=== PATIENT | male | born 1960 | race Caucasian/White ===

== ENCOUNTER 2018-03-12 06:55 | Emergency (ER) | payer MEDICAID, OTHER ==
[2018-03-12 06:59] VITALS: BP 98/71
[2018-03-12] MEDS ORDERED: chlordiazePOXIDE 25 MG CAP PO ONE (06:59)
--- NOTE | 2018-03-12 07:02 | EDPHY ---
H & P Stated Complaint: withdrawl fron heroine and etoh Time Seen by Provider: 03/12/18 07:01 HPI/ROS: CHIEF COMPLAINT: Heroin withdrawal HISTORY OF PRESENT ILLNESS: The patient is a 57-year-old homeless man who comes to the emergency department requesting Suboxone. He states that he has not used heroin in a day. He typically gets Suboxone from [facility] in [place] but ran out. He states that he is scared to go back to [place] because his friend got shot. He states that he has also been drinking heavily every night until he passes out. He call an ambulance this morning asking for a refill of Suboxone. No vomiting. No abdominal pain. No muscle cramping. No headache. No injury. No fevers. REVIEW OF SYSTEMS: Constitutional: denies: chills, fever, recent illness, recent injury EENTM: denies: blurred vision, double vision, nose congestion Respiratory: denies: cough, shortness of breath Cardiac: denies: chest pain, irregular heart rate, lightheadedness, palpitations Gastrointestinal/Abdominal: denies: abdominal pain, diarrhea, nausea, vomiting, blood streaked stools Genitourinary: denies: dysuria, frequency, hematuria, pain Musculoskeletal: denies: joint pain, muscle pain Skin: denies: lesions, rash, jaundice, bruising Neurological: denies: headache, numbness, paresthesia, tingling, dizziness, weakness Hematologic/Lymphatic: denies: blood clots, easy bleeding, easy bruising Immunologic/allergic: denies: HIV/AIDS, transplant EXAM: GENERAL: Disheveled HEAD: Atraumatic, normocephalic. EYES: Pupils equal round and reactive to light, extraocular movements intact, sclera anicteric, conjunctiva are normal. ENT: TMs normal, nares patent, oropharynx clear without exudates. Moist mucous membranes. NECK: Normal range of motion, supple without lymphadenopathy or JVD. LUNGS: Breath sounds clear to auscultation bilaterally and equal. No wheezes rales or rhonchi. HEART: Regular rate and rhythm without murmurs, rubs or gallops. ABDOMEN: Soft, nontender, normoactive bowel sounds. No guarding, no rebound. No masses appreciated. BACK: No CVA tenderness, no spinal tenderness, step-offs or deformities EXTREMITIES: Normal range of motion, no pitting or edema. No clubbing or cyanosis. NEUROLOGICAL: Cranial nerves II through XII grossly intact. Normal speech, normal gait. 5/5 strength, normal movement in all extremities, normal sensation PSYCH: Normal mood, normal affect. SKIN: Warm, dry, normal turgor, no visible rashes or lesions. Source: Patient, EMS Exam Limitations: No limitations - Personal History Current Tetanus/Diphtheria Vaccine: Yes Current Tetanus Diphtheria and Acellular Pertussis (TDAP): Yes - Medical/Surgical History Hx Asthma: No Hx Chronic Respiratory Disease: No Hx Diabetes: No Hx Cardiac Disease: No Hx Renal Disease: No Hx Cirrhosis: No Hx Alcoholism: Yes Hx HIV/AIDS: No Hx Splenectomy or Spleen Trauma: No Other PMH: CHI, PTSD, bipolar - Family History Significant Family History: No pertinent family hx - Social History Smoking Status: Current every day smoker Alcohol Use: Heavy Drug Use: Heroin, Other Constitutional: Initial Vital Signs Temperature (C) 36.6 C 03/12/18 06:56 Heart Rate 85 03/12/18 06:56 Respiratory Rate 18 03/12/18 06:56 Blood Pressure 98/71 L 03/12/18 06:56 O2 Sat (%) 96 03/12/18 06:56 O2 Delivery Mode Room Air Allergies/Adverse Reactions: No Known Allergies Allergy (Unverified 03/12/18 06:58) Home Medications: Medication Instructions Recorded "Klorazepam" 03/11/16 QUEtiapine FUMARATE [Seroquel 200 200 mg PO BID 03/11/16 mg (*)] hydrOXYzine HCL [hydrOXYzine HCL 25 mg PO 03/11/16 (RX)] Gabapentin 600 mg PO 03/12/18 Medical Decision Making ED Course/Re-evaluation: I informed the patient that we do not provide Suboxone. I recommended he return to the [facility] this morning. He is complaining of anxiety. I will treat him with Librium. We offered to [facility] but he declines. He is stable vital signs and is well- appearing. He declines further workup or testing. His blood pressure is slightly low but this is baseline. Differential Diagnosis: Partial list of the Differential diagnosis considered include but were not limited to; anxiety, substance abuse, withdrawal and although unlikely based on the history and physical exam, I also considered infection, head injury. I discussed these differential diagnoses and the plan with the patient as well as the usual and expected course. The patient understands that the diagnosis is provisional and that in medicine we are not always correct and that further workup is often warranted. Usual and customary warnings were given. All of the patient's questions were answered. The patient was instructed to return to the emergency department should the symptoms at all worsen or return, otherwise to followup with the physician as we discussed. - Data Points Medications Given: Discontinued Medications Chlordiazepoxide HCl (Librium) 50 mg PO EDNOW ONE Stop: 03/12/18 07:00 Last Admin: 03/12/18 07:04 Dose: 50 mg Departure - Departure Disposition: Home, Routine, Self-Care Clinical Impression: Heroin abuse Alcohol dependence Qualifiers: Substance use status: unspecified alcohol-induced disorder Qualified Code(s): F10.29 - Alcohol dependence with unspecified alcohol-induced disorder Condition: Fair Instructions: Narcotic Abuse (ED), Abuse of Alcohol (ED) Additional Instructions: [facility] [address] [place], [place] [address], [place] Referrals: NONE *PRIMARY CARE P,. [Primary Care Provider] - 1 day without fail ([facility] in the next couple of hours)
== END 2018-03-12 07:14 | disposition home or self-care (01) ==
LOC: EDUNIT#
DX: F11.10 Opioid abuse, uncomplicated (principal); F10.20 Alcohol dependence, uncomplicated; F17.200 Nicotine dependence, unspecified, uncomplicated

== ENCOUNTER 2018-06-08 01:05 | Emergency (ER) | payer MEDICAID, OTHER ==
[2018-06-08] MEDS ORDERED: NS 1,000 ML IV ONE (01:08)
--- NOTE | 2018-06-08 01:10 | EDPHY ---
H & P Time Seen by Provider: 06/08/18 01:08 HPI/ROS: HPI CHIEF COMPLAINT: Alcohol intoxication, confusion HISTORY OF PRESENT ILLNESS: Patient 58-year-old male, very familiar to myself as well as the emergency room history of homelessness, and daily alcohol use. Patient presents emergency room after [place]. He states that he has been outside in the cold and feels more confused due to the cold weather, additionally states he drank a large amount of alcohol this evening. Additionally palpitations. No chest pain. No shortness of breath. He arrives to the emergency room by EMS with stable vital signs highly intoxicated with alcohol. Past Medical History: Alcoholism. Homeless Past Surgical History: Recent surgery Social History: Daily alcohol use. Homeless. Family History: Noncontributory ROS REVIEW OF SYSTEMS: Limited due to alcohol intoxication Exam Constitutional intoxicated, smells of alcohol, triage nursing summary reviewed , vital signs reviewed, awake/alert. Eyes normal conjunctivae and sclera, EOMI, PERRLA. HENT normal inspection, atraumatic, moist mucus membranes, no epistaxis, neck supple/ no meningismus, no raccoon eyes. Respiratory clear to auscultation bilaterally, normal breath sounds, no respiratory distress, no wheezing. Cardiovascular rate normal, regular rhythm, no murmur, no edema, distal pulses normal. Gastrointestinal soft, non-tender, no rebound, no guarding, normal bowel sounds, no distension, no pulsatile mass. Genitourinary no CVA tenderness. Musculoskeletal no midline vertebral tenderness, full range of motion, no calf swelling, no tenderness of extremities, no meningismus, good pulses, neurovascularly intact. Skin pink, warm, & dry, no rash, skin atraumatic. Neurologic awake, alert and oriented x 3, AAOx3, moves all 4 extremities equally, motor intact, sensory intact, CN II-XII intact, normal cerebellar, normal vision, normal speech. Psychiatric normal mood/affect. Heme/Lymph/Immune no lymphadenopathy. Differential Diagnosis: Includes but is not limited to in a particular order acute alcohol intoxication, dehydration, electrolyte disturbance, cold exposure , cardiac arrhythmia. Medical Decision Making: Plan for this patient IV establishment with IV fluid bolus, check serum alcohol level basic electrolytes, magnesium, EKG, troponin. Vital signs. Make sure he is not hypothermic. Monitor closely. Re-evaluation: EKG interpretation by me on record in [employer] system. Impression time of EKG 1:17 a.m., sinus rhythm rate of 80 without any signs of acute ischemia. EKG is unchanged from his previous EKG dated 03/31/2018. Serum alcohol level 411. 0640: Patient ambulated well throughout the emergency room without any difficulty. Clinically sober. Safe for discharge. Source: Patient, EMS - Medical/Surgical History Hx Asthma: No Hx Chronic Respiratory Disease: No Hx Diabetes: No Hx Cardiac Disease: No Hx Renal Disease: No Hx Cirrhosis: No Hx Alcoholism: Yes Hx HIV/AIDS: No Hx Splenectomy or Spleen Trauma: No Other PMH: CHI, PTSD, bipolar, ETOH - Social History Smoking Status: Current every day smoker Constitutional: Initial Vital Signs Temperature (C) 35 C L 06/08/18 01:25 Heart Rate 74 06/08/18 01:25 Respiratory Rate 16 06/08/18 01:25 Blood Pressure 109/74 06/08/18 01:25 O2 Sat (%) 92 06/08/18 01:25 O2 Delivery Mode Room Air O2 (L/minute) 2 Allergies/Adverse Reactions: No Known Allergies Allergy (Unverified 06/08/18 01:24) Home Medications: Medication Instructions Recorded "Klorazepam" 03/11/16 hydrOXYzine HCL [hydrOXYzine HCL 25 mg PO 03/11/16 (RX)] Gabapentin 600 mg PO 03/12/18 QUEtiapine FUMARATE [Seroquel 200 200 mg PO BID #60 tab 03/31/18 mg (*)] clonazePAM [Klonopin] 2 mg PO BID #60 tablet 03/31/18 Medical Decision Making - Data Points Laboratory Results: Laboratory Results 06/08/18 01:18 06/08/18 01:18 06/08/18 06/08/18 06/08/18 01:18 01:18 01:16 WBC 9.42 10^3/uL 10^3/uL (3.80-9.50) RBC 5.34 10^6/uL 10^6/uL (4.40-6.38) Hgb 15.7 g/dL g/dL (13.7-17.5) Hct 47.9 % % (40.0-51.0) MCV 89.7 fL fL (81.5-99.8) MCH 29.4 pg pg (27.9-34.1) MCHC 32.8 g/dL g/dL (32.4-36.7) RDW 13.7 % % (11.5-15.2) Plt Count 284 10^3/uL 10^3/uL (150-400) MPV 9.1 fL fL (8.7-11.7) Neut % (Auto) 62.0 % % (39.3-74.2) Lymph % (Auto) 31.4 % % (15.0-45.0) [place] % (Auto) 5.7 % % (4.5-13.0) Eos % (Auto) 0.2 % L % (0.6-7.6) Baso % (Auto) 0.5 % % (0.3-1.7) Nucleat RBC Rel Count 0.0 % % (0.0-0.2) Absolute Neuts (auto) 5.83 10^3/uL 10^3/uL (1.70-6.50) Absolute Lymphs (auto) 2.96 10^3/uL 10^3/uL (1.00-3.00) Absolute Monos (auto) 0.54 10^3/uL 10^3/uL (0.30-0.80) Absolute Eos (auto) 0.02 10^3/uL L 10^3/uL (0.03-0.40) Absolute Basos (auto) 0.05 10^3/uL 10^3/uL (0.02-0.10) Absolute Nucleated RBC 0.00 10^3/uL 10^3/uL (0-0.01) Immature Gran % 0.2 % % (0.0-1.1) Immature Gran # 0.02 10^3/uL 10^3/uL (0.00-0.10) Sodium 144 mEq/L mEq/L (135-145) Potassium 3.9 mEq/L mEq/L (3.3-5.0) Chloride 104 mEq/L mEq/L (97-110) Carbon Dioxide 25 mEq/l mEq/l (22-31) Anion Gap 15 mEq/L H mEq/L (6-14) BUN 18 mg/dL mg/dL (7-23) Creatinine 1.0 mg/dL mg/dL (0.7-1.3) Estimated GFR > 60 Glucose 83 mg/dL mg/dL (70-100) Calcium 9.3 mg/dL mg/dL (8.5-10.4) Magnesium 1.8 mg/dL mg/dL (1.6-2.3) Total Bilirubin 0.7 mg/dL mg/dL (0.1-1.4) Conjugated Bilirubin 0.5 mg/dL mg/dL (0.0-0.5) Unconjugated Bilirubin 0.2 mg/dL mg/dL (0.0-1.1) AST 97 IU/L H IU/L (17-59) ALT 61 IU/L IU/L (21-72) Alkaline Phosphatase 119 IU/L IU/L (38-126) POC Troponin I 0.01 ng/mL ng/mL (0.00-0.08) Total Protein 8.0 g/dL g/dL (6.3-8.2) Albumin 4.2 g/dL g/dL (3.5-5.0) Ethyl Alcohol 411 mg/dL H* mg/dL (0-10) Medications Given: Discontinued Medications Sodium Chloride (Ns) 1,000 mls @ 0 mls/hr IV EDNOW ONE; Wide Open PRN Reason: Protocol Stop: 06/08/18 01:09 Last Admin: 06/08/18 01:20 Dose: 1,000 mls Point of Care Test Results: Chemistry 06/08/18 01:16 POC Troponin I 0.01 ng/mL ng/mL (0.00-0.08) Departure - Departure Disposition: Home, Routine, Self-Care Clinical Impression: Alcoholic intoxication Qualifiers: Complication of substance-induced condition: uncomplicated Qualified Code(s): F10.920 - Alcohol use, unspecified with intoxication, uncomplicated Condition: Good Instructions: Alcohol Intoxication (ED), Abuse of Alcohol (ED) Referrals: NONE *PRIMARY CARE P,. [Primary Care Provider] - As per Instructions
[2018-06-08 01:22] LABS: PLATELET COUNT 284 10^3/uL (150-400)
[2018-06-08 06:46] VITALS: BP 95/70
== END 2018-06-08 06:44 | disposition home or self-care (01) ==
LOC: EDUNIT#
DX: F10.129 Alcohol abuse with intoxication, unspecified (principal); E86.9 Volume depletion, unspecified; Z59.0 Homelessness
CPT/HCPCS: 84484-PO; G0480

== ENCOUNTER 2018-06-14 04:13 | Emergency (ER) | payer MEDICAID ==
[2018-06-14] MEDS ORDERED: NS 1,000 ML IV ONE ×4 (04:17→08:04)
--- NOTE | 2018-06-14 04:20 | EDPHY ---
H & P Source: Patient, EMS Exam Limitations: Clinical condition, Intoxication - Medical/Surgical History Hx Asthma: No Hx Chronic Respiratory Disease: No Hx Diabetes: No Hx Cardiac Disease: No Hx Renal Disease: No Hx Cirrhosis: No Hx Alcoholism: Yes Hx HIV/AIDS: No Hx Splenectomy or Spleen Trauma: No Other PMH: CHI, PTSD, bipolar, ETOH - Social History Smoking Status: Current every day smoker Time Seen by Provider: 06/14/18 04:18 HPI/ROS: HPI CHIEF COMPLAINT: Left-sided chest discomfort. Sharp stabbing. HISTORY OF PRESENT ILLNESS: This is a 58-year-old male, homeless, history of alcoholism daily alcohol use, presents emergency room by EMS with left-sided chest discomfort. Describes the pain as sharp stabbing. Pain is worse when he takes deep breath in. Of note the patient is very poor historian. History review of systems somewhat limited. He is unsure exactly when it started. He presents emergency room, he does drink alcohol daily had alcohol earlier this evening. Of noted is noted that his hands are caked in feces Patient denies any trauma this evening. Denies chest wall trauma.. Past Medical History: Alcoholism, homeless. Possible history of CVA Past Surgical History: No recent surgical history Social History: Homeless, daily alcohol use. Family History: Noncontributory ROS REVIEW OF SYSTEMS: Limited due to patient being a poor historian. Exam Constitutional nontoxic appearing, triage nursing summary reviewed, vital signs reviewed, awake/alert. Eyes normal conjunctivae and sclera, EOMI, PERRLA. HENT normal inspection, atraumatic, moist mucus membranes, no epistaxis, neck supple/ no meningismus, no raccoon eyes. Respiratory clear to auscultation bilaterally, normal breath sounds, no respiratory distress, no wheezing. Cardiovascular chest wall mild tender palpation left lateral chest wall, rate normal, regular rhythm, no murmur, no edema, distal pulses normal. Gastrointestinal soft, non-tender, no rebound, no guarding, normal bowel sounds, no distension, no pulsatile mass. Genitourinary no CVA tenderness. Musculoskeletal no midline vertebral tenderness, full range of motion, no calf swelling, no tenderness of extremities, no meningismus, good pulses, neurovascularly intact. Skin pink, warm, & dry, no rash, skin atraumatic. Neurologic awake, alert and oriented x 3, AAOx3, moves all 4 extremities equally, motor intact, sensory intact, CN II-XII intact, normal cerebellar, normal vision, normal speech. Psychiatric normal mood/affect. Heme/Lymph/Immune no lymphadenopathy. Differential diagnosis includes but is not limited to: ACS, atypical chest pain , pneumothorax, pneumonia, pulmonary embolism, aortic dissection, congestive heart failure, tumor, musculoskeletal pain, esophageal pain, GERD, peptic ulcer disease, pancreatitis Medical Decision Making: Plan for this patient IV establishment IV fluid bolus , obtain EKG, troponin, chest x-ray rule out pneumothorax, rule out PE, rule out ACS. Re-evaluation: EKG interpretation by me on record in [employer] system. Impression time of EKG 4:19 a.m., this is sinus tach rate of 104, Q-waves noted inferior leads to 3 AVF I do not appreciate ST elevation. When I compare this patient's EKG to his old EKG dated 03/31/2018 this is very similar morphology. Him the Q-wave complex seen inferior L very similar. I had Dr. Salas evaluate this EKG compared to his old EK G. It is unchanged she does not feel that this an acute ST elevation GA. Patient's chest x-ray reviewed. This shows a left-sided dense pneumonia. Blood culture be obtain. Lactic acid be obtain. Broad-spectrum antibiotics will be given IV vancomycin IV Zosyn. Patient's x-ray reviewed shows a left-sided dense pneumonia. Broad-spectrum antibiotics have been given. Hospitalist service as been consult for admission. Dr. Mike. Labs reviewed. Low potassium low magnesium. These have been ordered for be repleted. Addition patient's lactic acid was elevated above 2. He is afebrile. He has received 2 L of fluid. Repeat lactic pending. Patient placed on CIWA protocol for alcohol withdrawal. 0723AM: Patient has a change in his condition. His heart rate was within the 110s and is now in the 170s. The patient's respiratory rate is increased to 30s to 40s. He is now satting 83% on a non-rebreather. He is agitated. He is going to active withdrawal. IV Ativan has been ordered. Due to his increase in heart rate the patient have an EKG. Patient quickly decompensated at 7:15 a.m.. The patient had a rather quick decompensation. His heart rate became very tachycardic in the 180s. He was hypoxic to 80%. Acutely agitated. He appeared to be going through significant alcohol withdrawal. Due to the patient's acute agitation, hypoxia, tachycardia, respiratory distress with tachypnea the decision was made to intubate the patient emergently. The patient was moved from ER room 12 to ER room 1. RSI medications were pulled. 20 mg of etomidate. 120 mg of succinylcholine was given. ED intubation Direct visualization was obtain with a MAC 4 blade. A 7.5 endotracheal tube was placed directly through the cords. The tube was confirmed in position with good color change on capnography. Bilateral breath sounds, and chest x-ray. Patient has been started on a propofol drip for sedation. Propofol bolus. Precedex. For alcohol draw. Patient's vital signs post intubation current blood pressure 173/49, heart rate 164. 98% intubated. Critical Care: Total Critical Care Time Spent Managing this Patient: 65 Minutes. This time was spent Exclusively with this patient. This Care was exclusive of procedures. The Organ System/life at risk was alcohol draw, delirium tremens, hypoxia, pneumonia, sepsis This Patient was in Critical Condition because respiratory failure. 0742: Hospitalist service as been updated on this patient's condition and changing condition. Patient be admitted to the ICU. Dr. Mike aware. EKG interpretation by me on record in [employer] system. Impression time of EKG 7:46 a.m., SVT rate of 157. No signs of acute ischemia. Chest x-ray reviewed. Endotracheal tube in appropriate position. Slightly high. Will be advanced 1 cm. Dense left pneumonia. Update hospitalist service Deanna COMPUTER CONSULTANT. Understands patient is intubated. Currently patient stable. Patient's current vital signs heart rate 134, pulse ox 97% intubation, blood pressure 106/67. Patient to be admitted to ICU. (Hemal Medeiros) Constitutional: Initial Vital Signs Temperature (C) 36.9 C 06/14/18 04:17 Heart Rate 113 H 06/14/18 04:17 Respiratory Rate 20 06/14/18 04:17 Blood Pressure 130/81 H 06/14/18 04:17 O2 Sat (%) 94 06/14/18 04:17 O2 Delivery Mode Room Air O2 (L/minute) 2 Allergies/Adverse Reactions: No Known Allergies Allergy (Unverified 06/14/18 04:16) Home Medications: Medication Instructions Recorded "Klorazepam" 03/11/16 hydrOXYzine HCL [hydrOXYzine HCL 25 mg PO 03/11/16 (RX)] Gabapentin 600 mg PO 03/12/18 QUEtiapine FUMARATE [Seroquel 200 200 mg PO BID #60 tab 03/31/18 mg (*)] clonazePAM [Klonopin] 2 mg PO BID #60 tablet 03/31/18 Medical Decision Making - Diagnostics Imaging Results: Imaging Impressions Chest X-Ray 06/14/18 04:17 Impression: Bilateral opacities, largest on the left. This may represent multifocal pneumonia although recommend follow-up studies after treatment to ensure resolution and to exclude underlying malignancy. Other Provider: The patient remained in the emergency department and our ICU is currently full. I discussed this with the ICU adjunct nursing faculty and we feel the patient will be best served transferring to a higher level of care where he can receive inpatient ICU care. I contacted Dr. Mohamud at [facility] who has accepted the patient for admission to the medical ICU. The patient will be transferred via critical care transport. I have filled out the EMTALA transfer form. (Nestor Uriarte) - Data Points Laboratory Results: Laboratory Results 06/14/18 04:55 06/14/18 06/14/18 06/14/18 05:45 05:45 05:45 WBC RBC Hgb POC Hgb Hct POC Hct MCV MCH MCHC RDW Plt Count MPV Neut % (Auto) Lymph % (Auto) [place] % (Auto) Eos % (Auto) Baso % (Auto) Nucleat RBC Rel Count Absolute Neuts (auto) Absolute Lymphs (auto) Absolute Monos (auto) Absolute Eos (auto) Absolute Basos (auto) Absolute Nucleated RBC Immature Gran % Seg Neutrophils % Band Neutrophils % Lymphocytes % Monocytes % Eosinophils % Basophils % Metamyelocytes % Myelocytes % Promyelocytes % Blast Cells % Immature Gran # Absolute Seg Neuts Absolute Band Neuts Absolute Lymphocytes Absolute Monocytes Absolute Eosinophils Absolute Basophils Absolute Metamyelocyte Absolute Myelocytes Absolute Promyelocytes Absolute Plasma Cells RBC/WBC/PLT Morphology Absolute Blast Cells Plasma Cells % Platelet Estimate PT 13.8 SEC SEC (12.0-15.0) INR 1.04 (0.83-1.16) APTT 31.3 SEC SEC (23.0-38.0) D-Dimer 0.72 ug/mLFEU H ug/mLFEU (0.00-0.50) VBG Lactic Acid 2.4 mmol/L H mmol/L (0.7-2.1) POC Sodium POC Potassium POC Chloride POC BUN POC Creatinine POC Glucose Magnesium 0.9 mg/dL L* mg/dL (1.6-2.3) Total Bilirubin 1.5 mg/dL H mg/dL (0.1-1.4) Conjugated Bilirubin 0.5 mg/dL mg/dL (0.0-0.5) Unconjugated Bilirubin 1.0 mg/dL mg/dL (0.0-1.1) AST 57 IU/L IU/L (17-59) ALT 44 IU/L IU/L (21-72) Alkaline Phosphatase 86 IU/L IU/L (38-126) POC Troponin I NT-Pro-B Natriuret Pep 1720 pg/mL H pg/mL (0-125) Total Protein 6.4 g/dL g/dL (6.3-8.2) Albumin 3.2 g/dL L g/dL (3.5-5.0) Lipase 33 IU/L IU/L (23-300) Ethyl Alcohol 38 mg/dL H mg/dL (0-10) 06/14/18 06/14/18 06/14/18 05:35 05:07 05:00 WBC RBC Hgb POC Hgb 15.3 gm/dL gm/dL (13.7-17.5) Hct POC Hct 45 % % (40-51) MCV MCH MCHC RDW Plt Count MPV Neut % (Auto) Lymph % (Auto) [place] % (Auto) Eos % (Auto) Baso % (Auto) Nucleat RBC Rel Count Absolute Neuts (auto) Absolute Lymphs (auto) Absolute Monos (auto) Absolute Eos (auto) Absolute Basos (auto) Absolute Nucleated RBC Immature Gran % Seg Neutrophils % Band Neutrophils % Lymphocytes % Monocytes % Eosinophils % Basophils % Metamyelocytes % Myelocytes % Promyelocytes % Blast Cells % Immature Gran # Absolute Seg Neuts Absolute Band Neuts Absolute Lymphocytes Absolute Monocytes Absolute Eosinophils Absolute Basophils Absolute Metamyelocyte Absolute Myelocytes Absolute Promyelocytes Absolute Plasma Cells RBC/WBC/PLT Morphology Absolute Blast Cells Plasma Cells % Platelet Estimate PT REJ INR REJ APTT REJ D-Dimer REJ VBG Lactic Acid POC Sodium 134 mEq/L L mEq/L (135-145) POC Potassium 2.9 mEq/L L mEq/L (3.3-5.0) POC Chloride 94 mEq/L L mEq/L (97-110) POC BUN 5 mg/dL L mg/dL (7-23) POC Creatinine 0.6 mg/dL L mg/dL (0.7-1.3) POC Glucose 93 mg/dL mg/dL (70-100) Magnesium Total Bilirubin Conjugated Bilirubin Unconjugated Bilirubin AST ALT Alkaline Phosphatase POC Troponin I 0.05 ng/mL ng/mL (0.00-0.08) NT-Pro-B Natriuret Pep Total Protein Albumin Lipase Ethyl Alcohol 06/14/18 06/14/18 04:55 04:55 WBC 20.37 10^3/uL H 10^3/uL (3.80-9.50) RBC 5.16 10^6/uL 10^6/uL (4.40-6.38) Hgb 15.2 g/dL g/dL (13.7-17.5) POC Hgb Hct 44.5 % % (40.0-51.0) POC Hct MCV 86.2 fL fL (81.5-99.8) MCH 29.5 pg pg (27.9-34.1) MCHC 34.2 g/dL g/dL (32.4-36.7) RDW 13.1 % % (11.5-15.2) Plt Count 163 10^3/uL 10^3/uL (150-400) MPV 10.2 fL fL (8.7-11.7) Neut % (Auto) Not Reported Lymph % (Auto) Not Reported [place] % (Auto) Not Reported Eos % (Auto) Not Reported Baso % (Auto) Not Reported Nucleat RBC Rel Count Not Reported Absolute Neuts (auto) Not Reported Absolute Lymphs (auto) Not Reported Absolute Monos (auto) Not Reported Absolute Eos (auto) Not Reported Absolute Basos (auto) Not Reported Absolute Nucleated RBC Not Reported Immature Gran % Not Reported Seg Neutrophils % 76.0 % % Band Neutrophils % 7.0 % % Lymphocytes % 6.0 % % Monocytes % 11.0 % % Eosinophils % 0.0 % % Basophils % 0.0 % % Metamyelocytes % 0.0 % % Myelocytes % 0.0 % % Promyelocytes % 0.0 % % Blast Cells % 0.0 % % Immature Gran # Not Reported Absolute Seg Neuts 15.48 10^3/uL H 10^3/uL (1.70-6.50) Absolute Band Neuts 1.43 10^3/uL H 10^3/uL (0.00-0.70) Absolute Lymphocytes 1.22 10^3/uL 10^3/uL (1.00-3.00) Absolute Monocytes 2.24 10^3/uL H 10^3/uL (0.30-0.80) Absolute Eosinophils 0.00 10^3/uL L 10^3/uL (0.03-0.40) Absolute Basophils 0.00 10^3/uL L 10^3/uL (0.02-0.10) Absolute Metamyelocyte 0.00 10^3/mL 10^3/mL (0.00-0.00) Absolute Myelocytes 0.00 10^3/mL 10^3/mL (0.00-0.00) Absolute Promyelocytes 0.00 10^3/uL 10^3/uL (0.00-0.00) Absolute Plasma Cells 0.00 10^3/uL 10^3/uL (0.00-0.00) RBC/WBC/PLT Morphology NORMAL (NORMAL) Absolute Blast Cells 0.00 10^3/uL 10^3/uL (0.00-0.00) Plasma Cells % 0.0 % % Platelet Estimate ADEQUATE (ADEQ) PT INR APTT D-Dimer VBG Lactic Acid POC Sodium POC Potassium POC Chloride POC BUN POC Creatinine POC Glucose Magnesium TNP Total Bilirubin TNP Conjugated Bilirubin TNP Unconjugated Bilirubin TNP AST TNP ALT TNP Alkaline Phosphatase TNP POC Troponin I NT-Pro-B Natriuret Pep TNP Total Protein TNP Albumin TNP Lipase TNP Ethyl Alcohol TNP Medications Given: Acetaminophen (Tylenol Rectal) 650 mg MA Q4HRS PRN PRN Reason: Pain, Mild/Fever,Can't Take PO Stop: 12/11/18 07:55 Last Admin: 06/14/18 07:59 Dose: 650 mg Propofol (Diprivan 10 Mg/Ml (Premix)) 100 mls @ 0 mls/hr IV CONT SABRINA; Titrate PRN Reason: Protocol Stop: 12/11/18 07:59 Last Admin: 06/14/18 07:40 Dose: 100 mls Discontinued Medications Clonazepam (Klonopin) 1 mg PO EDNOW ONE Stop: 06/14/18 06:43 Last Admin: 06/14/18 06:47 Dose: 1 mg Etomidate (Etomidate) 20 mg IVP ONCE ONE Stop: 06/14/18 07:37 Last Admin: 06/14/18 07:38 Dose: 20 mg Sodium Chloride (Ns) 1,000 mls @ 0 mls/hr IV EDNOW ONE; Wide Open PRN Reason: Protocol Stop: 06/14/18 04:18 Last Admin: 06/14/18 04:24 Dose: 1,000 mls Vancomycin/Sodium Chloride (Vancomycin 1 Gm (Premix)) 250 mls @ 250 mls/hr IV EDNOW ONE PRN Reason: Protocol Stop: 06/14/18 06:11 Last Admin: 06/14/18 05:47 Dose: 250 mls Piperacillin/Tazobactam/Dextrose (Zosyn (Premix)) 100 mls @ 200 mls/hr IV EDNOW ONE PRN Reason: Protocol Stop: 06/14/18 05:41 Last Admin: 06/14/18 06:52 Dose: 100 mls Sodium Chloride (Ns) 1,000 mls @ 0 mls/hr IV ONCE ONE PRN Reason: Wide Open Stop: 06/14/18 05:16 Last Admin: 06/14/18 05:47 Dose: 1,000 mls Sodium Chloride (Ns) 1,000 mls @ 0 mls/hr IV EDNOW ONE; Wide Open PRN Reason: Protocol Stop: 06/14/18 07:43 Last Admin: 06/14/18 07:58 Dose: 1,000 mls Lorazepam (Ativan Injection) 1 mg IVP ONCE ONE Stop: 06/14/18 07:14 Last Admin: 06/14/18 07:42 Dose: Not Given Lorazepam (Ativan Injection) 2 mg IVP EDNOW ONE Stop: 06/14/18 07:39 Last Admin: 06/14/18 07:39 Dose: 2 mg Lorazepam (Ativan Injection) 2 mg IVP EDNOW ONE Stop: 06/14/18 07:40 Last Admin: 06/14/18 07:42 Dose: 2 mg Magnesium Oxide (Magnesium Oxide) 800 mg PO ONCE ONE Stop: 06/14/18 06:42 Last Admin: 06/14/18 07:07 Dose: 800 mg Potassium Chloride (Klor Packets) 20 meq PO EDNOW ONE Stop: 06/14/18 05:46 Last Admin: 06/14/18 06:20 Dose: 20 meq Propofol (Diprivan) 60 mg IVP EDNOW ONE Stop: 06/14/18 07:38 Last Admin: 06/14/18 07:40 Dose: 60 mg Quetiapine Fumarate (Seroquel) 400 mg PO EDNOW ONE Stop: 06/14/18 06:42 Last Admin: 06/14/18 06:47 Dose: 400 mg Succinylcholine Chloride (Quelicin) 120 mg IVP ONCE ONE Stop: 06/14/18 07:38 Last Admin: 06/14/18 07:38 Dose: 120 mg Point of Care Test Results: Chemistry 06/14/18 06/14/18 05:35 05:07 POC Sodium 134 mEq/L L mEq/L (135-145) POC Potassium 2.9 mEq/L L mEq/L (3.3-5.0) POC Chloride 94 mEq/L L mEq/L (97-110) POC BUN 5 mg/dL L mg/dL (7-23) POC Creatinine 0.6 mg/dL L mg/dL (0.7-1.3) POC Glucose 93 mg/dL mg/dL (70-100) POC Troponin I 0.05 ng/mL ng/mL (0.00-0.08) ISTAT H&H 06/14/18 05:35 POC Hgb 15.3 gm/dL gm/dL (13.7-17.5) POC Hct 45 % % (40-51) Departure - Departure Disposition: Acute Care Hospital Not [facility] Clinical Impression: Hypomagnesemia, Hypokalemia, Dehydration, Delirium tremens Pneumonia Qualifiers: Pneumonia type: aspiration pneumonia Aspiration pneumonia type: unspecified Laterality: left Lung location: upper lobe of lung Qualified Code(s): J69.0 - Pneumonitis due to inhalation of food and vomit Respiratory failure Qualifiers: Chronicity: acute Respiratory failure complication: hypoxia Qualified Code(s): J96.01 - Acute respiratory failure with hypoxia Alcohol withdrawal Qualifiers: Complication of substance-induced condition: uncomplicated Qualified Code(s): F10.230 - Alcohol dependence with withdrawal, uncomplicated Condition: Critical
[2018-06-14 05:08] LABS: PLATELET COUNT 163 10^3/uL (150-400)
[2018-06-14] MEDS ORDERED: PIPERACILLIN/TAZO 4.5 GM/DEX 100 ML IV ONE (05:12)
[2018-06-14] MEDS ORDERED: VANCOMYCIN HCL/NORMAL SALINE 250 ML IV ONE (05:12)
[2018-06-14] MEDS ORDERED: POTASSIUM CL 20 MEQ PKT PO ONE (05:45)
[2018-06-14 06:13] LABS: INR 1.04 (0.83-1.16); PROTIME(PATIENT) 13.8 SEC (12.0-15.0)
[2018-06-14] MEDS ORDERED: QUEtiapine FUMARATE 200 MG TAB PO ONE (06:41)
[2018-06-14] MEDS ORDERED: MAGNESIUM OXIDE 400 MG TAB PO ONE (06:41)
[2018-06-14] MEDS ORDERED: clonazePAM 1 MG TAB PO ONE (06:42)
[2018-06-14] MEDS ORDERED: ACETAMINOPHEN 325 MG TAB PO PRN (06:43)
[2018-06-14] MEDS ORDERED: ONDANSETRON DISINTEGRATING 4 MG TAB PO PRN (06:43)
[2018-06-14] MEDS ORDERED: ALBUTEROL 3 ML DEYVIAL IH PRN (06:43)
[2018-06-14] MEDS ORDERED: ONDANSETRON 4 MG/2 ML VIAL IVP PRN (06:43)
[2018-06-14] MEDS ORDERED: NS 1,000 ML IV SCH (06:45)
[2018-06-14] MEDS ORDERED: clonazePAM 1 MG TAB ONE (06:46)
[2018-06-14] MEDS ORDERED: QUEtiapine FUMARATE 200 MG TAB ONE (06:46)
[2018-06-14] MEDS ORDERED: FLUMAZENIL 0.5 MG/5 ML MDV IVP PRN (06:49)
[2018-06-14] MEDS ORDERED: LORazepam 2 MG/ML INJ IVP PRN (06:49)
[2018-06-14] MEDS ORDERED: LORazepam 2 MG/ML INJ IVP ONE ×3 (07:13→07:39)
[2018-06-14] MEDS ORDERED: PROPOFOL/EMULSION 1,000 MG/100 ML BOTTLE IV ONE (07:28)
[2018-06-14] MEDS ORDERED: ETOMIDATE 40 MG/20 ML INJ IVP ONE (07:36)
[2018-06-14] MEDS ORDERED: PROPOFOL 200 MG/20 ML VIAL IVP ONE (07:37)
[2018-06-14] MEDS ORDERED: SUCCINYLCHOLINE CHLORIDE 200 MG/10 ML SYR IVP ONE ×2 (07:37→12:10)
[2018-06-14] MEDS ORDERED: NS 500 ML IV PRN (07:38)
[2018-06-14] MEDS ORDERED: DILTIAZEM 25 MG/5 ML VIAL IVP ONE (07:50)
[2018-06-14] MEDS ORDERED: ACETAMINOPHEN 650 MG SUPP PR ONE (07:52)
[2018-06-14] MEDS ORDERED: ACETAMINOPHEN 650 MG SUPP PR PRN (07:56)
[2018-06-14] MEDS ORDERED: DILTIAZEM 25 MG/5 ML VIAL IVP SCH (08:00)
[2018-06-14] MEDS ORDERED: DEXMEDETOMIDINE HCL 400 MCG in NS 100 ML IV ONE (08:00)
[2018-06-14] MEDS ORDERED: PROPOFOL/EMULSION 100 ML IV SCH (08:00)
[2018-06-14] MEDS ORDERED: DEXMEDETOMIDINE HCL 400 MCG in NS 100 ML IV SCH ×2 (08:00→09:00)
--- NOTE | 2018-06-14 08:41 | GHP ---
DATE OF ADMISSION: 06/14/2018 SOURCE: Patient is in acute respiratory distress, unable to provide significant amount of history. Majority obtained from discussion with ED provider and review of EMR. CHIEF COMPLAINT: Shortness of breath. HISTORY OF PRESENT ILLNESS: This is a 58-year-old gentleman with past medical history significant fo r chronic alcohol dependence, HCV, bipolar disorder, PTSD. Patient presents from the [facility] via EMS for increasing shortness of breath. The patient was also complaining primarily of left-goyo ed chest pain, worse with inspiration. REVIEW OF SYSTEMS: Unable to obtain at time my interview as patient had acute decompensation in resp iratory status and was increasingly agitated due to alcohol withdrawal. ALLERGIES: No known drug allergies. HOME MEDICATIONS: As per EMR: Hydroxyzine, clonazepam, Seroquel, gabapentin. PAST MEDICAL HISTORY: Significant for alcohol dependence, PTSD, bipolar disorder, hepatitis C. PAST SURGICAL HISTORY: Unable to obtain as patient in acute respiratory distress and being intubated . FAMILY HISTORY: Unable to obtain, as noted above. SOCIAL HISTORY: Patient drinks, last being earlier in the day. Currently homeless, resides at a [facility] senior living. PHYSICAL EXAMINATION: VITAL SIGNS: Upon arrival to the emergency department, blood pressure 130/81, heart rate 113, respiratory rate 20, O2 saturation 94% on room air, temperature 36.9. Repeat vital s igns: Patient's blood pressure has increased to 179/111. His heart rate has escalated to the 170s. He had increased respiratory distress and agitation with tremor. He also developed hypoxia into the 80s. The patient was moved over to the procedure room for emergent intubation. HEAD: Normocephali c, atraumatic. EYES: Extraocular muscles grossly intact. Patient unable to follow commands. Patie nt with conjunctival injection, no drainage. Pupils are equal, but with decreased reactivity to ligh t. Mucous membranes are dry. No nasal discharge. CV: Tachycardic with slightly distant decreased h eart sounds due to respiratory noises which are coarse in all lung [place]. RESPIRATORY: Patient wit h increased work of breathing, retractions. ABDOMEN: Soft. Hypoactive bowel sounds. Accessory mus cles in use. : Normal external male genitalia. No scrotal edema. EXTREMITIES: Thin, no edema. 1+ pedal pulses bilateral, symmetric. NEURO: Patient is able to move all extremities, but he is ve ry tremulous. Grossly nonfocal. No facial drooping. PSYCH: Patient is increasingly agitated and c ombative, confused. LABORATORY STUDIES: WBC 20.37, H and H are 15.2 and 44.5, MCV 86.2, platelet count 163, absolute ban ds 1.43. PT 13.8, INR is 1.04, PTT is 31.3. D-dimer 0.72. Lactic acid 2.4; repeat is 1.9. Sodium is 134, po tassium is 2.9, chloride is 94, BUN 5, creatinine is 0.6, glucose is 95, magnesium 0.9, total bilirub in 0.5, ALT is 44, AST is 57, alkaline phosphatase 86. Troponin is negative. . Total pr otein 6.4, albumin 3.2. Alcohol level 38. Blood cultures x2 are pending. Chest x-ray: Image was reviewed by me. Report is still pending. Large left upper middle lobe pneum onia. EKG: SVT 150s. Q-waves in inferior leads, old. QTc 416. Repeat chest x-ray, post intubation: Tube appears to be 4 cm above the patrick. Persistent left upp er middle lobe pneumonia. ASSESSMENT/PLAN: A 58-year-old gentleman with history of alcohol dependence, presents with complaint s of left-sided pleuritic chest pain, dyspnea, hypoxia. 1. Acute hypoxic respiratory failure. Patient with acute decompensation and desaturation down into the 80s. He was subsequently and emergently intubated. Prior to intubation, patient received vancom ycin and Zosyn. 2. Severe sepsis with elevated lactate, which is improved after intravenous fluids. Antibiotics hav e been initiated as noted above. Blood cultures are pending. Blood pressures are elevated. Continu e with intravenous fluid hydration. 3. Left upper middle lobe pneumonia. Vancomycin and Zosyn as noted above. 4. Alcohol withdrawal. Patient is significantly agitated, confused. Intubated and will be sedated with Ativan and Precedex drip. 5. Supraventricular tachycardia. Patient received a bolus of Cardizem in the emergency department a nd will monitor on telemetry. 6. Electrolyte abnormalities including hypomagnesemia and hypokalemia. These will be replaced. 7. Hypoalbuminemia secondary to alcohol dependence. 8. Hyponatremia, likely secondary to hypovolemia. Intravenous fluids in process. 9. Elevated D-dimer. Patient is acutely, unstable. At some point, further evaluation with a CT as per day team. 10. Fluid, electrolyte, nutrition: Intravenous fluids as noted above. Electrolytes replacement. M onitoring. Nothing by mouth status. 11. Prophylaxis with sequential compression devices, Lovenox. 12. COR status at this time will be full. DISPOSITION: Patient admitted to inpatient status to the ICU. He is intubated and in acute alcohol withdrawal in addition to pneumonia with severe sepsis. Anticipate greater than 2 midnights' stay. /[id number]/MODL
[2018-06-14] MEDS ORDERED: THIAMINE HCL 500 MG in NS 100 ML IV SCH (09:00)
[2018-06-14] MEDS ORDERED: FOLIC ACID 1 MG TAB PO SCH (09:00)
[2018-06-14] MEDS ORDERED: ENOXAPARIN 40 MG/0.4 ML SYR SC SCH (09:00)
[2018-06-14] MEDS ORDERED: FAMOTIDINE 20 MG TAB PO SCH (09:00)
[2018-06-14] MEDS ORDERED: MULTIVITAMINS 1 EACH TAB PO SCH (09:00)
[2018-06-14] MEDS ORDERED: POTASSIUM Cl (KCl) 10 MEQ/100 ML BAG IV ONE (11:01)
[2018-06-14] MEDS ORDERED: CALCIUM GLUC 10% 1 GM/10 ML VIAL ONE (11:01)
[2018-06-14] MEDS ORDERED: MAGNESIUM SULF 2 GM/WATER 50 ML BAG IV ONE (11:01)
[2018-06-14] MEDS ORDERED: CALCIUM GLUCONATE 50 ML IV ONE (11:30)
[2018-06-14] MEDS ORDERED: MAGNESIUM SULF 2 GM/WATER 50 ML IV ONE ×2 (11:34→11:37)
[2018-06-14 11:57] VITALS: BP 100/72
[2018-06-14] MEDS ORDERED: ETOMIDATE 40 MG/20 ML INJ ONE (12:00)
[2018-06-14] MEDS ORDERED: POTASSIUM Cl (KCl) 100 ML IV SCH (12:00)
[2018-06-14] MEDS ORDERED: ROCURONIUM 100 MG/10 ML VIAL ONE (12:03)
[2018-06-17] MEDS ORDERED: THIAMINE HCL 100 MG TAB PO SCH (06:49)
--- NOTE | 2018-06-21 06:06 | CPEKG ---
Test Reason : OPEN Blood Pressure : / mmHG Vent. Rate : 157 BPM Atrial Rate : 163 BPM P-R Int : 110 ms QRS Dur : 103 ms QT Int : 257 ms P-R-T Axes : 080 -86 000 degrees QTc Int : 416 ms Supraventricular tachycardia Abnormal R-wave progression, early transition Inferior infarct, old Lateral leads are also involved Confirmed by Hemal Medeiros ([id number]) on 06/21/2018 6:05:32 AM Referred By: Confirmed By:Hemal Medeiros
--- NOTE | 2018-06-21 06:06 | CPEKG ---
Test Reason : OPEN Blood Pressure : / mmHG Vent. Rate : 104 BPM Atrial Rate : 106 BPM P-R Int : 124 ms QRS Dur : 120 ms QT Int : 357 ms P-R-T Axes : 072 -77 067 degrees QTc Int : 470 ms Sinus tachycardia Multiform ventricular premature complexes RBBB and LAFB ST elevation, consider inferior injury Confirmed by Hemal Medeiros ([id number]) on 06/21/2018 6:05:32 AM Referred By: Confirmed By:Hemal Medeiros
== END 2018-06-14 11:45 | disposition short-term general hospital (02) ==
LOC: EDUNIT# → UNDOADMOB 05:46
PROC: 5A1935Z Respiratory Ventilation, Less than 24 Consecutive Hours (ICD-10-PCS; principal; 2018-06-14)
PROC: 0BH17EZ Insertion of Endotracheal Airway into Trachea, Via Natural or Artificial Opening (ICD-10-PCS; principal; 2018-06-14)
DX: A41.9 Sepsis, unspecified organism (principal); R65.21 Severe sepsis with septic shock; J18.8 Other pneumonia, unspecified organism; J96.01 Acute respiratory failure with hypoxia; F10.239 Alcohol dependence with withdrawal, unspecified; E83.42 Hypomagnesemia; E87.6 Hypokalemia; E86.0 Dehydration; Z59.0 Homelessness; Y90.1 Blood alcohol level of 20-39 mg/100 ml
CPT/HCPCS: 80305; 82435-PO; 82565-PO; 82947-PO; 84132-PO; 84295-PO; 84484-PO; 84520-PO; 85014-PO; G0480; J0330; J0610; J2060; J2543; J2704; J3370; J3411; J3475; J3480; J7613

== ENCOUNTER 2018-06-18 22:02 | Emergency (ER) | payer MEDICAID ==
--- NOTE | 2018-06-18 22:25 | EDPHY ---
H & P Stated Complaint: ETOH Time Seen by Provider: 06/18/18 22:22 HPI/ROS: HPI The patient presents with alcohol intoxication, brought in by ambulance. Patient was picked up earlier in the night by police for alcohol intoxication. They brought him to the ER, however he is not welcome there any more. He then left the arc and walked into a ditch where he was found by bystanders. Paramedics picked him up outside on the sidewalk curled in a position. The patient denies any falls or injury. He did have an episode of fecal incontinence. He says he has been drinking heavily today. Of note, the patient presented to this emergency department 5 days ago and was diagnosed with severe sepsis, pneumonia, alcohol withdrawal requiring intubation and ICU level of care. He was transferred to [facility] because of bed availability. He says he is still taking antibiotics for a pneumonia. REVIEW OF SYSTEMS 10 systems were reviewed and negative with the exception of the elements mentioned in the history of present illness. PMHx: Recent hypoxic respiratory failure related to sepsis and pneumonia, chronic alcohol abuse, PTSD, hepatitis Soc Hx: Homeless, chronic alcohol abuse PHYSICAL General Appearance: Alert, no distress Eyes: Pupils equal and round no pallor or injection ENT, Mouth: Mucous membranes moist Respiratory: There are no retractions, lungs are clear to auscultation Cardiovascular: Regular rate and rhythm Gastrointestinal: Abdomen is soft and non-tender, no masses, bowel sounds normal Neurological: A&O, moves all extremities Skin: Warm and dry, no rashes Musculoskeletal: Neck is supple non tender Extremities: symmetrical, full range of motion Psychiatric: Patient is oriented X 3, there is no agitation Source: Patient, EMS, Old records Exam Limitations: Intoxication - Personal History Current Tetanus/Diphtheria Vaccine: Unsure Current Tetanus Diphtheria and Acellular Pertussis (TDAP): Unsure - Medical/Surgical History Hx Asthma: No Hx Chronic Respiratory Disease: No Hx Diabetes: No Hx Cardiac Disease: No Hx Renal Disease: No Hx Cirrhosis: No Hx Alcoholism: Yes Hx HIV/AIDS: No Hx Splenectomy or Spleen Trauma: No Other PMH: CHI, PTSD, bipolar, ETOH, TBI - Social History Smoking Status: Current every day smoker Constitutional: Initial Vital Signs Temperature (C) 36.5 C 06/18/18 22:02 Heart Rate 81 06/18/18 22:02 Respiratory Rate 16 06/18/18 22:02 Blood Pressure 105/71 06/18/18 22:02 O2 Sat (%) 83 L 06/18/18 22:02 O2 Delivery Mode Room Air O2 (L/minute) 2 Allergies/Adverse Reactions: No Known Allergies Allergy (Unverified 06/14/18 04:16) Home Medications: Medication Instructions Recorded "Klorazepam" 03/11/16 hydrOXYzine HCL [hydrOXYzine HCL 25 mg PO 03/11/16 (RX)] Gabapentin 600 mg PO 03/12/18 QUEtiapine FUMARATE [Seroquel 200 200 mg PO BID #60 tab 03/31/18 mg (*)] clonazePAM [Klonopin] 2 mg PO BID #60 tablet 03/31/18 levOFLOXACIN [levAQUIN (*)] 750 mg PO DAILY #10 tab 06/19/18 Medical Decision Making - Diagnostics Imaging Results: Imaging Impressions Chest X-Ray 06/18/18 22:09 Impression: Less dense left upper lobe pulmonary consolidation, and near- complete interval clearing of mild airspace disease previously noted at the medial right lung base, compared to 06/14/2018. Recommendation: Continued clinical correlation and follow-up to assure complete resolution. Procedures: IV line placement- Using direct ultrasound guidance, I placed a left-sided IJ using an 18 gauge Angiocath. Patient tolerated the procedure well with no immediate complication. Differential Diagnosis: 58-year-old male with history of homelessness, alcohol abuse, recent episode of pneumonia complicated by sepsis and alcohol withdrawal requiring ICU stay in transfer to [facility]. He now is here with alcohol intoxication, rejected from the [facility], unable to ambulate because of alcohol intoxication. Here, he is hypoxic at about 82% on room air. He denies any complaints. Chest x-ray was performed which showed persistent though improving left-sided pneumonia. He was given a dose of ceftriaxone and azithromycin for this. Labs were otherwise unremarkable except for elevated blood alcohol level. He was observed in the emergency department. His oxygen saturation improved without any interventions to 92-96% on room air. He will be discharged. We have prescribed him as Levaquin and given him actual pills to go home with. Differential diagnosis includes alcohol intoxication, polysubstance abuse, pneumonia. - Data Points Laboratory Results: Laboratory Results 06/18/18 23:20 06/18/18 23:20 06/18/18 06/18/18 06/18/18 23:20 23:20 23:20 WBC 12.13 10^3/uL H 10^3/uL (3.80-9.50) RBC 3.98 10^6/uL L 10^6/uL (4.40-6.38) Hgb 11.5 g/dL L g/dL (13.7-17.5) Hct 34.7 % L % (40.0-51.0) MCV 87.2 fL fL (81.5-99.8) MCH 28.9 pg pg (27.9-34.1) MCHC 33.1 g/dL g/dL (32.4-36.7) RDW 13.6 % % (11.5-15.2) Plt Count 355 10^3/uL 10^3/uL (150-400) MPV 8.8 fL fL (8.7-11.7) Neut % (Auto) Not Reported Lymph % (Auto) Not Reported Cache % (Auto) Not Reported Eos % (Auto) Not Reported Baso % (Auto) Not Reported Nucleat RBC Rel Count Not Reported Absolute Neuts (auto) Not Reported Absolute Lymphs (auto) Not Reported Absolute Monos (auto) Not Reported Absolute Eos (auto) Not Reported Absolute Basos (auto) Not Reported Absolute Nucleated RBC Not Reported Immature Gran % Not Reported Seg Neutrophils % 72.5 % % Band Neutrophils % 0.0 % % Lymphocytes % 16.3 % % Monocytes % 8.2 % % Eosinophils % 1.0 % % Basophils % 2.0 % % Metamyelocytes % 0.0 % % Myelocytes % 0.0 % % Promyelocytes % 0.0 % % Blast Cells % 0.0 % % Immature Gran # Not Reported Absolute Seg Neuts 8.79 10^3/uL H 10^3/uL (1.70-6.50) Absolute Band Neuts 0.00 10^3/uL 10^3/uL (0.00-0.70) Absolute Lymphocytes 1.98 10^3/uL 10^3/uL (1.00-3.00) Absolute Monocytes 0.99 10^3/uL H 10^3/uL (0.30-0.80) Absolute Eosinophils 0.12 10^3/uL 10^3/uL (0.03-0.40) Absolute Basophils 0.24 10^3/uL H 10^3/uL (0.02-0.10) Absolute Metamyelocyte 0.00 10^3/mL 10^3/mL (0.00-0.00) Absolute Myelocytes 0.00 10^3/mL 10^3/mL (0.00-0.00) Absolute Promyelocytes 0.00 10^3/uL 10^3/uL (0.00-0.00) Absolute Plasma Cells 0.00 10^3/uL 10^3/uL (0.00-0.00) Nucleated RBCs 0 /100 WBC /100 WBC (0-0) Absolute Blast Cells 0.00 10^3/uL 10^3/uL (0.00-0.00) Plasma Cells % 0.0 % % Platelet Estimate ADEQUATE (ADEQ) Hypochromasia 1+ H Sodium 138 mEq/L mEq/L (135-145) Potassium 3.8 mEq/L mEq/L (3.3-5.0) Chloride 101 mEq/L mEq/L (97-110) Carbon Dioxide 25 mEq/l mEq/l (22-31) Anion Gap 12 mEq/L mEq/L (6-14) BUN 7 mg/dL mg/dL (7-23) Creatinine 0.5 mg/dL L mg/dL (0.7-1.3) Estimated GFR > 60 Glucose 98 mg/dL mg/dL (70-100) Calcium 8.1 mg/dL L mg/dL (8.5-10.4) Total Bilirubin 0.3 mg/dL mg/dL (0.1-1.4) AST 39 IU/L IU/L (17-59) ALT 44 IU/L IU/L (21-72) Alkaline Phosphatase 82 IU/L IU/L (38-126) Total Protein 6.3 g/dL g/dL (6.3-8.2) Albumin 2.9 g/dL L g/dL (3.5-5.0) Ethyl Alcohol 245 mg/dL H mg/dL (0-10) Medications Given: Discontinued Medications Azithromycin (Zithromax) 500 mg PO EDNOW ONE PRN Reason: Protocol Stop: 06/18/18 23:21 Last Admin: 06/18/18 23:27 Dose: 500 mg Ceftriaxone Sodium/Dextrose (Rocephin 1 Gm (Premix)) 50 mls @ 100 mls/hr IV EDNOW ONE PRN Reason: Protocol Stop: 06/18/18 23:49 Last Admin: 06/18/18 23:28 Dose: 50 mls Departure - Departure Disposition: Home, Routine, Self-Care Clinical Impression: Pneumonia, Alcoholic intoxication, Homeless Condition: Good Instructions: Pneumonia (ED) Referrals: [facility],. [Clinic] - As per Instructions Prescriptions: levOFLOXACIN [levAQUIN (*)] 750 mg PO DAILY #10 tab
[2018-06-18] MEDS ORDERED: AZITHROMYCIN 250 MG TAB PO ONE (23:20)
[2018-06-18] MEDS ORDERED: LORazepam 2 MG/ML INJ IVP PRN (23:20)
[2018-06-18] MEDS ORDERED: LORazepam 1 MG TAB PO PRN (23:20)
[2018-06-18 23:31] LABS: PLATELET COUNT 355 10^3/uL (150-400)
[2018-06-19 01:47] VITALS: BP 116/80
--- NOTE | 2018-06-19 04:10 | CPEKG ---
Test Reason : OPEN Blood Pressure : / mmHG Vent. Rate : 087 BPM Atrial Rate : 088 BPM P-R Int : 120 ms QRS Dur : 116 ms QT Int : 396 ms P-R-T Axes : 067 -76 039 degrees QTc Int : 477 ms Sinus rhythm Atrial premature complexes Left anterior fascicular block Confirmed by Dayami Kenney ([id number]) on 06/19/2018 4:09:56 AM Referred By: Confirmed By:Dayami Kenney
== END 2018-06-19 01:46 | disposition home or self-care (01) ==
LOC: EDUNIT# → EDBD
DX: J18.9 Pneumonia, unspecified organism (principal); F10.920 Alcohol use, unspecified with intoxication, uncomplicated; Y90.8 Blood alcohol level of 240 mg/100 ml or more; F31.9 Bipolar disorder, unspecified; F43.10 Post-traumatic stress disorder, unspecified; F17.210 Nicotine dependence, cigarettes, uncomplicated; Z87.820 Personal history of traumatic brain injury; Z59.0 Homelessness
CPT/HCPCS: 96365; G0480; J0696

== ENCOUNTER 2018-07-18 09:47 | Emergency (ER) | payer MEDICAID ==
[2018-07-18] MEDS ORDERED: LORazepam 2 MG/ML INJ IVP PRN (09:59)
[2018-07-18] MEDS ORDERED: LORazepam 1 MG TAB PO PRN (09:59)
[2018-07-18] MEDS ORDERED: NS 1,000 ML IV ONE (09:59)
--- NOTE | 2018-07-18 10:03 | EDPHY ---
H & P Time Seen by Provider: 07/18/18 09:53 HPI/ROS: CHIEF COMPLAINT: Withdrawal seizure HISTORY OF PRESENT ILLNESS: The patient is a 58-year-old homeless alcoholic man who will also has an opiate addiction. He is on Suboxone for the last 8 months. He reports using heroin last night. Today [place] the market having a seizure. He states that his seizures previously of always been in the setting of alcohol withdrawal. He has last drink of alcohol was about 24 hr ago. He was not incontinent. No oral trauma. No head trauma. He is now awake and alert. He primarily complains of being thirsty and dehydrated. Severity: Moderate Modifying factors: None REVIEW OF SYSTEMS: Constitutional: denies: chills, fever, recent illness, recent injury EENTM: See HPI denies: blurred vision, double vision, nose congestion Respiratory: denies: cough, shortness of breath Cardiac: denies: chest pain, irregular heart rate, lightheadedness, palpitations Gastrointestinal/Abdominal: denies: abdominal pain, diarrhea, nausea, vomiting, blood streaked stools Genitourinary: denies: dysuria, frequency, hematuria, pain Musculoskeletal: denies: joint pain, muscle pain Skin: denies: lesions, rash, jaundice, bruising Neurological: See HPI denies: headache, numbness, paresthesia, tingling, dizziness, weakness Hematologic/Lymphatic: denies: blood clots, easy bleeding, easy bruising Immunologic/allergic: denies: HIV/AIDS, transplant 10 systems reviewed and negative except as noted EXAM: GENERAL: Disheveled, slightly tachycardic, thin HEAD: Atraumatic, normocephalic. EYES: Pupils equal round and reactive to light, extraocular movements intact, sclera anicteric, conjunctiva are normal. ENT: No oral trauma, TMs normal, nares patent, oropharynx clear without exudates. Dry mucous membranes. NECK: Normal range of motion, supple without lymphadenopathy or JVD. LUNGS: Breath sounds clear to auscultation bilaterally and equal. No wheezes rales or rhonchi. HEART: Regular rate and rhythm without murmurs, rubs or gallops. ABDOMEN: Soft, nontender, normoactive bowel sounds. No guarding, no rebound. No masses appreciated. BACK: No CVA tenderness, no spinal tenderness, step-offs or deformities EXTREMITIES: Mild tremors, Normal range of motion, no pitting or edema. No clubbing or cyanosis. NEUROLOGICAL: Cranial nerves II through XII grossly intact. Normal speech, normal gait. 5/5 strength, normal movement in all extremities, normal sensation , normal reflexes PSYCH: Normal mood, normal affect. SKIN: Warm, dry, normal turgor, no visible rashes or lesions. Source: Patient, EMS Exam Limitations: Clinical condition - Medical/Surgical History Hx Asthma: No Hx Chronic Respiratory Disease: No Hx Diabetes: No Hx Cardiac Disease: No Hx Renal Disease: No Hx Cirrhosis: No Hx Alcoholism: Yes Hx HIV/AIDS: No Hx Splenectomy or Spleen Trauma: No Other PMH: CHI, PTSD, bipolar, ETOH, TBI - Family History Significant Family History: No pertinent family hx - Social History Smoking Status: Current every day smoker Alcohol Use: Heavy Drug Use: Heroin Constitutional: Initial Vital Signs Temperature (C) 37 C 07/18/18 10:05 Heart Rate 105 H 07/18/18 10:05 Respiratory Rate 16 07/18/18 10:05 Blood Pressure 107/68 07/18/18 10:05 O2 Sat (%) 96 07/18/18 10:05 O2 Delivery Mode Room Air Allergies/Adverse Reactions: No Known Allergies Allergy (Unverified 06/14/18 04:16) Home Medications: Medication Instructions Recorded "Klorazepam" 03/11/16 hydrOXYzine HCL [hydrOXYzine HCL 25 mg PO 03/11/16 (RX)] Gabapentin 600 mg PO 03/12/18 QUEtiapine FUMARATE [Seroquel 200 200 mg PO BID #60 tab 03/31/18 mg (*)] clonazePAM [Klonopin] 2 mg PO BID #60 tablet 03/31/18 levOFLOXACIN [levAQUIN (*)] 750 mg PO DAILY #10 tab 06/19/18 Medical Decision Making ED Course/Re-evaluation: After several IV attempts the patient refused IV and was plain to leave AMA. We convinced him to stay and receive oral Ativan. He is doing well with this in his heart rate is down to 92. He is less tremulous. We initially planned to [facility] however he has been from there. Patient promises that he will not drink alcohol. He states that he has a court date tomorrow. I will send him out with a take-home Librium. Differential Diagnosis: Partial list of the Differential diagnosis considered include but were not limited to; alcohol withdrawal, polysubstance abuse and although unlikely based on the history and physical exam, I also considered head injury, infection. - Data Points Laboratory Results: Laboratory Results 07/18/18 09:45 07/18/18 09:45 Medications Given: Discontinued Medications Chlordiazepoxide (Librium 25 Mg Prepack#6) 1 btl TAKEHOME EDNOW ONE Stop: 07/18/18 11:39 Last Admin: 07/18/18 12:00 Dose: 1 btl Sodium Chloride (Ns) 1,000 mls @ 0 mls/hr IV EDNOW ONE; Wide Open PRN Reason: Protocol Stop: 07/18/18 10:00 Last Admin: 07/18/18 10:25 Dose: Not Given Lorazepam (Ativan) 0 mg PO Q4H PRN; Protocol PRN Reason: Alcohol Withdrawal w/IV access Stop: 07/18/18 21:59 Last Admin: 07/18/18 10:24 Dose: 1 mg Departure - Departure Disposition: Home, Routine, Self-Care Clinical Impression: Seizure Alcohol withdrawal Qualifiers: Complication of substance-induced condition: uncomplicated Qualified Code(s): F10.230 - Alcohol dependence with withdrawal, uncomplicated Condition: Fair Instructions: Chlordiazepoxide (By mouth), Alcohol Withdrawal (ED) Referrals: Patient,NotPresent [Unknown] - As per Instructions [facility],. [Clinic] - As per Instructions
[2018-07-18 10:13] LABS: PLATELET COUNT 266 10^3/uL (150-400)
[2018-07-18] MEDS ORDERED: CHLORDIAZEPOXIDE 25MG PREPK#6 BTL TAKEHOME ONE (11:38)
[2018-07-18 12:03] VITALS: BP 110/68
--- NOTE | 2018-07-18 12:35 | ASMTCMCOM ---
CM Note CM Note Notes: Patient is well known to the ED and has presented here 13 times since February of this year. Patient tells this CM that he has a court appearance in [place] on Monday and plans to stay at [facility] for the next 2 nights. He does take Suboxone and does have this with him, although he admits to using Heroin as recently as last night. His Suboxone is prescribed at [facility]. This CM contacted Zari at [facility] and confirmed that patient is on the permanent "do not admit" list. Patient confirms this to be true as well. When asked, patient states that he plans to go to the police station to talk to an "officer" about his court situation before heading to [facility] for the night. I offered to get patient to [facility] (Detox) but patient declines. Date Signed: 07/18/2018 12:34 PM Electronically Signed By:Annemarie Barney RN
== END 2018-07-18 12:07 | disposition home or self-care (01) ==
LOC: EDUNIT#
DX: R56.9 Unspecified convulsions (principal); F31.9 Bipolar disorder, unspecified; F43.10 Post-traumatic stress disorder, unspecified; F10.230 Alcohol dependence with withdrawal, uncomplicated; F17.200 Nicotine dependence, unspecified, uncomplicated; Z59.0 Homelessness

== ENCOUNTER 2018-07-29 18:29 | Emergency (ER) | payer MEDICAID ==
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
[2018-07-29] MEDS ORDERED: LIDOCAINE 4%/MENTHOL 1% PATCH TD ONE (21:14)
[2018-07-29] MEDS ORDERED: KETOROLAC 15 MG/1 ML SDV IM ONE (21:14)
[2018-07-29 22:16] VITALS: BP 126/84
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
--- NOTE | 2018-07-30 16:26 | ASMTCAGE ---
CAGE Additional Comments Patient still heavily intoxicated Date Signed: 07/30/2018 04:26 PM Electronically Signed By:Poonam Velazco RN
[2018-07-30] MEDS ORDERED: PATCH REMOVAL 1 EA PATCH TD SCH (21:00)
== END 2018-07-29 22:19 | disposition home or self-care (01) ==
LOC: EDUNIT#
DX: S09.90XA Unspecified injury of head, initial encounter (principal); F10.920 Alcohol use, unspecified with intoxication, uncomplicated; Z59.0 Homelessness
CPT/HCPCS: J1885

== ENCOUNTER 2018-08-01 06:40 | Emergency (ER) | payer MEDICAID ==
[2018-08-01] MEDS ORDERED: LORazepam 1 MG TAB PO ONE (06:47)
[2018-08-01 06:48] VITALS: BP 124/94
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
[2018-08-01] MEDS ORDERED: IBUPROFEN 800 MG TAB PO ONE ×2 (06:58→06:59)
== END 2018-08-01 07:02 | disposition home or self-care (01) ==
LOC: EDUNIT#
DX: F10.20 Alcohol dependence, uncomplicated (principal); F43.10 Post-traumatic stress disorder, unspecified; F31.9 Bipolar disorder, unspecified; F17.200 Nicotine dependence, unspecified, uncomplicated; Z87.820 Personal history of traumatic brain injury; Z59.0 Homelessness

== ENCOUNTER 2018-08-06 00:50 | Inpatient (IN) | payer MEDICAID ==
[2018-08-06] MEDS ORDERED: ONDANSETRON 4 MG/2 ML VIAL IVP ONE (00:56)
[2018-08-06] MEDS ORDERED: FAMOTIDINE 20 MG/2 ML SDV IVP ONE (00:56)
[2018-08-06] MEDS ORDERED: NS 1,000 ML IV ONE (00:56)
--- NOTE | 2018-08-06 00:59 | EDPHY ---
H & P Time Seen by Provider: 08/06/18 00:51 HPI/ROS: HPI CHIEF COMPLAINT: Abdominal pain, nausea, vomiting HISTORY OF PRESENT ILLNESS: 58-year-old male, well known to myself as well as the emergency room with a history of alcoholism, alcohol abuse, alcohol withdrawal, respiratory failure, presents emergency room stating that he has been clean from alcohol for the past 5 days, he staying at a local long term his main complaint is mid abdominal pain burning sensation with associated nausea but no vomiting. No diarrhea. States this started around 11:00 a.m. This evening. It is now 1:00 a.m.. Complains of burning discomfort mid abdomen epigastric region nonradiating. And hurts when you palpate here. He denies any chest pain or shortness of breath. No fever. No shortness of breath. No pleuritic pain. No lower abdominal pain. Past Medical History: Alcoholism daily alcohol use, alcohol dependency, alcohol withdrawal, respiratory failure Past Surgical History: No recent surgery Social History: Denies current use of drugs or alcohol. At the homeless long term. Has been clean for 5 days. Family History: Noncontributory ROS REVIEW OF SYSTEMS: 10 Systems were reviewed and negative with the exception of the elements mentioned in the history of present illness. Exam Constitutional triage nursing summary reviewed, vital signs reviewed, awake/ alert. Eyes normal conjunctivae and sclera, EOMI, PERRLA. HENT normal inspection, atraumatic, moist mucus membranes, no epistaxis, neck supple/ no meningismus, no raccoon eyes. Respiratory clear to auscultation bilaterally, normal breath sounds, no respiratory distress, no wheezing. Cardiovascular rate normal, regular rhythm, no murmur, no edema, distal pulses normal. Gastrointestinal nontender palpation epigastric, no rebound, no guarding, normal bowel sounds, no distension, no pulsatile mass. Genitourinary no CVA tenderness. Musculoskeletal no midline vertebral tenderness, full range of motion, no calf swelling, no tenderness of extremities, no meningismus, good pulses, neurovascularly intact. Skin pink, warm, & dry, no rash, skin atraumatic. Neurologic awake, alert and oriented x 3, AAOx3, moves all 4 extremities equally, motor intact, sensory intact, CN II-XII intact, normal cerebellar, normal vision, normal speech. Psychiatric normal mood/affect. Heme/Lymph/Immune no lymphadenopathy. Differential diagnosis includes but is not limited to and in no particular order : Bowel obstruction, appendicitis, gallbladder disease, diverticulitis, colitis , enteritis, perforated viscus, gastritis, GERD, esophagitis, urinary tract infection, pyelonephritis, kidney stones Medical Decision Making: Plan for this patient IV establishment IV fluid bolus IV Pepcid, basic blood work, EKG, CT scan abdomen pelvis with IV contrast, check lipase, LFTs. Drug screen, alcohol. Re-evaluation: EKG interpretation by me on record in Functional Neuromodulation system. Impression time of EKG 1:17 a.m., sinus rhythm rate of 98 PVC present. No signs of acute ischemic changes when compared to the patient's old EKG dated 06/18/2018 this is unchanged. Unchanged morphology. Left anterior fascicular block present. CT scan abdomen pelvis with IV contrast this shows a mass in the distal CBD. The common bile duct is dilated 11 mm. This mass is 9 mm. This will need further evaluation. Patient be admitted to the hospital for this. I have consult Dr. Mike who agrees to admit. Source: Patient, EMS - Personal History Tetanus Vaccine Date: 2014 - Medical/Surgical History Hx Asthma: No Hx Chronic Respiratory Disease: No Hx Diabetes: No Hx Cardiac Disease: No Hx Renal Disease: No Hx Cirrhosis: No Hx Alcoholism: Yes Hx HIV/AIDS: No Hx Splenectomy or Spleen Trauma: No Other PMH: CHI, PTSD, bipolar, ETOH, TBI. Heroin use. - Social History Smoking Status: Current every day smoker Constitutional: Initial Vital Signs Temperature (C) 36.4 C 08/06/18 00:57 Heart Rate 105 H 08/06/18 00:57 Respiratory Rate 18 08/06/18 00:57 Blood Pressure 112/86 H 08/06/18 00:57 O2 Sat (%) 96 08/06/18 00:57 O2 Delivery Mode Room Air Allergies/Adverse Reactions: No Known Allergies Allergy (Verified 08/06/18 00:56) Home Medications: Medication Instructions Recorded Buprenorphine HCl/Naloxone HCl 1 each SL DAILY 08/01/18 [Suboxone 8 mg-2 mg Sl Film] QUEtiapine FUMARATE [Seroquel 200 200 - 400 mg PO DAILY 08/01/18 mg (*)] traZODone [traZODONE 100MG (*)] 200 mg PO HS 08/01/18 Gabapentin [Neurontin 300 MG (*)] 300 mg PO QID 08/06/18 Herbals/Supplements -Info Only 1 ea PO DAILY 08/06/18 Multivitamins [Multivitamin (*)] 1 each PO DAILY 08/06/18 Medical Decision Making - Diagnostics Imaging Results: Imaging Impressions Guidance Ultrasound 08/06/18 00:00 Impression: 5 [place] double lumen peripherally inserted central catheter is ready to use. Abdomen CT 08/06/18 00:56 Impression: 1. Hyperdense 9 mm mass within the distal common bile duct, CBD stone versus tumor. 2. Nonobstructing bilateral nephrolithiasis. 3. Mild haziness in the upper abdominal mesentery without discrete fluid collection or ascites. 4. Moderate constipation. The study was performed as an emergency on-call case and discussed by telephone with Dr. Hemal Weinberg at 2:20 a.m. The final interpretation is concordant with the original communication. - Data Points Laboratory Results: Laboratory Results 08/06/18 01:10 08/06/18 01:10 Medications Given: Chlordiazepoxide HCl (Librium) 10 mg PO TID PRN PRN Reason: Anxiety, Able to Take PO Stop: 02/02/19 03:56 Last Admin: 08/06/18 05:08 Dose: 10 mg Haloperidol Lactate (Haldol Injection) 5 mg IVP Q6HRS PRN PRN Reason: Agitation Stop: 02/02/19 14:57 Last Admin: 08/06/18 15:21 Dose: 5 mg Sodium Chloride (1/2 Ns) 1,000 mls @ 75 mls/hr IV CONT SABRINA Stop: 02/02/19 02:59 Last Admin: 08/06/18 05:52 Dose: 1,000 mls Famotidine/Sodium Chloride (Pepcid 20 Mg (Premix)) 50 mls @ 200 mls/hr IV Q12HRS SABRINA Stop: 02/02/19 20:59 Last Admin: 08/06/18 20:42 Dose: 50 mls Thiamine HCl 500 mg/ Sodium (Chloride) 105 mls @ 210 mls/hr IV DAILY SABRINA Stop: 02/02/19 04:14 Last Admin: 08/06/18 05:53 Dose: 105 mls Dexmedetomidine HCl 400 mcg/ (Sodium Chloride) 104 mls @ 0 mls/hr IV CONT SABRINA; Titrate PRN Reason: Protocol Stop: 02/02/19 14:59 Last Admin: 08/06/18 20:55 Dose: 104 mls Lorazepam (Ativan) 0.5 - 1 mg PO Q6HRS PRN PRN Reason: Anxiety, Able to Take PO Stop: 02/02/19 02:58 Last Admin: 08/06/18 12:31 Dose: 1 mg Lorazepam (Ativan Injection) 0 mg IVP Q1H PRN; Protocol PRN Reason: Alcohol Withdrawal w/IV access Stop: 02/02/19 03:54 Last Admin: 08/06/18 20:42 Dose: 2 mg Lorazepam (Ativan Injection) 2 mg IVP Q6 SABRINA Stop: 02/02/19 17:59 Last Admin: 08/06/18 19:08 Dose: Not Given Nicotine (Nicoderm Cq) 14 mg TD DAILY SABRINA Stop: 02/02/19 08:59 Last Admin: 08/06/18 08:38 Dose: 14 mg Oxycodone HCl (Oxycodone Ir) 5 - 10 mg PO Q6HRS PRN PRN Reason: Pain, Severe Able to Take PO Stop: 08/16/18 02:58 Last Admin: 08/06/18 12:31 Dose: 10 mg Quetiapine Fumarate (Seroquel) 200 mg PO HS SABRINA Stop: 02/02/19 20:59 Last Admin: 08/06/18 22:09 Dose: Not Given Senna/Docusate Sodium (Senokot-S) 1 - 2 tab PO BID SABRINA PRN Reason: Protocol Stop: 02/02/19 08:59 Last Admin: 08/06/18 22:09 Dose: Not Given Trazodone HCl (Trazodone) 100 mg PO HS SABRINA Stop: 02/02/19 20:59 Last Admin: 08/06/18 22:10 Dose: Not Given Discontinued Medications Famotidine (Pepcid) 20 mg IVP EDNOW ONE Stop: 08/06/18 00:57 Last Admin: 08/06/18 01:21 Dose: 20 mg Sodium Chloride (Ns) 1,000 mls @ 0 mls/hr IV EDNOW ONE; Wide Open PRN Reason: Protocol Stop: 08/06/18 00:57 Last Admin: 08/06/18 01:19 Dose: 1,000 mls Lorazepam (Ativan Injection) 1 mg IVP EDNOW ONE Stop: 08/06/18 03:08 Last Admin: 08/06/18 03:13 Dose: 1 mg Lorazepam (Ativan Injection) 2 mg IM ONCE ONE Stop: 08/06/18 14:51 Last Admin: 08/06/18 19:07 Dose: Not Given Morphine Sulfate (Morphine) 1 - 2 mg IVP Q1HR PRN PRN Reason: Pain, Breakthrough Stop: 08/16/18 02:58 Last Admin: 08/06/18 03:13 Dose: 2 mg Ondansetron HCl (Zofran) 4 mg IVP EDNOW ONE Stop: 08/06/18 00:57 Last Admin: 08/06/18 01:21 Dose: 4 mg Quetiapine Fumarate (Seroquel) 200 mg PO ONCE ONE Stop: 08/06/18 09:55 Last Admin: 08/06/18 11:30 Dose: 200 mg Ziprasidone (Geodon) 20 mg IM ONCE ONE Stop: 08/06/18 14:50 Last Admin: 08/06/18 21:05 Dose: Not Given Point of Care Test Results: Chemistry 08/06/18 01:13 POC Troponin I 0.01 ng/mL ng/mL (0.00-0.08) Departure - Departure Disposition: [facility] Acute Clinical Impression: Common bile duct mass Condition: Fair
[2018-08-06 01:26] LABS: PLATELET COUNT 160 10^3/uL (150-400)
[2018-08-06] MEDS ORDERED: IOPAMIDOL (ISOVUE-300) 100 ML BTL ONE (01:26)
[2018-08-06 01:31] LABS: INR 0.89 (0.83-1.16); PROTIME(PATIENT) 12.3 SEC (12.0-15.0)
[2018-08-06] MEDS ORDERED: ONDANSETRON 4 MG/2 ML VIAL IVP PRN (02:59)
[2018-08-06] MEDS ORDERED: ONDANSETRON DISINTEGRATING 4 MG TAB PO PRN (02:59)
[2018-08-06] MEDS ORDERED: 1/2 NS 1,000 ML IV SCH (03:00)
[2018-08-06] MEDS ORDERED: hydrOXYzine HCL 25 MG TAB PO PRN (03:04)
[2018-08-06] MEDS ORDERED: MAGNESIUM HYDROXIDE 30 ML UDCUP PO PRN (03:05)
[2018-08-06] MEDS ORDERED: BISACODYL 10 MG SUPP PR PRN (03:05)
[2018-08-06] MEDS ORDERED: POLYETHYLENE GLYCOL 3350 17 GM PKT PO PRN (03:05)
[2018-08-06] MEDS ORDERED: LACTULOSE 20 GM/30 ML UDCUP PO PRN (03:05)
[2018-08-06] MEDS ORDERED: LORazepam 2 MG/ML INJ IVP ONE (03:07)
[2018-08-06] MEDS ORDERED: LORazepam 2 MG/ML INJ ONE (03:11)
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
[2018-08-06] MEDS ORDERED: FLUMAZENIL 0.5 MG/5 ML MDV IVP PRN (03:55)
[2018-08-06] MEDS: THIAMINE HCL 500 MG in NS 100 ML IV SCH (05:53)
[2018-08-06] MEDS: oxyCODONE IR 5 MG TAB PO PRN ×3 (06:02→12:31)
--- NOTE | 2018-08-06 08:36 | HOSPPROG ---
Hospitalist Progress Note Assessment/Plan: # ?distal CBD mass vs stone - GI consulted (discussed with Dr Barclay) - will check MRCP today - LFTs ok - oncology aware # hx etOH - reports sobriety for 5 days - follow for w/d, cont thiamine # hx drug abuse - will check hepatitis panel # hx endocarditis - treated at [facility], does not remember the organism or valve , but it was non-surgical # hx closed head injury - may complicate overall care - cog eval # mild hyperNa - cont 1/2 NS Subjective: conversant Objective: Vital Signs Temp Pulse Resp BP Pulse Ox 36.6 C 88 16 151/109 H 97 08/06/18 07:15 08/06/18 07:15 08/06/18 07:15 08/06/18 07:15 08/06/18 07:15 08/05/1818 08/07/18 05:59 05:59 05:59 Intake Total 1000 Balance 1000 PT 12.3 SEC (12.0-15.0) 08/06/18 01:10 INR 0.89 (0.83-1.16) 08/06/18 01:10 35 minutes of prolonged, direct patient care time - Physical Exam Gastrointestinal: other (RUQ TTP), No guarding, No rebound, No distension ICD10 Worksheet Patient Problems: Problems Problem Status Onset Common bile duct mass Acute Alcohol dependence Acute Alcoholic intoxication Acute Dehydration Acute Delirium tremens Acute Head injury Acute Heroin abuse Acute Hypokalemia Acute Hypomagnesemia Acute Pneumonia Acute Respiratory failure Acute Seizure Acute
[2018-08-06] MEDS: NICOTINE 14 MG/24 HR PATCH TD SCH (08:38)
[2018-08-06] MEDS: SENNOSIDES/DOCUSATE SODIUM TAB PO SCH ×2 (08:39→22:09)
[2018-08-06] MEDS: LORazepam 2 MG/ML INJ IVP PRN ×4 (08:39→20:42)
[2018-08-06] MEDS ORDERED: QUEtiapine FUMARATE 200 MG TAB PO ONE (09:54)
[2018-08-06] MEDS ORDERED: ALTEPLASE 2 MG VIAL IVP PRN (11:22)
[2018-08-06] MEDS: LORazepam 0.5 MG TAB PO PRN ×2 (12:31→23:53)
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
[2018-08-06] MEDS ORDERED: GADOBUTROL 10 ML VIAL IVP ONE (14:01)
--- NOTE | 2018-08-06 14:22 | ASMTLACE ---
AMY Comorbidities - select Answers: Other Notes: Hx of TBI all that apply # of Emergency department Answers: 12+ visits in the last 6 months Social determinants Answers: History of substance abuse (ETOH, street drugs, prescription drugs, etc.) Homelessness (street, nursing home) History of trauma (PTSD, child abuse, domestic violence, etc.) Mental health diagnosis (anxiety, depression, pers onality disorders, etc.) Score: 19 Date Signed: 08/06/2018 07:57 AM Electronically Signed By:Abena Mcdermott
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
[2018-08-06] MEDS ORDERED: ZIPRASIDONE MESYLATE 20 MG VIAL IM ONE (14:49)
[2018-08-06] MEDS ORDERED: LORazepam 2 MG/ML INJ IM ONE (14:50)
[2018-08-06] MEDS ORDERED: HALOPERIDOL LACT 5 MG/ML INJ IVP PRN (14:58)
[2018-08-06] MEDS ORDERED: DEXMEDETOMIDINE HCL 400 MCG in NS 100 ML IV SCH (15:00)
--- NOTE | 2018-08-06 15:09 | HOSPPROG ---
Hospitalist Progress Note Assessment/Plan: Patient has become increasing agitated throughout the day. He is unable to describe to me what he is being treated for. He appears to be talking to someone who is not present in the room. He wants to leave AMA. HE is not stable on his feet. He has received a total of ativan 5mg IV today for possible etOH withdrawal. I do not think he has decisional capacity currently. I think that leaving poses an immediate risk to his health given his current condition. I have placed him on an MIH and completed the paperwork. I have written for him to get haldol IV then placed on a precedex gtt. He will get geodon IM if haldol IV is not successful. 35 mins CC time in addition to time spent earlier in the day. Objective: Vital Signs Temp Pulse Resp BP Pulse Ox 36.8 C 92 16 149/100 H 91 L 08/06/18 11:45 08/06/18 11:45 08/06/18 11:45 08/06/18 11:45 08/06/18 11:45 08/05/18 08/06/18 08/07/18 05:59 05:59 05:59 Intake Total 1000 Balance 1000 PT 12.3 SEC (12.0-15.0) 08/06/18 01:10 INR 0.89 (0.83-1.16) 08/06/18 01:10 ICD10 Worksheet Patient Problems: Problems Problem Status Onset Alcohol dependence Acute Heroin abuse Acute Alcoholic intoxication Acute Head injury Acute Pneumonia Acute Hypomagnesemia Acute Hypokalemia Acute Dehydration Acute Respiratory failure Acute Delirium tremens Acute Seizure Acute Common bile duct mass Acute
--- NOTE | 2018-08-06 15:10 | ASMTCMCOM ---
CM Note CM Note Notes: Patient briefly reviewed in rounds. He is homeless and struggles with mental health issues and substance abuse. He has been abusive to nursing staff and is not really oriented. MRI ordered, unable to obtain IV access and has had a PICC placed for testing. Security has been called numerous times to help control behaviors He was not compliant with the MRI testing and has been placed on a medical detained at present. Transferred to SDU for medical management. CM to follow. Plan: TBD Date Signed: 08/06/2018 03:09 PM Electronically Signed By:Carol Ann Irwin RN
[2018-08-06] MEDS: LORazepam 2 MG/ML INJ IVP SCH (19:08)
[2018-08-06] MEDS: FAMOTIDINE 20 MG/NACL 50 ML IV SCH (20:42)
[2018-08-06] MEDS: QUEtiapine FUMARATE 200 MG TAB PO SCH ×2 (22:09→23:53)
[2018-08-06] MEDS: traZODone 100 MG TAB PO SCH ×2 (22:10→23:53)
[2018-08-06 23:45] LABS: HEPATITIS B SURFACE ANTIGEN NEGATIVE (NEGATIVE)
[2018-08-07] MEDS ORDERED: LORazepam 1 MG TAB PO PRN (00:04)
[2018-08-07 00:17] LABS: HEPATITIS A ANTIBODY IGM (BCH) NEGATIVE (NEGATIVE); HEPATITIS B CORE AB IGM NEGATIVE (NEGATIVE); HEPATITIS C ANTIBODY TOTAL REACTIVE (NEGATIVE)
[2018-08-07] MEDS: LORazepam 2 MG/ML INJ IVP SCH ×2 (00:19→07:10)
--- NOTE | 2018-08-07 06:56 | CPEKG ---
Test Reason : OPEN Blood Pressure : / mmHG Vent. Rate : 098 BPM Atrial Rate : 099 BPM P-R Int : 136 ms QRS Dur : 150 ms QT Int : 406 ms P-R-T Axes : 000 -80 063 degrees QTc Int : 519 ms Sinus tachycardia Ventricular premature complex Nonspecific IVCD with LAD Inferolateral infarct, old Confirmed by Hemal Medeiros ([id number]) on 08/07/2018 6:55:45 AM Referred By: Confirmed By:Hemal Medeiros
[2018-08-07] MEDS: oxyCODONE IR 5 MG TAB PO PRN ×3 (07:55→22:32)
[2018-08-07] MEDS: SENNOSIDES/DOCUSATE SODIUM TAB PO SCH ×2 (07:55→21:57)
[2018-08-07] MEDS: FAMOTIDINE 20 MG/NACL 50 ML IV SCH (08:06)
[2018-08-07] MEDS: NICOTINE 14 MG/24 HR PATCH TD SCH (08:06)
[2018-08-07] MEDS: THIAMINE HCL 500 MG in NS 100 ML IV SCH (08:06)
--- NOTE | 2018-08-07 09:03 | HOSPPROG ---
Hospitalist Progress Note Assessment/Plan: #CBD mass: MRCP pending. Needs PICC replaced. May need EUS, ERCP. Appreciate GI consult #Polysubstance abuse: counseled on cessation. Last drink > 5 days ago -resume Suboxone #h/o endocarditis: long hospitalization at [facility] a few months ago #Acute metabolic encephalopathy: yesterday. MS clear today. Does not appear to be withdrawing form Etoh #h/o TBI: cog eval #Mild hyponatremia: 1/2 NS. Repeat in AM #Diet: clears Disp: inpatient admission for further imaging possible ERCP Subjective: crampy epigastric pain Objective: Vital Signs Temp Pulse Resp BP Pulse Ox 36.5 C 80 16 119/66 96 08/07/18 08:00 08/07/18 08:00 08/07/18 08:00 08/07/18 08:00 08/07/18 06:00 08/06/18 08/07/18 08/08/18 05:59 05:59 05:59 Intake Total 1000 833 Balance 1000 833 PT 12.3 SEC (12.0-15.0) 08/06/18 01:10 INR 0.89 (0.83-1.16) 08/06/18 01:10 - Time Spent With Patient Time Spent with Patient: greater than 35 minutes Time Spent with Patient: Greater than 35 minutes spent on this patients care, greater than 50% of time spent counseling, educating, and coordinating care regarding the above mentioned plan. - Physical Exam Constitutional: no apparent distress Eyes: PERRL Ears, Nose, Mouth, Throat: moist mucous membranes Cardiovascular: regular rate and rhythym Respiratory: no respiratory distress Gastrointestinal: tenderness (mild epigastric TTP), No guarding, No rebound Genitourinary: No gary in urethra Skin: warm Neurologic: AAOx3 Psychiatric: interacting appropriately, No encephalopathic ICD10 Worksheet Patient Problems: Problems Problem Status Onset Common bile duct mass Acute Alcohol dependence Acute Alcoholic intoxication Acute Dehydration Acute Delirium tremens Acute Head injury Acute Heroin abuse Acute Hypokalemia Acute Hypomagnesemia Acute Pneumonia Acute Respiratory failure Acute Seizure Acute
[2018-08-07] MEDS ORDERED: QUEtiapine FUMARATE 200 MG TAB PO SCH (10:45)
[2018-08-07] MEDS ORDERED: QUEtiapine FUMARATE 200 MG TAB PO ONE (11:45)
[2018-08-07] MEDS: ACETAMINOPHEN 325 MG TAB PO PRN (11:52)
[2018-08-07] MEDS: FAMOTIDINE 20 MG TAB PO SCH ×2 (11:52→21:58)
[2018-08-07] MEDS: LORazepam 1 MG TAB PO PRN ×3 (11:52→23:58)
--- NOTE | 2018-08-07 13:22 | GCON ---
GROUT MACHINE TENDER CONSULTATION HISTORY OF PRESENT ILLNESS: The patient is a 58-year-old white male with a past medical history incl uding alcoholism and alcohol dependence, heroin abuse, homelessness, bipolar disorder, posttraumatic stress disorder, and a history of pneumonia, hypoxemic respiratory failure, requiring intubation in O ctober of this year. He was initially admitted on 08/06/2018, for epigastric and right upper quadran t pain. He was found to have a common bile duct mass, with some evidence of biliary obstruction. He was initially admitted to the floor and was subsequently transferred back to the intensive care unit for increased agitation and anxiety. He is currently on a medical detainer. Patient is still somew hat anxious and agitated. All history is gleaned from the medical record. REVIEW OF SYSTEMS: Ten-point review of systems is performed and negative, except for what is listed in HPI. PAST MEDICAL HISTORY: Again significant for polysubstance abuse, alcoholism, bipolar disorder, PTSD, recent history of pneumonia and acute hypoxemic respiratory failure, and homelessness. ALLERGIES: No known allergies to medications. MEDICATIONS: At home include Suboxone, Seroquel, and trazodone. SOCIAL HISTORY: He is a 40+ pack-year smoker and continues to smoke. No recent alcohol use. He is 5 days sober. However, he does use heroin, marijuana, and amphetamines. He is an unemployed carpent er. He is homeless. PHYSICAL EXAM: VITAL SIGNS: Blood pressure is 106/80, pulse 91, respiration rate 18, temperature 36 .8, oxygen saturation 96% on room air. GENERAL: He is a well-developed, well-nourished 58-year-old white male who is somewhat agitated. HEENT: Eyes are PERRL, EOMI. Throat shows no erythema or tons illar hypertrophy. NECK: Supple. There is no cervical adenopathy. HEART: Regular rate and rhythm , without murmurs, rubs, or gallops. LUNGS: Diminished breath sounds but no wheeze. There is a pro longation of expiratory phase. ABDOMEN: Soft, but right upper quadrant tenderness. Bowel sounds ar e present. EXTREMITIES: No clubbing, cyanosis, or edema. LABORATORIES: White count 7.7, hemoglobin 13, hematocrit 42. Platelet count is 160. Sodium 146, po tassium 3.9, chloride 107, CO2 27, BUN 29, creatinine 0.9. Glucose is 100. AST is mildly elevated a t 112. ALT is 46. Alkaline phosphatase 136. Toxicology is non-negative for opiates, amphetamines, benzodiazepines, marijuana. Hepatitis C antibody is reactive. IMPRESSION: 1. Abdominal pain. 2. Common bile duct mass with biliary obstruction. 3. Alcohol withdrawals with history of delirium tremens. 4. Bipolar disorder. 5. History of heroin abuse. 6. Agitation and anxiety. RECOMMENDATIONS: 1. Agree with continued anxiety control and sedation. 2. MRCP pending. 3. Anticipate ERCP soon. 4. Adequate pain control. 5. Continue medical detainer for now. /[id number]/MODL
[2018-08-07] MEDS ORDERED: HALOPERIDOL LACT 5 MG/ML INJ IVP PRN (16:03)
--- NOTE | 2018-08-07 16:29 | ASMTCMCOM ---
CM Note CM Note Notes: Patient to have an MRI to check to see if mass vs stone. Patient given Homeless res for [facility] Medicaid info. Date Signed: 08/07/2018 04:28 PM Electronically Signed By:Amalia Wick LCSW
[2018-08-07] MEDS: GABAPENTIN 300 MG CAP PO SCH ×2 (16:58→21:57)
--- NOTE | 2018-08-07 17:35 | PDMN ---
Medical Necessity Medical necessity: Pt meets IP criteria as of 08/07/2018 per and MCG [id number] ( gallbladder or bile duct inflammation or stone); los > 2 mn for ongoing tx and evaluation of common bile duct mass vs stone as well as polysubstance abuse and metabolic encephalopathy; requiring further workup, GI consultation with possible intervention, medication management, and therapies.
[2018-08-07] MEDS ORDERED: GADOBUTROL 10 ML VIAL IVP ONE (20:08)
[2018-08-07] MEDS: QUEtiapine FUMARATE 200 MG TAB PO SCH (21:57)
[2018-08-07] MEDS: traZODone 100 MG TAB PO SCH (21:58)
[2018-08-07] MEDS ORDERED: LORazepam 2 MG/ML INJ ONE (22:05)
[2018-08-07] MEDS: METHOCARBAMOL 750 MG TAB PO PRN (22:32)
[2018-08-07] MEDS ORDERED: LORazepam 2 MG/ML INJ IVP ONE (22:45)
[2018-08-08] MEDS: oxyCODONE IR 5 MG TAB PO PRN ×2 (03:51→08:31)
[2018-08-08] MEDS: LORazepam 1 MG TAB PO PRN (06:08)
[2018-08-08] MEDS: GABAPENTIN 300 MG CAP PO SCH ×4 (06:08→21:51)
[2018-08-08] MEDS: SENNOSIDES/DOCUSATE SODIUM TAB PO SCH ×2 (08:25→21:49)
[2018-08-08] MEDS: QUEtiapine FUMARATE 200 MG TAB PO SCH ×2 (08:25→21:50)
[2018-08-08] MEDS: NICOTINE 14 MG/24 HR PATCH TD SCH (08:25)
[2018-08-08] MEDS: FAMOTIDINE 20 MG TAB PO SCH ×2 (08:25→21:51)
[2018-08-08] MEDS: MULTIVITAMINS 1 EACH TAB PO SCH (08:25)
[2018-08-08] MEDS ORDERED: Herbals/Supplements -Info Only PO SCH (09:00)
--- NOTE | 2018-08-08 09:32 | HOSPPROG ---
Hospitalist Progress Note Assessment/Plan: #CBD mass: MRCP with CBD stone. [place] to see today. #Polysubstance abuse: counseled on cessation. Last drink > 5 days ago -resume Suboxone #h/o endocarditis: long hospitalization at [facility] a few months ago #Acute metabolic encephalopathy: yesterday. MS clear today. Does not appear to be withdrawing form Etoh #h/o TBI: cog eval #Mild hyponatremia: resolved #Diet: clears Disp: inpatient admission for further imaging possible ERCP Subjective: mild abd pain Objective: Vital Signs Temp Pulse Resp BP Pulse Ox 36.5 C 82 18 95/63 L 92 08/08/18 08:00 08/08/18 08:00 08/08/18 08:00 08/08/18 08:00 08/08/18 08:00 Laboratory Results 08/08/18 04:00 08/07/18 08/08/18 08/09/18 05:59 05:59 05:59 Intake Total 2332 Balance 2332 PT 12.3 SEC (12.0-15.0) 08/06/18 01:10 INR 0.89 (0.83-1.16) 08/06/18 01:10 - Physical Exam Constitutional: no apparent distress Eyes: PERRL Ears, Nose, Mouth, Throat: moist mucous membranes Cardiovascular: regular rate and rhythym Respiratory: no respiratory distress Gastrointestinal: tenderness (mild epigastric) Musculoskeletal: full muscle strength Neurologic: AAOx3 Psychiatric: not encephalopathic, flat affect, poor insight ICD10 Worksheet Patient Problems: Problems Problem Status Onset Common bile duct mass Acute Alcohol dependence Acute Alcoholic intoxication Acute Dehydration Acute Delirium tremens Acute Head injury Acute Heroin abuse Acute Hypokalemia Acute Hypomagnesemia Acute Pneumonia Acute Respiratory failure Acute Seizure Acute
--- NOTE | 2018-08-08 09:43 | PDINTPN ---
Traffic Assistant Progress Note Assessment/Plan: Assessment/plan: * Abdominal pain-improved * Gallstone * Polysubstance abuse * Alcoholism * Bipolar disorder * PTSD * Disposition-okay for transfer to the medical-surgical floor Subjective: Resting comfortably. No current complaints. Objective: Vital Signs Temp Pulse Resp BP Pulse Ox 36.5 C 82 18 95/63 L 92 08/08/18 08:00 08/08/18 08:00 08/08/18 08:00 08/08/18 08:00 08/08/18 08:00 Laboratory Results 08/08/18 04:00 08/07/18 08/08/18 08/09/18 05:59 05:59 05:59 Intake Total 2332 Balance 2332 PT 12.3 SEC (12.0-15.0) 08/06/18 01:10 INR 0.89 (0.83-1.16) 08/06/18 01:10 - Time Spent With Patient Time Spent With Patient: 25 min of time spent with patient, over 1/2 involved with coordination of care or counseling. Physical Exam - Physical Exam General Appearance: alert, no apparent distress EENT: PERRL/EOMI Neck: non-tender Respiratory: chest non-tender, lungs clear, normal breath sounds Cardiac/Chest: normal peripheral pulses, regular rate, rhythm Peripheral Pulses: 2+: carotid (R), carotid (L), femoral (R), femoral (L), dorsalis-pedis (R), dorsalis-pedis (L) Abdomen: normal bowel sounds, soft, No non-tender Male Genitalia: deferred Rectal: deferred Extremities: non-tender Neuro/Psych: alert ICD10 Worksheet Patient Problems: Problems Problem Status Onset Common bile duct mass Acute Alcohol dependence Acute Alcoholic intoxication Acute Dehydration Acute Delirium tremens Acute Head injury Acute Heroin abuse Acute Hypokalemia Acute Hypomagnesemia Acute Pneumonia Acute Respiratory failure Acute Seizure Acute
--- NOTE | 2018-08-08 11:14 | HOSPPROG ---
Hospitalist Progress Note Assessment/Plan: #CBD mass: MRCP with CBD stone. Plan for ERCP tomorrow #Polysubstance abuse: counseled on cessation. Last drink > 5 days ago -resume Suboxone #h/o endocarditis: long hospitalization at [facility] a few months ago #Acute metabolic encephalopathy: resolved. MS clear today. Does not appear to be withdrawing form Etoh #h/o TBI: cog eval #Mild hyponatremia: resolved #Diet: clears Disp: inpatient admission for ERCP. Case d/w Dr. Barclay Subjective: still with epigastric pain Objective: Vital Signs Temp Pulse Resp BP Pulse Ox 36.5 C 82 18 95/63 L 92 08/08/18 08:00 08/08/18 08:00 08/08/18 08:00 08/08/18 08:00 08/08/18 08:00 Laboratory Results 08/08/18 04:00 08/07/18 08/08/18 08/09/18 05:59 05:59 05:59 Intake Total 2332 Balance 2332 PT 12.3 SEC (12.0-15.0) 08/06/18 01:10 INR 0.89 (0.83-1.16) 08/06/18 01:10 - Time Spent With Patient Time Spent with Patient: greater than 35 minutes Time Spent with Patient: Greater than 35 minutes spent on this patients care, greater than 50% of time spent counseling, educating, and coordinating care regarding the above mentioned plan. - Physical Exam Constitutional: no apparent distress Eyes: PERRL Ears, Nose, Mouth, Throat: moist mucous membranes Cardiovascular: regular rate and rhythym Respiratory: no respiratory distress Gastrointestinal: normoactive bowel sounds, tenderness (mild epigastric pain) Genitourinary: No gary in urethra Skin: warm Musculoskeletal: full muscle strength Neurologic: AAOx3, CN II-XII Intact Psychiatric: interacting appropriately ICD10 Worksheet Patient Problems: Problems Problem Status Onset Common bile duct mass Acute Alcohol dependence Acute Alcoholic intoxication Acute Dehydration Acute Delirium tremens Acute Head injury Acute Heroin abuse Acute Hypokalemia Acute Hypomagnesemia Acute Pneumonia Acute Respiratory failure Acute Seizure Acute
--- NOTE | 2018-08-08 11:36 | SOAPPROG ---
SOAP Progress Note Assessment/Plan: Assessment: 1. RUQ pain 2. Elevated LFTs 3. MS changes (improved) 4. ETOH and substance abuse 5. Choledocholithiasis Plan: 1. ERCP tomorrow 1 PM 2. NPO after midnight. Regular diet today is fine 3. AM LFTs, PT/INR, Lipase, CBC 08/08/18 11:26 08/08/18 11:42 Subjective: CC: RUQ pain Mentally improved with re-intiation Objective: Vital Signs Temp Pulse Resp BP Pulse Ox 36.5 C 82 18 95/63 L 92 08/08/18 08:00 08/08/18 08:00 08/08/18 08:00 08/08/18 08:00 08/08/18 08:00 Laboratory Results 08/08/18 04:00 08/07/18 08/08/18 08/09/18 05:59 05:59 05:59 Intake Total 2332 Balance 2332 PT 12.3 SEC (12.0-15.0) 08/06/18 01:10 INR 0.89 (0.83-1.16) 08/06/18 01:10 Physical Exam - Physical Exam General Appearance: no apparent distress EENT: pharynx normal, No scleral icterus (R), No scleral icterus (L) Neck: supple Respiratory: lungs clear Cardiac/Chest: regular rate, rhythm Abdomen: soft, other (TTP generalized but also more tender RUQ), No distended, No guarding, No rebound Skin: No jaundice Neuro/Psych: alert, oriented x 3 ICD10 Worksheet Patient Problems: Problems Problem Status Onset Common bile duct mass Acute Alcohol dependence Acute Alcoholic intoxication Acute Dehydration Acute Delirium tremens Acute Head injury Acute Heroin abuse Acute Hypokalemia Acute Hypomagnesemia Acute Pneumonia Acute Respiratory failure Acute Seizure Acute
[2018-08-08] MEDS: traZODone 100 MG TAB PO SCH (21:50)
[2018-08-09] MEDS: oxyCODONE IR 5 MG TAB PO PRN ×3 (02:25→18:25)
[2018-08-09] MEDS: THIAMINE HCL 100 MG TAB PO SCH ×2 (02:26→08:48)
[2018-08-09] MEDS: GABAPENTIN 300 MG CAP PO SCH ×4 (05:32→20:55)
[2018-08-09 05:56] LABS: INR 0.9 (0.83-1.16); PROTIME(PATIENT) 12.4 SEC (12.0-15.0)
[2018-08-09] MEDS: FAMOTIDINE 20 MG TAB PO SCH ×2 (08:48→20:55)
[2018-08-09] MEDS: NICOTINE 14 MG/24 HR PATCH TD SCH (08:48)
[2018-08-09] MEDS: QUEtiapine FUMARATE 200 MG TAB PO SCH ×2 (08:48→20:56)
[2018-08-09] MEDS: MULTIVITAMINS 1 EACH TAB PO SCH (08:48)
[2018-08-09] MEDS: SENNOSIDES/DOCUSATE SODIUM TAB PO SCH ×2 (08:48→20:55)
--- NOTE | 2018-08-09 09:03 | HOSPPROG ---
Hospitalist Progress Note Assessment/Plan: #CBD mass: MRCP with CBD stone. ERCP today #Polysubstance abuse: counseled on cessation. Last drink > 5 days ago -Suboxone #h/o endocarditis: long hospitalization at [facility] a few months ago #Acute metabolic encephalopathy: yesterday. MS clear today. Does not appear to be withdrawing form Etoh #h/o TBI: cog eval done on when MS altered. Rec repeating eval #Mild hyponatremia: resolved #Diet: clears Disp: inpatient admission for further imaging possible ERCP Subjective: still with mild epigastric pain. BM yesterday Objective: Vital Signs Temp Pulse Resp BP Pulse Ox 36.5 C 98 12 99/69 L 93 08/09/18 08:00 08/09/18 08:00 08/09/18 08:00 08/09/18 08:00 08/09/18 08:00 Laboratory Results 08/09/18 05:35 08/09/18 05:35 08/08/18 08/09/18 08/10/18 05:59 05:59 05:59 Intake Total 2332 Balance 2332 PT 12.4 SEC (12.0-15.0) 08/09/18 05:35 INR 0.90 (0.83-1.16) 08/09/18 05:35 - Time Spent With Patient Time Spent with Patient: greater than 35 minutes Time Spent with Patient: Greater than 35 minutes spent on this patients care, greater than 50% of time spent counseling, educating, and coordinating care regarding the above mentioned plan. ICD10 Worksheet Patient Problems: Problems Problem Status Onset Common bile duct mass Acute Alcohol dependence Acute Alcoholic intoxication Acute Dehydration Acute Delirium tremens Acute Head injury Acute Heroin abuse Acute Hypokalemia Acute Hypomagnesemia Acute Pneumonia Acute Respiratory failure Acute Seizure Acute
[2018-08-09] MEDS ORDERED: INDOMETHACIN 50 MG SUPP PR ONE ×2 (11:21→11:25)
[2018-08-09] MEDS ORDERED: levOFLOXACIN 500 MG/DEXTROSE 100 ML IV ONE (11:22)
[2018-08-09] MEDS ORDERED: GLUCAGON HCL 1 MG VIAL ONE (11:24)
[2018-08-09] MEDS ORDERED: IOTHALAMATE MEG (CONRAY) 50 ML VIAL IV ONE (11:24)
[2018-08-09] MEDS ORDERED: LIDOCAINE 1% 2 ML INJ ID PRN (11:25)
[2018-08-09] MEDS ORDERED: LR 1,000 ML IV ONE (11:25)
[2018-08-09] MEDS ORDERED: levOFLOXACIN 500 MG/DEXTROSE/100 ML BAG IV ONE (11:34)
--- NOTE | 2018-08-09 11:40 | PDANEPAE ---
ANE History of Present Illness CBD stone ANE Past Medical History - Cardiovascular History Hx Hypertension: No Hx Arrhythmias: No - Pulmonary History Hx COPD: No Hx Asthma/Reactive Airway Disease: No Hx Oxygen in Use at Home: No Hx Sleep Apnea: Yes Sleep Apnea Screening Result - Last Documented: Positive - Endocrine History Hx Diabetes: No ANE Review of Systems Review of Systems: ANE Patient History - Allergies Allergies/Adverse Reactions: No Known Allergies Allergy (Verified 08/06/18 00:56) - Home Medications Home medications: home medication list seen and reviewed Home Medications: Buprenorphine HCl/Naloxone HCl [Suboxone 8 mg-2 mg Sl Film] 1 each SL DAILY 08/07 [Last Taken Unknown] QUEtiapine FUMARATE [Seroquel 200 mg (*)] 200 - 400 mg PO DAILY 08/01/18 [Last Taken Unknown] traZODone [traZODONE 100MG (*)] 200 mg PO HS 08/01/18 [Last Taken Unknown] Gabapentin [Neurontin 300 MG (*)] 300 mg PO QID 08/06/18 [Last Taken Unknown] Herbals/Supplements -Info Only 1 ea PO DAILY 08/06/18 [Last Taken Unknown] Multivitamins [Multivitamin (*)] 1 each PO DAILY 08/06/18 [Last Taken Unknown] - NPO status NPO Status: no food or drink >8 hours (Jello and black coffee 08:00) NPO Since - Liquids (Date): 08/09/18 NPO Since - Liquids (Time): 07:00 NPO Since - Solids (Date): 08/09/18 NPO Since - Solids (Time): 07:00 - Smoking Hx Smoking Status: Current every day smoker - Alcohol Use Alcohol Use: Sober (Five days previously heavy use of liquor.) ANE Labs/Vital Signs - Labs Result Diagrams: 08/09/18 05:35 08/09/18 05:35 - Vital Signs Blood Pressure: 99/69 Heart Rate: 98 Respiratory Rate: 12 O2 Sat (%): 93 Height: 172.72 cm Weight: 58.06 kg ANE Physical Exam - Airway Neck exam: decreased ROM Mallampati Score: Class 2 Mouth exam: poor dentition - Pulmonary Pulmonary: no respiratory distress - Cardiovascular Cardiovascular: regular rate and rhythym - ASA Status ASA Status: III ANE Anesthesia Plan Anesthesia Plan: general endotracheal anesthesia
[2018-08-09] MEDS ORDERED: fentaNYL 100 MCG/2 ML INJ ONE (11:51)
[2018-08-09] MEDS ORDERED: ROCURONIUM 50 MG/5 ML VIAL ONE (11:51)
[2018-08-09] MEDS ORDERED: PROPOFOL 200 MG/20 ML VIAL ONE (11:51)
[2018-08-09] MEDS ORDERED: NALOXONE HCL 0.4 MG/ML INJ IVP PRN (12:14)
[2018-08-09] MEDS ORDERED: ONDANSETRON 4 MG/2 ML VIAL IVP PRN (12:14)
[2018-08-09] MEDS ORDERED: fentaNYL 100 MCG/2 ML INJ IVP PRN (12:14)
--- NOTE | 2018-08-09 13:00 | POSTANESTH ---
Post Anesthetic Evaluation Cardiovascular Status: Similar to Pre-Op Cond Respiratory Status: Similar to Pre-op Cond. Level of Consciousness/Mental Status: Alert and Oriented Pain Control: Adequate, Prn Tx Ordered Nausea/Vomiting Control: Adequate, Prn Tx Ordered Complications Possibly Related to Anesthesia: None Noted
--- NOTE | 2018-08-09 13:38 | GIREPORT ---
[facility] Surgical Services - Endoscopy Department Patient Name: Pepe Stanton Procedure Date: 08/09/2018 11:26 AM Patient Type: Inpatient Attending MD/ ER Physician: Juan Barclay MD Procedure: ERCP Indications: Bile duct stone on magnetic resonance cholangiopancreatography, Suspect ed bile duct stone(s) Providers: Juan Barclay MD Medicines: General Anesthesia Complications: No immediate complications. Description of Procedure: After obtaining informed consent, the scope was passed under direct vis ion. Throughout the procedure, the patient's blood pressure, pulse, and oxyg en saturations were monitored continuously. The Duodenalscope was introduc ed through the mouth, and advanced to the duodenum without successful cannulation. The ERCP was unusually difficult due to abnormal anatomy a nd challenging cannulation because of inability to visualize the major pap illa. The patient tolerated the procedure well. The total duration of the procedure was 35 minutes. The [id number] Endosonoscope was then utilized t o better define his anatomy and investigate the duodenal diverticula in a n effort to locate the major papilla. It was introduced through the mouth , and advanced to the 3rd portion of the duodenum without successful identification of the major papilla. Findings: The stomach was markedly J-shaped and full of solid food. The side view ing endoscope was ultimately advanced into the 3rd portion of the duodenum successfully. There was a larger diverticula in the 2nd portion of the duodenum. There was also irregular folds downstream of the diverticula. Both of these areas were inspected extensively, probing with the sphincterot ome and even using a forward viewing endoscope to completely interrogate th e diverticula. No major papilla was able to be identified. The procedure was aborted. OTHER Estimated Blood Loss: Estimated blood loss: none. Post Op Diagnosis: J-shaped stomach with retained food. This likely represent gastroparesi s due to chronic pain medications. Larger dudoenal diverticula in the 2nd portion of the duodenum. Irregular dudodenal folds with signficant fold redundancy. Non-visualization of the major papillae. Aborted ERCP due to this latter technical limitation. - A large amount of food (residue) in the stomach. Recommendation: - Return patient to hospital [facility] for ongoing care. - Clear liquid diet today. - NPO after midnight. - IR to place percutaneous biliary wire tomorrow for ERCP at 15:30 on 08/10/18 for reattempt at stone extraction. - Patient aware - Thank you for allowing me to be involved in the care of your patient. Attending Participation: I personally performed the entire procedure without the assistance of a fellow, resident or surg ical casting assistant. Juan Barclay MD Juan Barclay MD 08/09/2018 1:38:06 PM This report has been signed electronicallyDavid MD Ning Number of Addenda: 0 Note Initiated On: 08/09/2018 11:26 AM [email or web address]
[2018-08-09] MEDS: LORazepam 1 MG TAB PO PRN (18:23)
[2018-08-09] MEDS: traZODone 100 MG TAB PO SCH (20:55)
[2018-08-10] MEDS: GABAPENTIN 300 MG CAP PO SCH ×4 (05:31→21:46)
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
[2018-08-10] MEDS: FAMOTIDINE 20 MG TAB PO SCH ×2 (09:02→21:46)
[2018-08-10] MEDS: MULTIVITAMINS 1 EACH TAB PO SCH (09:02)
[2018-08-10] MEDS: NICOTINE 14 MG/24 HR PATCH TD SCH (09:03)
[2018-08-10] MEDS: QUEtiapine FUMARATE 200 MG TAB PO SCH ×2 (09:03→21:46)
[2018-08-10] MEDS: THIAMINE HCL 100 MG TAB PO SCH (09:04)
[2018-08-10] MEDS: oxyCODONE IR 5 MG TAB PO PRN ×3 (09:04→19:27)
[2018-08-10] MEDS: SENNOSIDES/DOCUSATE SODIUM TAB PO SCH ×2 (09:04→21:46)
[2018-08-10] MEDS: LORazepam 1 MG TAB PO PRN (09:05)
[2018-08-10] MEDS: METHOCARBAMOL 750 MG TAB PO PRN (09:42)
[2018-08-10] MEDS ORDERED: D5W NS 1,000 ML IV SCH (09:45)
[2018-08-10] MEDS ORDERED: IOTHALAMATE MEG (CONRAY) 50 ML VIAL IV ONE (15:10)
[2018-08-10] MEDS ORDERED: GLUCAGON HCL 1 MG VIAL ONE (15:10)
[2018-08-10] MEDS ORDERED: fentaNYL 100 MCG/2 ML INJ IVP PRN (15:29)
[2018-08-10] MEDS ORDERED: MIDAZOLAM 2 MG/2 ML VIAL IVP PRN (15:29)
[2018-08-10] MEDS ORDERED: NS 1,000 ML IV SCH (15:30)
--- NOTE | 2018-08-10 16:30 | PDANEPAE ---
ANE History of Present Illness 58 yo male with biliary stones. ANE Past Medical History - Cardiovascular History Hx Hypertension: No Hx Arrhythmias: Yes Hx Chest Pain: No Hx Coronary Artery / Peripheral Vascular Disease: No Cardiovascular History Comment: irregular heart beat on propranolol until a few yrs ago when pt stopped taking it. - Pulmonary History Hx COPD: No Hx Asthma/Reactive Airway Disease: No Hx Oxygen in Use at Home: No Hx Sleep Apnea: No Sleep Apnea Screening Result - Last Documented: Positive Pulmonary History Comment: Pt denies any MARC, but does report insomnia. - Endocrine History Hx Diabetes: No - Renal History Hx Renal Disorders: No - Liver History Hx Hepatic Disorders: Yes Hepatic History Comment: hepatitis C - Neurological & Psychiatric Hx Hx Neurological and Psychiatric Disorders: Yes Neurological / Psychiatric History Comment: bipolar d/o, h/o heroine use - Cancer History Hx Cancer: No - GI History Hx Gastrointestinal Disorders: No ANE Review of Systems Review of Systems: - Systems Gastrointestinal: Reports: abdominal pain Muscolosketal: Reports: neck pain ANE Patient History - Allergies Allergies/Adverse Reactions: No Known Allergies Allergy (Verified 08/06/18 00:56) - Home Medications Home Medications: Buprenorphine HCl/Naloxone HCl [Suboxone 8 mg-2 mg Sl Film] 1 each SL DAILY 08/07 [Last Taken Unknown] QUEtiapine FUMARATE [Seroquel 200 mg (*)] 200 - 400 mg PO DAILY 08/01/18 [Last Taken Unknown] traZODone [traZODONE 100MG (*)] 200 mg PO HS 08/01/18 [Last Taken Unknown] Gabapentin [Neurontin 300 MG (*)] 300 mg PO QID 08/06/18 [Last Taken Unknown] Herbals/Supplements -Info Only 1 ea PO DAILY 08/06/18 [Last Taken Unknown] Multivitamins [Multivitamin (*)] 1 each PO DAILY 08/06/18 [Last Taken Unknown] - NPO status NPO Since - Liquids (Date): 08/09/18 NPO Since - Liquids (Time): 07:00 NPO Since - Solids (Date): 08/09/18 NPO Since - Solids (Time): 07:00 - Anes Hx Anes Hx: no prior problems - Smoking Hx Smoking Status: Current every day smoker - Alcohol Use Alcohol Use: Heavy (Five days previously heavy use of liquor. Drinks 1 pint of hard liquor daily.) ANE Labs/Vital Signs - Labs Result Diagrams: 08/09/18 05:35 08/09/18 05:35 - Vital Signs Blood Pressure: 103/76 Heart Rate: 72 Respiratory Rate: 16 O2 Sat (%): 97 Height: 172.72 cm Weight: 58.06 kg ANE Physical Exam - Airway Neck exam: decreased ROM Mallampati Score: Class 3 Mouth exam: poor dentition - Pulmonary Pulmonary: reduced air movement, expiratory wheeze, rhonchi - Cardiovascular Cardiovascular: regular rate and rhythym - ASA Status ASA Status: IV ANE Anesthesia Plan Anesthesia Plan: general endotracheal anesthesia
[2018-08-10] MEDS ORDERED: IPRATROPIUM/ALBUTEROL 3 ML DEYVIAL ONE (16:37)
[2018-08-10] MEDS ORDERED: IPRATROPIUM/ALBUTEROL 3 ML DEYVIAL IH ONE (16:40)
[2018-08-10] MEDS: traZODone 100 MG TAB PO SCH (21:46)
[2018-08-11] MEDS: GABAPENTIN 300 MG CAP PO SCH ×4 (06:39→21:30)
[2018-08-11] MEDS ORDERED: LIDOCAINE 2% 100 MG/5 ML SYR ONE (09:27)
[2018-08-11] MEDS ORDERED: fentaNYL 100 MCG/2 ML INJ ONE (09:27)
[2018-08-11] MEDS ORDERED: PROPOFOL/EMULSION 500 MG/50 ML BOTTLE IV ONE ×2 (09:27→10:45)
[2018-08-11] MEDS ORDERED: PHENYLEPHRINE HCL 100 MCG/ML SYR ONE (09:56)
[2018-08-11] MEDS ORDERED: RANITIDINE 50 MG/2 ML VIAL ONE (09:56)
[2018-08-11] MEDS ORDERED: METOCLOPRAMIDE 10 MG/2 ML VIAL ONE (09:57)
[2018-08-11] MEDS ORDERED: IOTHALAMATE MEG (CONRAY) 50 ML VIAL IV ONE (10:45)
[2018-08-11] MEDS ORDERED: ALBUTEROL 3 ML DEYVIAL IH PRN (11:12)
[2018-08-11] MEDS ORDERED: fentaNYL 100 MCG/2 ML INJ IVP PRN (11:12)
--- NOTE | 2018-08-11 11:12 | PDANEPAE ---
ANE Past Medical History - Cardiovascular History Hx Hypertension: No Hx Arrhythmias: Yes Hx Chest Pain: No Hx Coronary Artery / Peripheral Vascular Disease: No Cardiovascular History Comment: irregular heart beat on propranolol until a few yrs ago when pt stopped taking it. - Pulmonary History Hx COPD: No Hx Asthma/Reactive Airway Disease: No Hx Oxygen in Use at Home: No Hx Sleep Apnea: Yes Sleep Apnea Screening Result - Last Documented: Positive Pulmonary History Comment: Pt denies any MARC, but does report insomnia. - Endocrine History Hx Diabetes: No - Renal History Hx Renal Disorders: No - Liver History Hx Hepatic Disorders: Yes Hepatic History Comment: hepatitis C - Neurological & Psychiatric Hx Hx Neurological and Psychiatric Disorders: Yes Neurological / Psychiatric History Comment: bipolar d/o, h/o heroine use - Cancer History Hx Cancer: No - GI History Hx Gastrointestinal Disorders: No ANE Review of Systems Review of Systems: ANE Patient History - Allergies Allergies/Adverse Reactions: No Known Allergies Allergy (Verified 08/06/18 00:56) - Home Medications Home Medications: Buprenorphine HCl/Naloxone HCl [Suboxone 8 mg-2 mg Sl Film] 1 each SL DAILY 08/07 [Last Taken Unknown] QUEtiapine FUMARATE [Seroquel 200 mg (*)] 200 - 400 mg PO DAILY 08/01/18 [Last Taken Unknown] traZODone [traZODONE 100MG (*)] 200 mg PO HS 08/01/18 [Last Taken Unknown] Gabapentin [Neurontin 300 MG (*)] 300 mg PO QID 08/06/18 [Last Taken Unknown] Herbals/Supplements -Info Only 1 ea PO DAILY 08/06/18 [Last Taken Unknown] Multivitamins [Multivitamin (*)] 1 each PO DAILY 08/06/18 [Last Taken Unknown] - NPO status NPO Since - Liquids (Date): 08/11/18 NPO Since - Liquids (Time): 00:00 NPO Since - Solids (Date): 08/11/18 NPO Since - Solids (Time): 00:00 - Smoking Hx Smoking Status: Current every day smoker - Alcohol Use Alcohol Use: Heavy (Five days previously heavy use of liquor. Drinks 1 pint of hard liquor daily.) ANE Labs/Vital Signs - Labs Result Diagrams: 08/09/18 05:35 08/09/18 05:35 - Vital Signs Blood Pressure: 113/78 Heart Rate: 104 Respiratory Rate: 12 O2 Sat (%): 91 Height: 172.72 cm Weight: 58.06 kg ANE Physical Exam - Airway Neck exam: FROM Mallampati Score: Class 2 Mouth exam: poor dentition - Pulmonary Pulmonary: no respiratory distress - Cardiovascular Cardiovascular: regular rate and rhythym - ASA Status ASA Status: III ANE Anesthesia Plan Anesthesia Plan: general endotracheal anesthesia
[2018-08-11] MEDS ORDERED: LIDOCAINE 1% 300 MG/30 ML SDV ONE (11:16)
[2018-08-11] MEDS ORDERED: BUPIVACAINE 0.5% 30 ML SDV ONE (11:16)
[2018-08-11] MEDS ORDERED: IOPAMIDOL (ISOVUE-300) 100 ML BTL ONE (11:16)
[2018-08-11] MEDS ORDERED: GLYCOPYRROLATE 0.2 MG/1 ML VIAL ONE ×2 (12:41)
[2018-08-11] MEDS ORDERED: NEOSTIGMINE METHYLSULFATE 5 MG/5 ML SYR ONE (12:41)
[2018-08-11] MEDS ORDERED: BACITRACIN ZINC 0.5 OZ OINTTUBE TP ONE (12:56)
[2018-08-11] MEDS ORDERED: INDOMETHACIN 50 MG SUPP PR ONE (12:58)
[2018-08-11] MEDS ORDERED: AMPICILLIN/SULBACTAM 3 GM in NS 100 ML IV ONE (13:10)
[2018-08-11] MEDS: KETOROLAC 30 MG/1 ML SDV IVP PRN (14:19)
[2018-08-11] MEDS ORDERED: HALOPERIDOL LACT 5 MG/ML INJ IVP PRN (14:22)
[2018-08-11] MEDS: NICOTINE 14 MG/24 HR PATCH TD SCH (14:25)
[2018-08-11] MEDS: QUEtiapine FUMARATE 200 MG TAB PO SCH (14:26)
[2018-08-11] MEDS: THIAMINE HCL 100 MG TAB PO SCH (14:45)
[2018-08-11] MEDS: FAMOTIDINE 20 MG TAB PO SCH (14:45)
[2018-08-11] MEDS: SENNOSIDES/DOCUSATE SODIUM TAB PO SCH ×2 (14:45→21:30)
[2018-08-11] MEDS: oxyCODONE IR 5 MG TAB PO PRN ×2 (16:18→21:29)
--- NOTE | 2018-08-11 16:58 | ASMTCMCOM ---
CM Note CM Note Notes: Spoke with pt's RN and reviewed chart. Pt is homeless and struggles with mental health and substance abuse. Pt is easily agitated and was too agitated after MRCP today to speak with CM. [facility] resources [facility] Pt will likely need half-way bed and transportation upon discharge. [facility] CM to follow. D/C Plan: Longterm bed Date Signed: 08/11/2018 04:58 PM Electronically Signed By:Paige Spann
--- NOTE | 2018-08-11 17:31 | HOSPPROG ---
Hospitalist Progress Note Assessment/Plan: * Retained CBD stone s/p failed ERCP -s/p IR transhepatic guided wire with successful repeat ERCP -recheck LFT/lipase in am * Toxic/metabolic encephalopathy -extreme confusion today post anesthesia -tried to leave but did not have decisional capacity to do so -now improved - ? extreme anesthesia reaction * Gastroparesis -due to narcotics * Recent endocarditis * h/o TBI with cognitive dysfunction * Heroin abuse -Suboxone * Etoh abuse -no further evidence for withdrawal * Bipolar/PTSD -seroquel + trazodone * Tobacco dependence -patch * Hep C -check HIV Subjective: Very agitated and confused after procedure today Objective: Vital Signs Temp Pulse Resp BP Pulse Ox 36.9 C 102 H 18 92/60 L 96 08/11/18 17:16 08/11/18 17:16 08/11/18 17:16 08/11/18 17:16 08/11/18 17:16 Laboratory Results 08/09/18 05:35 08/09/18 05:35 08/10/18 08/11/18 08/12/18 05:59 05:59 05:59 Intake Total 600 0 700 Output Total 500 0 Balance 100 0 700 PT 12.4 SEC (12.0-15.0) 08/09/18 05:35 INR 0.90 (0.83-1.16) 08/09/18 05:35 MRCP - distal CBD stone 11mm EKG viewed, my personal interpretation is - NSR, no ischemic change - Physical Exam Constitutional: appears nourished, not in pain, unkempt, No no apparent distress Cardiovascular: regular rate and rhythym, no murmur, rub, or gallop Respiratory: no respiratory distress, no rales or rhonchi, clear to auscultation Gastrointestinal: normoactive bowel sounds, soft, non-tender abdomen, no palpable masses Skin: no rashes or abrasions, no fluctuance, no induration Neurologic: No AAOx3 Psychiatric: encephalopathic, agitated, poor insight, poor judgement, poor memory, No interacting appropriately, No thought process linear ICD10 Worksheet Patient Problems: Problems Problem Status Onset Alcohol dependence Acute Heroin abuse Acute Alcoholic intoxication Acute Head injury Acute Pneumonia Acute Hypomagnesemia Acute Hypokalemia Acute Dehydration Acute Respiratory failure Acute Delirium tremens Acute Seizure Acute Common bile duct mass Acute
[2018-08-11] MEDS: LORazepam 0.5 MG TAB PO PRN (17:48)
[2018-08-11] MEDS: traZODone 100 MG TAB PO SCH (21:29)
[2018-08-12] MEDS: ACETAMINOPHEN 325 MG TAB PO PRN (05:20)
[2018-08-12] MEDS: GABAPENTIN 300 MG CAP PO SCH ×4 (05:21→20:10)
[2018-08-12] MEDS: oxyCODONE IR 5 MG TAB PO PRN (05:21)
[2018-08-12] MEDS ORDERED: NS 1,000 ML IV ONE ×3 (05:45→23:35)
--- NOTE | 2018-08-12 05:45 | HOSPPROG ---
Hospitalist Progress Note Assessment/Plan: XC: Patient febrile (39.2) and tachycardic this morning. No symptoms aside from confusion after ERCP. He received dose of Unasyn after procedure. I will obtain blood cultures, lactate, and CBC. I will give 1 L NS and also start Zosyn noting recent manipulation of biliary tree. Objective: Vital Signs Temp Pulse Resp BP Pulse Ox 39.2 C H 116 H 20 97/69 L 92 08/12/18 04:00 08/12/18 04:00 08/12/18 04:00 08/12/18 04:00 08/12/18 04:00 Laboratory Results 08/09/18 05:35 08/09/18 05:35 08/10/18 08/11/18 08/12/18 05:59 05:59 05:59 Intake Total 600 0 1400 Output Total 500 0 Balance 100 0 1400 PT 12.4 SEC (12.0-15.0) 08/09/18 05:35 INR 0.90 (0.83-1.16) 08/09/18 05:35 ICD10 Worksheet Patient Problems: Problems Problem Status Onset Alcohol dependence Acute Heroin abuse Acute Alcoholic intoxication Acute Head injury Acute Pneumonia Acute Hypomagnesemia Acute Hypokalemia Acute Dehydration Acute Respiratory failure Acute Delirium tremens Acute Seizure Acute Common bile duct mass Acute
[2018-08-12] MEDS: PIPERACILLIN/TAZO 3.375 GM/DEX 50 ML IV SCH ×3 (06:32→17:34)
[2018-08-12 06:55] LABS: PLATELET COUNT 133 10^3/uL (150-400)
[2018-08-12] MEDS: QUEtiapine FUMARATE 200 MG TAB PO SCH (10:05)
[2018-08-12] MEDS: SENNOSIDES/DOCUSATE SODIUM TAB PO SCH ×2 (10:06→20:10)
[2018-08-12] MEDS: THIAMINE HCL 100 MG TAB PO SCH (10:06)
[2018-08-12] MEDS: NICOTINE 14 MG/24 HR PATCH TD SCH (10:10)
--- NOTE | 2018-08-12 12:51 | SOAPPROG ---
SOAP Progress Note Assessment/Plan: Assessment/Plan: 1. Pt. states less pain today, but somewhat lethargic, so difficult historian. TB and alk phos increased, but suspect due to edema from stone removal yesterday only. Lipase in the 700s is expected after ERCP, and doubt significant. - recheck LFTs, lipase in AM 2. Fever. Suspect from I.R. and ERCP manipulations yesterday. An ongoing infectious process is possible, but somewhat less likely. Afeb now, but decreased SBP. - IV fluids - agree with piperacillin 08/12/18 12:48 Subjective: cc: cbd stone States less abdominal pain that on admission, but somewhat lethargic. Did spike a fever; afeb now, but SBP somewhat low. Denies vomiting, rigors, sweats. Tolerating po well. Objective: Vital Signs Temp Pulse Resp BP Pulse Ox 37.1 C 82 18 67/56 L 94 08/12/18 11:44 08/12/18 11:44 08/12/18 11:44 08/12/18 11:44 08/12/18 11:44 Laboratory Results 08/12/18 06:10 08/12/18 06:10 08/11/18 08/12/18 08/13/18 05:59 05:59 05:59 Intake Total 0 2066 Output Total 350 Balance 0 1716 PT 12.4 SEC (12.0-15.0) 08/09/18 05:35 INR 0.90 (0.83-1.16) 08/09/18 05:35 Physical Exam - Physical Exam General Appearance: WD/WN, No alert (lethargic) EENT: PERRL/EOMI, normal ENT inspection, pharynx normal, TMs normal Neck: non-tender, full range of motion, supple, normal inspection Respiratory: chest non-tender, lungs clear, normal breath sounds Cardiac/Chest: normal peripheral pulses, regular rate, rhythm Peripheral Pulses: 2+: carotid (R), carotid (L), femoral (R), femoral (L), dorsalis-pedis (R), dorsalis-pedis (L) Abdomen: soft, No non-tender (mild RUQ tenderness) Male Genitalia: deferred Rectal: deferred Back: Normal inspection Skin: normal color, warm/dry Lymphatic: no adenopathy Extremities: normal range of motion, non-tender, normal inspection, normal capillary refill Neuro/Psych: no motor/sensory deficits, alert, normal mood/affect, oriented x 3 ICD10 Worksheet Patient Problems: Problems Problem Status Onset Common bile duct mass Acute Alcohol dependence Acute Alcoholic intoxication Acute Dehydration Acute Delirium tremens Acute Head injury Acute Heroin abuse Acute Hypokalemia Acute Hypomagnesemia Acute Pneumonia Acute Respiratory failure Acute Seizure Acute
[2018-08-12] MEDS: D5W NS W/ 20 KCl/L 1,000 ML IV SCH (13:36)
--- NOTE | 2018-08-12 15:12 | HOSPPROG ---
Hospitalist Progress Note Assessment/Plan: * Retained CBD stone s/p failed ERCP -s/p IR transhepatic guided wire with successful repeat ERCP -LFT/lipase up a bit, but not more than anticipated for difficult procedure -recheck am * Toxic/metabolic encephalopathy due to anesthesia + infection -remains very confused today * Fever - suspect due to difficult manipulation of biliary tree -empiric IV Zosyn * Hypotension - responding to IVF bolus -suspect dehydration + infection * Gastroparesis -due to narcotics * Recent endocarditis * h/o TBI with cognitive dysfunction * Heroin abuse -Suboxone * Etoh abuse -no further evidence for withdrawal * Bipolar/PTSD -seroquel + trazodone * Tobacco dependence -patch * Hep C -check HIV High risk due to frequent low BP throughout day today requiring frequent repeat IVF bolus Subjective: talking about missing his guitar and amp Objective: Vital Signs Temp Pulse Resp BP Pulse Ox 37.1 C 82 18 90/63 L 86 L 08/12/18 11:44 08/12/18 11:44 08/12/18 11:44 08/12/18 13:39 08/12/18 14:59 Laboratory Results 08/12/18 06:10 08/12/18 06:10 08/11/18 08/12/18 08/13/18 05:59 05:59 05:59 Intake Total 0 2066 Output Total 350 Balance 0 1716 PT 12.4 SEC (12.0-15.0) 08/09/18 05:35 INR 0.90 (0.83-1.16) 08/09/18 05:35 - Time Spent With Patient Time Spent with Patient: greater than 35 minutes Time Spent with Patient: Greater than 35 minutes spent on this patients care, greater than 50% of time spent counseling, educating, and coordinating care regarding the above mentioned plan. - Physical Exam Constitutional: no apparent distress, appears nourished, not in pain Cardiovascular: regular rate and rhythym, no murmur, rub, or gallop Respiratory: no respiratory distress, no rales or rhonchi, clear to auscultation Gastrointestinal: normoactive bowel sounds, soft, non-tender abdomen, no palpable masses Skin: no rashes or abrasions, no fluctuance, no induration Neurologic: No AAOx3 Psychiatric: encephalopathic, poor insight, poor judgement, poor memory, No interacting appropriately, No thought process linear, No agitated ICD10 Worksheet Patient Problems: Problems Problem Status Onset Common bile duct mass Acute Alcohol dependence Acute Alcoholic intoxication Acute Dehydration Acute Delirium tremens Acute Head injury Acute Heroin abuse Acute Hypokalemia Acute Hypomagnesemia Acute Pneumonia Acute Respiratory failure Acute Seizure Acute
[2018-08-12] MEDS ORDERED: NS 500 ML IV ONE ×2 (17:30→18:03)
--- NOTE | 2018-08-12 18:06 | HOSPPROG ---
Hospitalist Progress Note Assessment/Plan: Called by nursing regarding persistent hypotension--BP most recently 79/51--in review has been low much of the day, has had 1.5L NS bolus with minimal response. On evaluation, patient confused but awake and alert ,per nursing confusion has been persistent. Reviewed micro data: blood cxs x 2 with GPC in chains, on zosyn. Will add vanco for now given persistent hypotension pending final culture data. Will check lactate, give another 500ml bolus. If lactate significantly elevated or bp does not respond will re-evaluate, consider ICU transfer. Objective: Vital Signs Temp Pulse Resp BP Pulse Ox 36.9 C 93 20 87/58 L 90 L 08/12/18 16:00 08/12/18 16:00 08/12/18 16:00 08/12/18 16:00 08/12/18 16:00 Laboratory Results 08/12/18 06:10 08/12/18 06:10 08/11/18 08/12/18 08/13/18 05:59 05:59 05:59 Intake Total 0 2066 Output Total 350 Balance 0 1716 PT 12.4 SEC (12.0-15.0) 08/09/18 05:35 INR 0.90 (0.83-1.16) 08/09/18 05:35 ICD10 Worksheet Patient Problems: Problems Problem Status Onset Alcohol dependence Acute Heroin abuse Acute Alcoholic intoxication Acute Head injury Acute Pneumonia Acute Hypomagnesemia Acute Hypokalemia Acute Dehydration Acute Respiratory failure Acute Delirium tremens Acute Seizure Acute Common bile duct mass Acute
[2018-08-12] MEDS ORDERED: VANCOMYCIN HCL/NORMAL SALINE 250 ML IV SCH (19:00)
[2018-08-12] MEDS: traZODone 100 MG TAB PO SCH (20:08)
[2018-08-12] MEDS: KETOROLAC 30 MG/1 ML SDV IVP PRN (20:08)
[2018-08-12] MEDS: DAPTOMYCIN IV SCH (21:03)
[2018-08-12] MEDS: NS IV SCH (21:03)
[2018-08-13] MEDS: PIPERACILLIN/TAZO 3.375 GM/DEX 50 ML IV SCH ×5 (00:10→23:59)
[2018-08-13] MEDS: D5W NS W/ 20 KCl/L 1,000 ML IV SCH (01:00)
[2018-08-13 01:57] LABS: HIV TYPE 1 AND 2 NEGATIVE (NEGATIVE)
[2018-08-13 04:49] LABS: PLATELET COUNT 142 10^3/uL (150-400)
[2018-08-13] MEDS: GABAPENTIN 300 MG CAP PO SCH ×4 (05:41→19:56)
--- NOTE | 2018-08-13 08:26 | HOSPPROG ---
Hospitalist Progress Note Assessment/Plan: DIAGNOSES: * Acute Sepsis with increased fevers and hypotension, * Enterococcal Bacteremia with growth in all bottles -antibiotics include daptomycin, Zosyn -chart mentions history of recent endocarditis * acute cholecystitis is suspected with increasing right o'clock upper quadrant pain and tenderness * Retained CBD stone s/p failed ERCP -s/p IR transhepatic guided wire with successful repeat ERCP * Toxic/metabolic encephalopathy due to anesthesia + infection -improved today * Gastroparesis -due to narcotics * h/o TBI with cognitive dysfunction * Heroin abuse -Suboxone * Etoh abuse -no further evidence for withdrawal * Bipolar/PTSD -seroquel + trazodone * Tobacco dependence -patch * Hep C -HIV negative PLANS: * Continue current antibiotics, await final blood culture sensitivities * Follow vital signs very closely * Continue Suboxone, careful pain management * Watch for withdrawal from any of his substances * Appears to be in need of having his gallbladder removed, will review with surgery and Infectious Disease regarding timing I have reviewed with Dr Cruz today, will be reviewing with ID and surgery consultants SUBJECTIVE: Worsened right upper quadrant and right flank pain overnight Some nausea but no vomiting, is eating small amounts of food but this increases his pain Some flatus OBJECTIVE Vitals reviewed: So far this morning temperatures and blood pressures are better than last night, stable pulse and respirations Mailing Manager, my review: Sinus Exam: alert oriented normally interactive skin warm dry color ok, no jaundice resps not labored lungs clear BSs heart regular abd soft, bowel sounds present, mildly distended with significant tenderness with guarding in the right upper quadrant and right flank, no signs of peritonitis limbs warm, no edema iv site ok Laboratory data: Bilirubin and alk-phos now normalized, lipase also normal White blood cell count is increased today Renal function stable, electrolytes good Microbiology: Enterococcus growing in blood cultures, all bottles Objective: Vital Signs Temp Pulse Resp BP Pulse Ox 36.4 C 70 14 106/67 95 08/13/18 07:59 08/13/18 07:59 08/13/18 07:59 08/13/18 07:59 08/13/18 07:59 Microbiology 08/12/18 06:10 Blood Panel (PCR) - Final Blood Enterococcus Species 08/12/18 06:30 Blood Panel (PCR) - Final Blood Laboratory Results 08/13/18 04:35 08/13/18 04:35 08/12/18 08/13/18 08/14/18 06:59 06:59 06:59 Intake Total 8692 4919 Output Total 350 Balance 1716 4919 PT 12.4 SEC (12.0-15.0) 08/09/18 05:35 INR 0.90 (0.83-1.16) 08/09/18 05:35 - Time Spent With Patient Time Spent with Patient: greater than 35 minutes Time Spent with Patient: Greater than 35 minutes spent on this patients care, greater than 50% of time spent counseling, educating, and coordinating care regarding the above mentioned plan. ICD10 Worksheet Patient Problems: Problems Problem Status Onset Common bile duct mass Acute Alcohol dependence Acute Alcoholic intoxication Acute Dehydration Acute Delirium tremens Acute Head injury Acute Heroin abuse Acute Hypokalemia Acute Hypomagnesemia Acute Pneumonia Acute Respiratory failure Acute Seizure Acute
[2018-08-13] MEDS: KETOROLAC 30 MG/1 ML SDV IVP PRN (08:51)
[2018-08-13] MEDS: oxyCODONE IR 5 MG TAB PO PRN (08:53)
[2018-08-13] MEDS: THIAMINE HCL 100 MG TAB PO SCH (08:54)
[2018-08-13] MEDS: SENNOSIDES/DOCUSATE SODIUM TAB PO SCH ×2 (08:54→19:55)
[2018-08-13] MEDS: NICOTINE 14 MG/24 HR PATCH TD SCH (08:54)
[2018-08-13] MEDS: QUEtiapine FUMARATE 200 MG TAB PO SCH (09:06)
--- NOTE | 2018-08-13 10:39 | ECHO ---
[email or web address] [address] [address] Main: [phone] Fax: Transthoracic Echocardiogram Name: ROBBIE AHN MR#: [id number] Study Date: 08/13/2018 Study Time: 09:32 AM Date of : 1960 Age: 58 year(s) Height: 172.7 cm (68 in.) Weight: 58.06 kg (128 lb.) BSA: 1.69 m2 Gender: Male Examination: Echo Indication: Bile duct obstruction, Bacteremia Image Quality: Contrast: Requested by: Jason Velásquez BP: 106 mmHg/67 mmHg Heart Rate: Rhythm: Normal sinus rhythm with ectopy Indication: Bile duct obstruction, Bacteremia Procedure Staff Cougar Hunter: Forrest Morrison RDCS Reading Physician: Rosalino Mcgrath MD Requesting Provider: Conclusions: Normal size left ventricle. Normal global systolic LV function. EF is 64 %. No regional wall motion abnormality. Grade 1 diastolic dysfunction (abnormal relaxation). Normal RV function. The left atrium is normal in size. The right atrium is normal in size. The mitral valve is normal in appearance and function. The aortic valve is tri-leaflet. The tricuspid valve is normal in appearance and function. The pulmonic valve is normal in appearance and function. There is no obvious vegetation noted on the aortic or mitral valves.. Measurements: Chambers Valvular Assessment AV/MV Valvular Assessment TV/PV Normal Normal Normal Name Value Range Name Value Range Name Value Range Ao Gavi (MM): 3.4 cm (2.2 cm-3.7 AV Vmax: 1.30 m/s (1 m/s-1.7 TR Vmax: 2.81 mm/s ( - ) cm) m/s) TR PGmax: 32 mmHg ( - ) IVSd (2D): 0.9 cm (0.6 cm-1.1 AV maxP mmHg ( - ) syst. PAP: 42 mmHg ( - ) cm) LVOT Vmax: 0.76 m/s (0.7 m/s-1.1 PV Vmax: 1.06 m/s (0.6 m/s-0.9 LVDd (2D): 5.1 cm (4.2 cm-5.9 m/s) m/s) cm) MV E Vmax: 0.49 m/s ( - ) PV PGmax: 4 mmHg ( - ) LVDs (2D): 3.3 cm (2.1 cm-4 MV A Vmax: 0.74 m/s ( - ) cm) MV E/A: 0.66 ( - ) LVPWd (2D): 1.0 cm (0.6 cm-1 cm) LVEF (2D): 64 (>=54 %) Patient: ROBBIE AHN Study Date: 08/13/2018 Page 1 of 2 09:32 AM Continued Measurements: Chambers Valvular Assessment AV/MV Valvular Assessment TV/PV Name Value Name Value Name Value LADs Lon.5 cm MV E' Septal: 0.08 m/s CVP (est.): 10 mmHg LA Area: 17.6 cm2 MV E/E' Septal: 6.40 LA Volume: 55 ml MV E/E' Lateral: 8.00 LA Volume Index: 32.5 ml/m2 Findings: Left Ventricle: Normal size left ventricle. No LV hypertrophy. Normal global systolic LV function. EF is 64 %. No regional wall motion abnormality. Grade 1 diastolic dysfunction (abnormal relaxation). Right Ventricle: Normal size right ventricle. Normal RV function. Left Atrium: The left atrium is normal in size. Right Atrium: The right atrium is normal in size. Mitral Valve: The mitral valve is normal in appearance and function. There is no significant mitral valve regurgitation. Aortic Valve: The aortic valve is tri-leaflet. There is no significant aortic valve regurgitation. Tricuspid Valve: The tricuspid valve is normal in appearance and function. Trivial to mild tricuspid valve regurgitation. The pulmonary artery pressure is normal. Pulmonic Valve: The pulmonic valve is normal in appearance and function. Aorta: The aorta is normal. Pericardium: No pericardial effusion. Exam Comments: There is no obvious vegetation noted on the aortic or mitral valves.. (No Signature Object) Patient: ROBBIE AHN Study Date: 08/13/2018 Page 2 of 2 09:32 AM [id number]
[2018-08-13] MEDS ORDERED: ENOXAPARIN 40 MG/0.4 ML SYR SC SCH (10:45)
--- NOTE | 2018-08-13 11:16 | PCMIDPN ---
Assessment/Plan: Assessment: Enterococcal bacteremia-almost certainly secondary to ascending cholangitis due to the large obstructing biliary duct stone. 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 Patient was treated at multiple institutions. His treatment was interrupted by his leaving institutions against medical advice. Repeat echocardiogram done today shows no evidence of valvular vegetations. Patient is currently being treated on daptomycin and Zosyn. Will continue both antibiotics at present. The daptomycin will clearly cover the enterococcus and the Zosyn will be broad- spectrum GI coverage given the mechanism of ascending cholangitis. We will wait for the cultures to mature before consolidating treatment. Plan: 1. Continue both IV daptomycin and Zosyn at present empirically. 2. Follow up on identification of pathogen in initial blood cultures. Also follow up on sensitivities. 3. Follow up blood cultures in 1-2 days. Subjective: Patient is resting comfortably in his hospital bed. He has numerous comorbidities that make his recall of his history a bit foggy. He denies any fevers or chills. Has appetite for breakfast this morning. No other new complaints. Objective: Daptomycin # 2 Zosyn # 1 Vital Signs Temp Pulse Resp BP Pulse Ox 36.7 C 91 16 124/83 H 92 08/13/18 10:00 08/13/18 10:00 08/13/18 10:00 08/13/18 10:00 08/13/18 10:00 Microbiology 08/12/18 06:10 Blood Panel (PCR) - Final Blood Enterococcus Species 08/12/18 06:30 Blood Panel (PCR) - Final Blood Laboratory Results 08/13/18 04:35 08/13/18 04:35 08/12/18 08/13/18 08/14/18 05:59 05:59 05:59 Intake Total 2066 4919 Output Total 350 Balance 1716 4919 - Physical Exam General Appearance: WD/WN, alert, no apparent distress, non-toxic Respiratory: lungs clear, normal breath sounds, No respiratory distress Cardiac/Chest: regular rate, rhythm, No tachycardia, No systolic murmur Skin: normal color, warm/dry, No rash Neuro/Psych: alert, normal mood/affect, oriented x 3 ICD10 Worksheet Patient Problems: Problems Problem Status Onset Common bile duct mass Acute Alcohol dependence Acute Alcoholic intoxication Acute Dehydration Acute Delirium tremens Acute Head injury Acute Heroin abuse Acute Hypokalemia Acute Hypomagnesemia Acute Pneumonia Acute Respiratory failure Acute Seizure Acute
[2018-08-13] MEDS: ACETAMINOPHEN 325 MG TAB PO PRN (12:23)
--- NOTE | 2018-08-13 12:53 | SOAPPROG ---
SOAP Progress Note Assessment/Plan: Assessment/Plan: 1. Worsening RUQ pain, with possible mild ileus. ? intraabdominal process post- procedures, such as abscess, contained perforation, etc.? - case d/w Dr. Velásquez - abd CT 2. Recent enterococcal bacteremia, fever, hypotension. See above. Afeb x 24 hrs, with better VS. - CPM, including 'biots 08/13/18 12:50 Subjective: cc: cbd stone Worsening RUQ pain. Not passing gas, no bm. Afeb now. Tolerating po somewhat less. No rigors, chills. Objective: Vital Signs Temp Pulse Resp BP Pulse Ox 36.7 C 88 12 96/56 L 91 L 08/13/18 10:00 08/13/18 12:00 08/13/18 12:00 08/13/18 12:00 08/13/18 12:00 Microbiology 08/12/18 06:10 Blood Panel (PCR) - Final Blood Enterococcus Species 08/12/18 06:30 Blood Panel (PCR) - Final Blood Laboratory Results 08/13/18 04:35 08/13/18 04:35 08/12/18 08/13/18 08/14/18 05:59 05:59 05:59 Intake Total 2066 4919 480 Output Total 350 Balance 1716 4919 480 PT 12.4 SEC (12.0-15.0) 08/09/18 05:35 INR 0.90 (0.83-1.16) 08/09/18 05:35 Lipase now normal Physical Exam - Physical Exam General Appearance: WD/WN, alert, no apparent distress EENT: PERRL/EOMI, normal ENT inspection, pharynx normal, TMs normal Neck: non-tender, full range of motion, supple, normal inspection Respiratory: chest non-tender, lungs clear, normal breath sounds Cardiac/Chest: normal peripheral pulses, regular rate, rhythm Peripheral Pulses: 2+: carotid (R), carotid (L), femoral (R), femoral (L), dorsalis-pedis (R), dorsalis-pedis (L) Abdomen: normal bowel sounds, distended (mild, with somewhat decreased bowel sounds), No non-tender (RUQ moderate tenderness) Male Genitalia: deferred Rectal: deferred Back: Normal inspection Skin: normal color, warm/dry Lymphatic: no adenopathy Extremities: normal range of motion, non-tender, normal inspection, normal capillary refill Neuro/Psych: no motor/sensory deficits, alert, normal mood/affect, oriented x 3 ICD10 Worksheet Patient Problems: Problems Problem Status Onset Common bile duct mass Acute Alcohol dependence Acute Alcoholic intoxication Acute Dehydration Acute Delirium tremens Acute Head injury Acute Heroin abuse Acute Hypokalemia Acute Hypomagnesemia Acute Pneumonia Acute Respiratory failure Acute Seizure Acute
--- NOTE | 2018-08-13 12:59 | PDINTPN ---
Aircraft Inspector Progress Note Assessment/Plan: ASSESSMENT 58 yo male with polysubstance abuse (IV heroin, etoh) admitted with abdominal pain and found to have ascending cholangitis and severe sepsis due to obstructing biliary stone status post ERCP. # ascending cholangitis # enterococcal bacteremia. TTE on 08/13/18 without e/o endocarditis # severe sepsis # obstructive biliary stone # hypotension # history of culture negative endocarditis # polysubstance abuse. IV heroin and etoh. No e/o w/d at this point # bipolar mood d/o PLAN # continue zosyn and dapto per ID # agree with CT scan per GI # will likely need cholecystectomy, defer to surgery and GI regarding timing. # add multivitamin/thiamine and folic acid given etoh dependence # seroquel and trazodone for bipolar # buprenorphine for heroin addiction # Feeding - NPO # Analgesia APAP, buprenorphine # Sedation propofol # Thromboprophylaxis - SQ hep # Head of bed elevated # Ulcer prophylaxis - H2 micah # Glucose SSI # Skin no skin breakdown # Delirium - delirium precautions CX Data 08/12/18 BCx enterococcus EVENTS 08/12/18 attempted ERCP followed by cholangiogram and wire placement by IR IMAGING reviewed 08/13/18 13:38 Subjective: Transfer to ICU overnight for hypotension concern for septic shock. Stabilized after aggressive IV fluid resuscitation. Patient complains of mild ongoing right upper quadrant pain. Denies new fevers nausea vomiting shortness of breath or rashes Objective: Vital Signs Temp Pulse Resp BP Pulse Ox 36.7 C 88 12 96/56 L 91 L 08/13/18 10:00 08/13/18 12:00 08/13/18 12:00 08/13/18 12:00 08/13/18 12:00 Microbiology 08/12/18 06:10 Blood Panel (PCR) - Final Blood Enterococcus Species 08/12/18 06:30 Blood Panel (PCR) - Final Blood Laboratory Results 08/13/18 04:35 08/13/18 04:35 08/12/18 08/13/18 08/14/18 05:59 05:59 05:59 Intake Total 2066 4919 480 Output Total 350 Balance 1716 4919 480 PT 12.4 SEC (12.0-15.0) 08/09/18 05:35 INR 0.90 (0.83-1.16) 08/09/18 05:35 Physical Exam - Physical Exam General Appearance: alert, no apparent distress EENT: PERRL/EOMI, normal ENT inspection Neck: non-tender, normal inspection Respiratory: chest non-tender, lungs clear, normal breath sounds Cardiac/Chest: normal peripheral pulses, regular rate, rhythm, No edema, No gallop Abdomen: other (mild tenderness RUQ) Skin: normal color, warm/dry, No cyanosis Neuro/Psych: no motor/sensory deficits, alert, oriented x 3, other (flat affect) ICD10 Worksheet Patient Problems: Problems Problem Status Onset Common bile duct mass Acute Alcohol dependence Acute Alcoholic intoxication Acute Dehydration Acute Delirium tremens Acute Head injury Acute Heroin abuse Acute Hypokalemia Acute Hypomagnesemia Acute Pneumonia Acute Respiratory failure Acute Seizure Acute
[2018-08-13] MEDS ORDERED: MULTIVITAMINS W-IRON (PEDS) 1 ML UDSYR PO SCH (13:30)
[2018-08-13] MEDS ORDERED: IOPAMIDOL (ISOVUE-300) 100 ML BTL ONE (14:12)
[2018-08-13] MEDS ORDERED: ALBUMIN 5% 250 ML BOTTLE IV ONE (15:59)
[2018-08-13] MEDS ORDERED: ALBUMIN 5% 250 ML IV ONE (16:00)
[2018-08-13] MEDS ORDERED: NOREPINEPHRINE BITARTRATE 4 MG in NS 500 ML IV SCH (16:30)
--- NOTE | 2018-08-13 18:09 | SOAPPROG ---
SOAP Progress Note Assessment/Plan: Addendum: CT doesn't show abscess, perf, etc. However, a residual filling defect is seen in the distal cbd, which does not necessarily look like 'tic or blood. ? residual cbd stone or sludge. Otherwise, CT with fluid overload. Assessment/Plan: - reERCP tomorrow. Now that he has a sphincterotomy, hopefully will be easier and definitive, without need for rendezvous, etc. If difficult, we might need to place a stent, and repeat in 6 weeks. - diuresis, as per hospitalist service, critical care 08/13/18 18:06 Objective: Vital Signs Temp Pulse Resp BP Pulse Ox 36.5 C 78 15 86/58 L 94 08/13/18 15:44 08/13/18 15:44 08/13/18 15:44 08/13/18 15:44 08/13/18 15:44 Microbiology 08/12/18 06:30 Blood Panel (PCR) - Final Blood 08/12/18 06:10 Blood Panel (PCR) - Final Blood Enterococcus Species Laboratory Results 08/13/18 04:35 08/13/18 04:35 08/12/18 08/13/18 08/14/18 05:59 05:59 05:59 Intake Total 2066 4919 1780 Output Total 350 Balance 1716 4919 1780 PT 12.4 SEC (12.0-15.0) 08/09/18 05:35 INR 0.90 (0.83-1.16) 08/09/18 05:35 ICD10 Worksheet Patient Problems: Problems Problem Status Onset Common bile duct mass Acute Alcohol dependence Acute Alcoholic intoxication Acute Dehydration Acute Delirium tremens Acute Head injury Acute Heroin abuse Acute Hypokalemia Acute Hypomagnesemia Acute Pneumonia Acute Respiratory failure Acute Seizure Acute
[2018-08-13] MEDS: MULTIVITAMINS W-MINERALS 1 EACH TAB PO SCH (18:56)
[2018-08-13] MEDS: DAPTOMYCIN IV SCH (19:48)
[2018-08-13] MEDS: NS IV SCH (19:48)
[2018-08-13] MEDS: METHOCARBAMOL 750 MG TAB PO PRN (19:55)
[2018-08-13] MEDS: traZODone 100 MG TAB PO SCH (19:55)
[2018-08-14] MEDS: LORazepam 0.5 MG TAB PO PRN ×2 (02:52→21:08)
[2018-08-14] MEDS: oxyCODONE IR 5 MG TAB PO PRN (02:52)
[2018-08-14] MEDS: PIPERACILLIN/TAZO 3.375 GM/DEX 50 ML IV SCH ×3 (05:10→17:40)
[2018-08-14] MEDS: GABAPENTIN 300 MG CAP PO SCH ×5 (05:10→21:08)
--- NOTE | 2018-08-14 09:09 | PDINTPN ---
Sealer Sander Progress Note Assessment/Plan: ASSESSMENT 58 yo male with polysubstance abuse (IV heroin, etoh) admitted with abdominal pain and found to have ascending cholangitis and severe sepsis due to obstructing biliary stone status post ERCP. # ascending cholangitis # enterococcal bacteremia. TTE on 08/13/18 without e/o endocarditis # severe sepsis # obstructive biliary stone # bilateral pleural effusions, suspect sympathetic given abdominal pathology with a component of hypervolemia. # hypotension # history of culture negative endocarditis # polysubstance abuse. IV heroin and etoh. No e/o w/d at this point # bipolar mood d/o PLAN # plans for repeat ERCP today # repeat blood cultures today #continue zosyn and dapto per ID # agree with scheduled diuresis # follow pleural effusions. Repeat CXR in 1-2 days, if effusions, worsening despite diuresis, may need thoracentesis. # will likely need cholecystectomy, defer to surgery and GI regarding timing. # multivitamin/thiamine and folic acid given etoh dependence # seroquel and trazodone for bipolar mood disorder # buprenorphine for heroin addiction # Feeding - NPO # Analgesia APAP, buprenorphine # Sedation none # Thromboprophylaxis - SCDs, hold heparin for procedure # Head of bed elevated # Ulcer prophylaxis - NA # Glucose SSI # Skin no skin breakdown # Delirium - delirium precautions CX Data 08/12/18 BCx enterococcus EVENTS 08/12/18 attempted ERCP followed by cholangiogram and wire placement by IR IMAGING Personally reviewed interpreted images well as formal radiology reads. 08/13/18 CT abdomen. no abscess. Residual 7 mm stone vs clot. Mild to moderate pleural effusions. Diffuse mesentary edema 08/14/18 09:22 Objective: Vital Signs Temp Pulse Resp BP Pulse Ox 36.8 C 103 H 14 119/75 91 L 08/14/18 08:00 08/14/18 08:00 08/14/18 08:00 08/14/18 08:00 08/14/18 08:00 Microbiology 08/12/18 06:10 Blood Panel (PCR) - Final Blood Enterococcus Species 08/12/18 06:30 Blood Panel (PCR) - Final Blood Laboratory Results 08/13/18 04:35 08/13/18 04:35 08/13/18 08/14/18 08/15/18 05:59 05:59 05:59 Intake Total 4923 6532 Balance 4919 3362 PT 12.4 SEC (12.0-15.0) 08/09/18 05:35 INR 0.90 (0.83-1.16) 08/09/18 05:35 Physical Exam - Physical Exam General Appearance: alert EENT: PERRL/EOMI, normal ENT inspection Neck: full range of motion, supple Respiratory: chest non-tender, lungs clear, crackles Cardiac/Chest: normal peripheral pulses, regular rate, rhythm Abdomen: other (Mild tenderness to palpation right upper quadrant), No distended , No guarding Extremities: normal range of motion, non-tender Neuro/Psych: no motor/sensory deficits, alert, normal mood/affect, oriented x 3 ICD10 Worksheet Patient Problems: Problems Problem Status Onset Common bile duct mass Acute Alcohol dependence Acute Alcoholic intoxication Acute Dehydration Acute Delirium tremens Acute Head injury Acute Heroin abuse Acute Hypokalemia Acute Hypomagnesemia Acute Pneumonia Acute Respiratory failure Acute Seizure Acute
--- NOTE | 2018-08-14 09:11 | HOSPPROG ---
Hospitalist Progress Note Assessment/Plan: DIAGNOSES: * Acute Sepsis with increased fevers and hypotension, * Enterococcal Bacteremia with growth in all bottles; vancomycin resistance per BCID with final sensitivities pending -antibiotics include daptomycin, Zosyn -chart mentions history of recent endocarditis, but no specific details * Retained CBD stone s/p failed ERCP -subsequent IR transhepatic guided wire with successful removal of a stone by ERCP -possible 2nd distal bile duct stone noted on CT scan 08/13 * acute cholecystitis is suspected with increasing right o'clock upper quadrant pain and tenderness. * Toxic/metabolic encephalopathy due to anesthesia + infection -resolved at this time * Gastroparesis -due to narcotics * h/o TBI with cognitive dysfunction * history of Heroin abuse -Suboxone * Etoh abuse -no evidence for withdrawal * Bipolar/PTSD -seroquel + trazodone * Tobacco dependence -patch * Hep C -HIV negative Blood pressures are more stable today but still having significant pain and tenderness in abdomen, question if due to another stone in the bile duct verses cholecystitis/cholangitis verses potential perforation from percutaneous wire PLANS: * Is scheduled for repeat ERCP today, will review with Dr. Ceron after that is done * Continue current antibiotics, await final blood culture sensitivities * Repeat blood cultures to surveil for clearance ordered for today * Check for lab results as they become available * Follow vital signs very closely * Continue Suboxone, careful pain management * Watch for withdrawal from any of his substances * Appears to be in need of having his gallbladder removed, will review with surgery and Infectious Disease regarding timing I have reviewed with Dr Cruz today in ICU SUBJECTIVE: Still with pain and right upper quadrant he believes about the same as yesterday Nauseous but not vomiting No new difficulties overnight, no shortness of breath OBJECTIVE Vitals reviewed: Afebrile overnight, blood pressure is better overnight and this morning, still intermittent tachycardia Information Officer, my review: Sinus Exam: alert oriented good mentation, uncomfortable but not in distress skin warm dry color ok, no jaundice resps not labored lungs clear BSs heart regular abd soft, bowel sounds present, less distended with significant tenderness with guarding in the right upper quadrant and right flank, no signs of peritonitis limbs warm, no edema iv site ok Laboratory data: Today's labs pending so far with CBC and liver panel ordered Microbiology: Vancomycin resistant Enterococcus growing in blood cultures by BCID, all bottles Objective: Vital Signs Temp Pulse Resp BP Pulse Ox 36.8 C 103 H 14 119/75 91 L 08/14/18 08:00 08/14/18 08:00 08/14/18 08:00 08/14/18 08:00 08/14/18 08:00 Microbiology 08/12/18 06:10 Blood Panel (PCR) - Final Blood Enterococcus Species 08/12/18 06:30 Blood Panel (PCR) - Final Blood Laboratory Results 08/13/18 04:35 08/13/18 04:35 08/13/18 08/14/18 08/15/18 06:59 06:59 06:59 Intake Total 4919 3362 Balance 4919 3362 PT 12.4 SEC (12.0-15.0) 08/09/18 05:35 INR 0.90 (0.83-1.16) 08/09/18 05:35 - Time Spent With Patient Time Spent with Patient: greater than 35 minutes Time Spent with Patient: Greater than 35 minutes spent on this patients care, greater than 50% of time spent counseling, educating, and coordinating care regarding the above mentioned plan. ICD10 Worksheet Patient Problems: Problems Problem Status Onset Common bile duct mass Acute Alcohol dependence Acute Alcoholic intoxication Acute Dehydration Acute Delirium tremens Acute Head injury Acute Heroin abuse Acute Hypokalemia Acute Hypomagnesemia Acute Pneumonia Acute Respiratory failure Acute Seizure Acute
[2018-08-14] MEDS: FOLIC ACID 1 MG TAB PO SCH (09:42)
[2018-08-14] MEDS: MULTIVITAMINS W-MINERALS 1 EACH TAB PO SCH (09:42)
[2018-08-14] MEDS: SENNOSIDES/DOCUSATE SODIUM TAB PO SCH ×2 (09:42→21:08)
[2018-08-14] MEDS: NICOTINE 14 MG/24 HR PATCH TD SCH (09:42)
[2018-08-14] MEDS: QUEtiapine FUMARATE 200 MG TAB PO SCH (09:43)
[2018-08-14] MEDS: THIAMINE HCL 100 MG TAB PO SCH (09:43)
[2018-08-14 11:37] LABS: PLATELET COUNT 151 10^3/uL (150-400)
[2018-08-14] MEDS ORDERED: LR 1,000 ML IV ONE (12:16)
[2018-08-14] MEDS ORDERED: GLUCAGON HCL 1 MG VIAL ONE (12:18)
[2018-08-14] MEDS ORDERED: IOTHALAMATE MEG (CONRAY) 50 ML VIAL IV ONE (12:19)
[2018-08-14] MEDS ORDERED: INDOMETHACIN 50 MG SUPP PR ONE ×2 (12:19→14:07)
[2018-08-14] MEDS ORDERED: fentaNYL 100 MCG/2 ML INJ ONE (12:31)
[2018-08-14] MEDS ORDERED: PROPOFOL 200 MG/20 ML VIAL ONE (12:31)
[2018-08-14] MEDS ORDERED: ROCURONIUM 50 MG/5 ML VIAL ONE (12:31)
[2018-08-14] MEDS ORDERED: LIDOCAINE 2% 100 MG/5 ML SYR ONE (12:33)
[2018-08-14] MEDS ORDERED: SUGAMMADEX SODIUM 200 MG/2 ML VIAL IVP ONE (12:58)
[2018-08-14] MEDS ORDERED: ONDANSETRON 4 MG/2 ML VIAL IVP PRN (14:45)
[2018-08-14] MEDS ORDERED: ALBUTEROL 3 ML DEYVIAL IH PRN (14:45)
--- NOTE | 2018-08-14 14:45 | POSTANESTH ---
Post Anesthetic Evaluation Cardiovascular Status: Similar to Pre-Op Cond Respiratory Status: Similar to Pre-op Cond. Level of Consciousness/Mental Status: Mildly Sleepy, Arousable Pain Control: Adequate, Prn Tx Ordered Nausea/Vomiting Control: Adequate, Prn Tx Ordered Complications Possibly Related to Anesthesia: None Noted
--- NOTE | 2018-08-14 14:45 | PDANEPAE ---
ANE Past Medical History - Cardiovascular History Hx Hypertension: No Hx Arrhythmias: Yes Hx Chest Pain: No Hx Coronary Artery / Peripheral Vascular Disease: No Cardiovascular History Comment: irregular heart beat on propranolol until a few yrs ago when pt stopped taking it. - Pulmonary History Hx COPD: No Hx Asthma/Reactive Airway Disease: No Hx Oxygen in Use at Home: No Hx Sleep Apnea: Yes Sleep Apnea Screening Result - Last Documented: Positive Pulmonary History Comment: Pt denies any MARC, but does report insomnia. - Endocrine History Hx Diabetes: No - Renal History Hx Renal Disorders: No - Liver History Hx Hepatic Disorders: Yes Hepatic History Comment: hepatitis C - Neurological & Psychiatric Hx Hx Neurological and Psychiatric Disorders: Yes Neurological / Psychiatric History Comment: bipolar d/o, h/o heroine use - Cancer History Hx Cancer: No - GI History Hx Gastrointestinal Disorders: No ANE Review of Systems Review of Systems: ANE Patient History - Allergies Allergies/Adverse Reactions: No Known Allergies Allergy (Verified 08/06/18 00:56) - Home Medications Home Medications: Buprenorphine HCl/Naloxone HCl [Suboxone 8 mg-2 mg Sl Film] 1 each SL DAILY 08/07 [Last Taken Unknown] QUEtiapine FUMARATE [Seroquel 200 mg (*)] 200 - 400 mg PO DAILY 08/01/18 [Last Taken Unknown] traZODone [traZODONE 100MG (*)] 200 mg PO HS 08/01/18 [Last Taken Unknown] Gabapentin [Neurontin 300 MG (*)] 300 mg PO QID 08/06/18 [Last Taken Unknown] Herbals/Supplements -Info Only 1 ea PO DAILY 08/06/18 [Last Taken Unknown] Multivitamins [Multivitamin (*)] 1 each PO DAILY 08/06/18 [Last Taken Unknown] - NPO status NPO Since - Liquids (Date): 08/11/18 NPO Since - Liquids (Time): 00:00 NPO Since - Solids (Date): 08/11/18 NPO Since - Solids (Time): 00:00 - Smoking Hx Smoking Status: Current every day smoker - Alcohol Use Alcohol Use: Heavy (Five days previously heavy use of liquor. Drinks 1 pint of hard liquor daily.) ANE Labs/Vital Signs - Labs Result Diagrams: 08/14/18 11:00 08/13/18 04:35 - Vital Signs Blood Pressure: 104/58 Heart Rate: 106 Respiratory Rate: 15 O2 Sat (%): 97 Height: 172.72 cm Weight: 58.06 kg ANE Physical Exam - Airway Neck exam: decreased ROM Mallampati Score: Class 2 Mouth exam: poor dentition - Pulmonary Pulmonary: no respiratory distress - Cardiovascular Cardiovascular: regular rate and rhythym - ASA Status ASA Status: III, E ANE Anesthesia Plan Anesthesia Plan: general endotracheal anesthesia
--- NOTE | 2018-08-14 14:51 | GIREPORT ---
[facility] - Endoscopy Department Patient Name: Pepe Stanton Procedure Date: 08/14/2018 12:19 PM Patient Type: Inpatient Attending MD/ ER Physician: Eliceo Ceron MD Procedure: ERCP Indications: Suspected bile duct stone Providers: Eliceo Ceron MD, [facility] Referring MD: [facility] Hospitalist service Medicines: See the Anesthesia note for documentation of the administered medicatio ns, Indomethacin 100 mg [place] Complications: No immediate complications. Description of Procedure: After obtaining informed consent, the scope was passed under direct vis ion. Throughout the procedure, the patient's blood pressure, pulse, and oxyg en saturations were monitored continuously. The Duodenalscope was introduc ed through the mouth, and advanced to the duodenum and used to inject cont rast into the bile duct. Findings: Selective cbd cannulation with a wire was achieved. Cholangiogram showe d a 7 mm cbd stone. Contrast was injected. I personally interpreted the bile duct images. A 13 mm biliary sphincterotomy was made with a sphincterotome. There was no post-sphincterotomy bleeding. The stone was then crushed with a basket, and removed with a 13.5 mm balloon. Post balloon-occlusive cholangiogram was normal. Estimated Blood Loss: none. Post Op Diagnosis: - cbd stone, as above, removed. Recommendation: - feed - no LFTs tomorrow (falsely goes up from edema from ERCP); rather, will recheck LFTs in about three weeks, make sure they normalize, as I suspe ct. Thank you for allowing me to help in the management of this patient. Attending Participation: I personally performed the entire procedure. Jie Fenton MD Eliceo Ceron MD 08/14/2018 2:50:39 PM This report has been signed electronicallyPeter MD Jie Number of Addenda: 0 Note Initiated On: 08/14/2018 12:19 PM [email or web address]
--- NOTE | 2018-08-14 14:57 | SOAPPROG ---
SOAP Progress Note Assessment/Plan: Assessment/Plan: CT with a residual filling defect in the distal cbd, which does not necessarily look like 'tic or blood. ? residual cbd stone or sludge. - reERCP tomorrow. Now that he has a sphincterotomy, hopefully will be easier and definitive, without need for rendezvous, etc. If difficult, we might need to place a stent, and repeat in 6 weeks. With his bacteremia, etc., high risk for this procedure, but suspect will do well. 08/14/18 14:54 Subjective: cc: ruq pain Still with the above. No rigors, chills, sweat. Objective: Vital Signs Temp Pulse Resp BP Pulse Ox 36.2 C 109 H 20 103/72 96 08/14/18 14:38 08/14/18 14:50 08/14/18 14:50 08/14/18 14:50 08/14/18 14:50 Microbiology 08/12/18 06:30 Blood Culture - Final Blood Enterococcus Faecium Vre Blood Panel (PCR) - Final 08/12/18 06:10 Blood Culture - Final Blood Enterococcus Faecium Vre Blood Panel (PCR) - Final Enterococcus Species Laboratory Results 08/14/18 11:00 08/13/18 04:35 08/13/18 08/14/18 08/15/18 05:59 05:59 05:59 Intake Total 4919 3362 750 Output Total 0 Balance 4919 3362 750 PT 12.4 SEC (12.0-15.0) 08/09/18 05:35 INR 0.90 (0.83-1.16) 08/09/18 05:35 Physical Exam - Physical Exam General Appearance: WD/WN, alert, no apparent distress EENT: PERRL/EOMI, normal ENT inspection, pharynx normal, TMs normal Neck: non-tender, full range of motion, supple, normal inspection Respiratory: chest non-tender, lungs clear, normal breath sounds Cardiac/Chest: normal peripheral pulses, regular rate, rhythm Peripheral Pulses: 2+: carotid (R), carotid (L), femoral (R), femoral (L), dorsalis-pedis (R), dorsalis-pedis (L) Abdomen: normal bowel sounds, soft, No non-tender (RUQ mild tenderness) Male Genitalia: deferred Rectal: deferred Back: Normal inspection Skin: normal color, warm/dry Lymphatic: no adenopathy Extremities: normal range of motion, non-tender, normal inspection, normal capillary refill Neuro/Psych: no motor/sensory deficits, alert, normal mood/affect, oriented x 3 ICD10 Worksheet Patient Problems: Problems Problem Status Onset Common bile duct mass Acute Alcohol dependence Acute Alcoholic intoxication Acute Dehydration Acute Delirium tremens Acute Head injury Acute Heroin abuse Acute Hypokalemia Acute Hypomagnesemia Acute Pneumonia Acute Respiratory failure Acute Seizure Acute
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
[2018-08-14] MEDS: DAPTOMYCIN IV SCH (21:08)
[2018-08-14] MEDS: METHOCARBAMOL 750 MG TAB PO PRN (21:08)
[2018-08-14] MEDS: NS IV SCH (21:08)
[2018-08-14] MEDS: traZODone 100 MG TAB PO SCH (21:08)
[2018-08-15] MEDS: PIPERACILLIN/TAZO 3.375 GM/DEX 50 ML IV SCH ×5 (01:04→23:23)
[2018-08-15] MEDS: GABAPENTIN 300 MG CAP PO SCH ×5 (05:58→20:11)
[2018-08-15] MEDS: METHOCARBAMOL 750 MG TAB PO PRN (08:28)
[2018-08-15] MEDS: SENNOSIDES/DOCUSATE SODIUM TAB PO SCH ×2 (08:28→20:10)
[2018-08-15] MEDS: FOLIC ACID 1 MG TAB PO SCH (08:28)
[2018-08-15] MEDS: MULTIVITAMINS W-MINERALS 1 EACH TAB PO SCH (08:29)
[2018-08-15] MEDS: THIAMINE HCL 100 MG TAB PO SCH (08:29)
[2018-08-15] MEDS: QUEtiapine FUMARATE 200 MG TAB PO SCH (08:29)
[2018-08-15] MEDS: NICOTINE 14 MG/24 HR PATCH TD SCH (08:32)
[2018-08-15] MEDS: oxyCODONE IR 5 MG TAB PO PRN ×3 (08:34→23:34)
[2018-08-15] MEDS ORDERED: FUROSEMIDE 40 MG/4 ML VIAL IVP ONE (10:04)
--- NOTE | 2018-08-15 10:18 | HOSPPROG ---
Hospitalist Progress Note Assessment/Plan: DIAGNOSES: * new onset of hypoxemia, pulmonary edema volume overload today in the setting of acute illness with IV fluids -will need evaluation for possible CHF * Acute Sepsis with increased fevers and hypotension due to biliary disease * Enterococcal Bacteremia with growth in all bottles; vancomycin resistance per BCID with final sensitivities pending -antibiotics include daptomycin, Zosyn * Retained CBD stone s/p failed ERCP -subsequent IR transhepatic guided wire with successful removal of a common duct stone by ERCP 08/09 -2nd common bile duct stone removed by repeat ERCP 08/14 * cholecystitis noted on CT scan * Toxic/metabolic encephalopathy due to anesthesia + infection -resolved at this time * Gastroparesis -due to narcotics * h/o TBI with cognitive dysfunction * history of Heroin abuse -Suboxone * current methadone use in the outpatient setting, along with marijuana * Etoh abuse -no evidence for withdrawal * Bipolar/PTSD -seroquel + trazodone * Tobacco dependence -patch * Hep C -HIV negative Blood pressures are more stable today but still having significant pain and tenderness in abdomen, question if due to another stone in the bile duct verses cholecystitis/cholangitis verses potential perforation from percutaneous wire PLANS: * Echocardiogram is ordered for today * IV Lasix ordered at this time * Continue current antibiotics, await final blood culture sensitivities * Follow for results of repeat blood cultures * Repeat CBC and metabolic panel tomorrow * Follow vital signs very closely * Continue Suboxone, careful pain management * Appears to be in need of having his gallbladder removed, but this can be delayed as long as he is recovering SUBJECTIVE: With abdominal pain today, eating okay, no of nausea Some increased cough, some shortness of breath No other new symptoms OBJECTIVE Vitals reviewed: Afebrile overnight, some mildly low blood pressures overnight that have resolved spontaneously, blood pressure is good now, normal pulse and respirations Client Service Administrator, my review: Sinus Oxygen: His oxygen requirement is up to 4 L to 5 L this morning Exam: alert oriented good mentation, uncomfortable but not in distress skin warm dry color ok, no jaundice resps not labored Jugular venous distention is noted lungs very diminished breath sounds, no audible rales or wheeze heart regular, very quiet heart tones but no audible murmur or gallop abd soft, bowel sounds present, less distended less tender today limbs warm, 1+ bilateral ankle edema iv site ok Microbiology: Vancomycin resistant Enterococcus growing in initial blood cultures, all bottles Repeat surveillance blood cultures 08/14 no growth so far I reviewed chest x-ray image from this morning which shows evidence of some pulmonary edema and pleural effusion Objective: Vital Signs Temp Pulse Resp BP Pulse Ox 36.6 C 82 12 106/68 94 08/15/18 08:27 08/15/18 08:27 08/15/18 08:27 08/15/18 08:27 08/15/18 08:27 Microbiology 08/12/18 06:30 Blood Culture - Final Blood Enterococcus Faecium Vre Blood Panel (PCR) - Final 08/12/18 06:10 Blood Culture - Final Blood Enterococcus Faecium Vre Blood Panel (PCR) - Final Enterococcus Species Laboratory Results 08/14/18 11:00 08/13/18 04:35 08/14/18 08/15/18 08/16/18 06:59 06:59 06:59 Intake Total 3362 2535 Output Total 350 Balance 3362 2185 PT 12.4 SEC (12.0-15.0) 08/09/18 05:35 INR 0.90 (0.83-1.16) 08/09/18 05:35 - Time Spent With Patient Time Spent with Patient: greater than 35 minutes Time Spent with Patient: Greater than 35 minutes spent on this patients care, greater than 50% of time spent counseling, educating, and coordinating care regarding the above mentioned plan. ICD10 Worksheet Patient Problems: Problems Problem Status Onset Common bile duct mass Acute Alcohol dependence Acute Alcoholic intoxication Acute Dehydration Acute Delirium tremens Acute Head injury Acute Heroin abuse Acute Hypokalemia Acute Hypomagnesemia Acute Pneumonia Acute Respiratory failure Acute Seizure Acute
--- NOTE | 2018-08-15 10:35 | PDINTPN ---
Data Center Operator Progress Note Assessment/Plan: ASSESSMENT 58 yo male with polysubstance abuse (IV heroin, etoh) admitted with abdominal pain and found to have ascending cholangitis and severe sepsis due to obstructing biliary stone status post ERCP x 2 and transhepatic cholangiogram clinically improving # ascending cholangitis, resolved # enterococcal bacteremia. TTE on 08/13/18 without e/o endocarditis # severe sepsis, resolved # obstructive biliary stone s/p ERCP x 2 # bilateral pleural effusions, suspect sympathetic given abdominal pathology with a component of hypervolemia. # hypotension # history of culture negative endocarditis # polysubstance abuse. IV heroin and etoh. No e/o w/d at this point # bipolar mood d/o # hypervolemia PLAN #continue zosyn and dapto per ID # agree with diuresis # follow pleural effusions. Repeat CXR in 1-2 days, if effusions, worsening despite diuresis, may need thoracentesis. # will likely need cholecystectomy as outpatient # multivitamin/thiamine and folic acid given etoh dependence # seroquel and trazodone for bipolar mood disorder # buprenorphine for heroin addiction # Feeding - advanced as tolerated # Analgesia APAP, buprenorphine # Sedation none # Thromboprophylaxis - heparin # Head of bed elevated # Ulcer prophylaxis - NA # Glucose SSI # Skin no skin breakdown # Delirium - delirium precautions CX Data 08/12/18 BCx enterococcus EVENTS 08/12/18 attempted ERCP followed by cholangiogram and wire placement by IR IMAGING Personally reviewed interpreted images well as formal radiology reads. 08/13/18 CT abdomen. no abscess. Residual 7 mm stone vs clot. Mild to moderate pleural effusions. Diffuse mesentery edema 08/15/18 CXR with small bilateral effusions Subjective: Repeat ERCP yesterday successful with removal of billiary stone. Hypoxemic while sleeping. Lasix and TTE ordered this AM. Still complaining of mild neck and back pain. Improving abdominal pain. No fevers, chills, nausea, vomiting. Objective: Vital Signs Temp Pulse Resp BP Pulse Ox 36.6 C 82 12 106/68 94 08/15/18 08:27 08/15/18 08:27 08/15/18 08:27 08/15/18 08:27 08/15/18 08:27 Microbiology 08/12/18 06:30 Blood Culture - Final Blood Enterococcus Faecium Vre Blood Panel (PCR) - Final 08/12/18 06:10 Blood Culture - Final Blood Enterococcus Faecium Vre Blood Panel (PCR) - Final Enterococcus Species Laboratory Results 08/14/18 11:00 08/13/18 04:35 08/14/18 08/15/18 08/16/18 05:59 05:59 05:59 Intake Total 3362 2535 Output Total 350 Balance 3362 2185 PT 12.4 SEC (12.0-15.0) 08/09/18 05:35 INR 0.90 (0.83-1.16) 08/09/18 05:35 Physical Exam - Physical Exam General Appearance: alert EENT: PERRL/EOMI, normal ENT inspection Neck: non-tender, full range of motion Respiratory: chest non-tender, lungs clear, normal breath sounds Cardiac/Chest: normal peripheral pulses, regular rate, rhythm, edema Abdomen: other (Soft, mild tenderness to palpation) Back: Normal inspection Skin: normal color, warm/dry Extremities: normal range of motion, non-tender, normal inspection Neuro/Psych: no motor/sensory deficits, alert, normal mood/affect, oriented x 3 ICD10 Worksheet Patient Problems: Problems Problem Status Onset Common bile duct mass Acute Alcohol dependence Acute Alcoholic intoxication Acute Dehydration Acute Delirium tremens Acute Head injury Acute Heroin abuse Acute Hypokalemia Acute Hypomagnesemia Acute Pneumonia Acute Respiratory failure Acute Seizure Acute
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
[2018-08-15 12:04] LABS: CREATINE KINASE < 20 IU/L (0-224)
--- NOTE | 2018-08-15 12:36 | SOAPPROG ---
SOAP Progress Note Assessment/Plan: Assessment/Plan: CBD stone, now removed. Doing better, with less pain, normotensive, afebrile, etc. Some neck pain, and being evaluated for an infectious cause, but suspect might be musculoskeletal only due to awkward position required for ERCP (he had three of them!). - he will require lap jv at some point I will sign off; I'll arrange repeat LFTs in about three weeks, to make sure they remain normal, as I suspect. Otherwise, please call if we can be of further help [phone]). 08/15/18 12:38 Subjective: cc: cbd stone RUQ pain less. Good po intake. Denies rigors, chills, sweats. Neck pain. Objective: Vital Signs Temp Pulse Resp BP Pulse Ox 36.6 C 80 12 103/75 97 08/15/18 08:27 08/15/18 12:00 08/15/18 12:00 08/15/18 12:00 08/15/18 12:00 Microbiology 08/12/18 06:30 Blood Culture - Final Blood Enterococcus Faecium Vre Blood Panel (PCR) - Final 08/12/18 06:10 Blood Culture - Final Blood Enterococcus Faecium Vre Blood Panel (PCR) - Final Enterococcus Species Laboratory Results 08/14/18 11:00 08/13/18 04:35 08/14/18 08/15/18 08/16/18 05:59 05:59 05:59 Intake Total 3362 2535 Output Total 350 650 Balance 3362 2185 -650 PT 12.4 SEC (12.0-15.0) 08/09/18 05:35 INR 0.90 (0.83-1.16) 08/09/18 05:35 Physical Exam - Physical Exam General Appearance: WD/WN, alert, no apparent distress EENT: PERRL/EOMI, normal ENT inspection, pharynx normal, TMs normal Neck: non-tender, full range of motion, supple, normal inspection Respiratory: chest non-tender, lungs clear, normal breath sounds Cardiac/Chest: normal peripheral pulses, regular rate, rhythm Peripheral Pulses: 2+: carotid (R), carotid (L), femoral (R), femoral (L), dorsalis-pedis (R), dorsalis-pedis (L) Abdomen: normal bowel sounds, soft, No non-tender (some ruq tenderness, but less ) Male Genitalia: deferred Rectal: deferred Back: Normal inspection Skin: normal color, warm/dry Lymphatic: no adenopathy Extremities: normal range of motion, non-tender, normal inspection, normal capillary refill Neuro/Psych: no motor/sensory deficits, alert, normal mood/affect, oriented x 3 ICD10 Worksheet Patient Problems: Problems Problem Status Onset Common bile duct mass Acute Alcohol dependence Acute Alcoholic intoxication Acute Dehydration Acute Delirium tremens Acute Head injury Acute Heroin abuse Acute Hypokalemia Acute Hypomagnesemia Acute Pneumonia Acute Respiratory failure Acute Seizure Acute
[2018-08-15] MEDS: ENOXAPARIN 40 MG/0.4 ML SYR SC SCH (12:47)
--- NOTE | 2018-08-15 14:17 | ASMTCMCOM ---
CM Note CM Note Notes: 3rd attempt at ERCP-stone removal. Patient polysubstance abuse: heroin, ETOH, Bipolar, Homeless. Will need a [facility] bed and [facility]t on discharge. May transfer to floor today. Date Signed: 08/15/2018 02:16 PM Electronically Signed By:Amalia Wick LCSW
[2018-08-15] MEDS ORDERED: GADOBUTROL 10 ML VIAL IVP ONE (14:38)
[2018-08-15] MEDS: DAPTOMYCIN IV SCH (19:48)
[2018-08-15] MEDS: NS IV SCH (19:48)
[2018-08-15] MEDS: traZODone 100 MG TAB PO SCH (20:11)
[2018-08-15] MEDS: LORazepam 0.5 MG TAB PO PRN (20:21)
[2018-08-16] MEDS: oxyCODONE IR 5 MG TAB PO PRN ×4 (03:00→21:34)
[2018-08-16] MEDS: PIPERACILLIN/TAZO 3.375 GM/DEX 50 ML IV SCH (05:50)
[2018-08-16] MEDS: METHOCARBAMOL 750 MG TAB PO PRN ×2 (05:51→17:13)
[2018-08-16] MEDS: GABAPENTIN 300 MG CAP PO SCH ×4 (05:51→21:34)
[2018-08-16] MEDS: ENOXAPARIN 40 MG/0.4 ML SYR SC SCH (09:00)
[2018-08-16] MEDS: QUEtiapine FUMARATE 200 MG TAB PO SCH (09:00)
[2018-08-16] MEDS: SENNOSIDES/DOCUSATE SODIUM TAB PO SCH ×2 (09:01→21:45)
[2018-08-16] MEDS: MULTIVITAMINS W-MINERALS 1 EACH TAB PO SCH (09:02)
[2018-08-16] MEDS: FOLIC ACID 1 MG TAB PO SCH (09:02)
[2018-08-16] MEDS: THIAMINE HCL 100 MG TAB PO SCH (09:02)
[2018-08-16] MEDS: NICOTINE 14 MG/24 HR PATCH TD SCH (09:03)
--- NOTE | 2018-08-16 11:19 | PCMIDPN ---
Assessment/Plan: 1. VRE sepsis secondary to cholangitis with obstructing common bile duct stone status post extraction August 14: Continue high-dose daptomycin (10 milligrams/kilogram) for vancomycin resistant Enterococcus faecium bacteremia. CK is flat. Blood cultures cleared quickly; TTE negative for evidence of valvular vegetations. Will likely treat for 10 days; stop date August 23. Patient unfortunately needs to stay here for the duration of his treatment given homelessness, heroin use and other complicating factors. Do not feel confident that he will take oral linezolid as an outpatient. Discontinue Pipracil in/tazobactam. 2. Hepatitis-C antibody positive: Obtain RNA. Will also check hepatitis a and B serologies to ensure that he is immune to these entities. There is a significant hepatitis a outbreak among the homeless presently and he is at risk for form and hepatitis a in the setting of concomitant hepatitis-C. 3. Drug abuse: Talked to him at length today about the deleterious effects of ongoing drug use. The patient states he smokes heroin, as he tells me"I have got no veins left.". HIV negative. Over 25 min spent with this patient today. Subjective: Starting to feel better. Still has some neck pain. Talked to him about his MRI results, which showed significant degenerative joint disease in this area. No evidence of infection. Objective: Daptomycin 580 mg IV daily day 5 Zosyn 3.375 g IV q.6 hours day 4 Afebrile Vital Signs Temp Pulse Resp BP Pulse Ox 36.9 C 80 16 133/89 H 96 08/16/18 08:00 08/16/18 08:00 08/16/18 08:00 08/16/18 08:00 08/16/18 08:00 Laboratory Results 08/14/18 11:00 08/13/18 04:35 08/15/18 08/16/18 08/17/18 05:59 05:59 05:59 Intake Total 2535 1100 Output Total 350 1217 550 Balance 2185 -1075 -550 Blood cultures August 14 no growth Blood cultures August 12 VRE with vancomycin SHELDON greater than 16 Daptomycin SHELDON of 2 TTE negative MRI of the C-spine with significant DJD - Physical Exam General Appearance: alert, no apparent distress, other (Disheveled) EENT: No thrush Respiratory: lungs clear Cardiac/Chest: regular rate, rhythm, No systolic murmur Extremities: other (PICC line right upper extremity looks fine) Abdomen: non-tender, soft Skin: No rash ICD10 Worksheet Patient Problems: Problems Problem Status Onset Common bile duct mass Acute Alcohol dependence Acute Alcoholic intoxication Acute Dehydration Acute Delirium tremens Acute Head injury Acute Heroin abuse Acute Hypokalemia Acute Hypomagnesemia Acute Pneumonia Acute Respiratory failure Acute Seizure Acute
[2018-08-16 13:48] LABS: HEPATITIS B SURFACE ANTIGEN NEGATIVE (NEGATIVE)
--- NOTE | 2018-08-16 13:54 | HOSPPROG ---
Hospitalist Progress Note Assessment/Plan: DIAGNOSES: * Acute Sepsis with increased fevers and hypotension due to biliary disease * Vancomycin Resistant Enterococcal Bacteremia with growth in all bottles -currently on Dapto * Retained CBD stone -initially failed removal by ERCP -subsequent IR transhepatic guided wire rendezvous with successful removal of a common duct stone by ERCP 08/09 -2nd common bile duct stone removed by repeat ERCP 08/14 * cholecystitis noted on CT scan * hypoxemic resp failure, pulmonary edema by cxr but with normal echo -suspect all volume overload -diuresing * Toxic/metabolic encephalopathy due to anesthesia + infection, IVDA -improved overall but still a bit disoriented today * h/o TBI with chronic cognitive dysfunction * history of Heroin abuse -Suboxone (unclear if opiates on drug screen in ER due to suboxone or if he has used heroin recently) * 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, along with marijuana * Etoh abuse -no evidence for withdrawal here * Bipolar/PTSD -seroquel + trazodone * Tobacco dependence -patch * Hep C -HIV negative PLANS: * Continue current antibiotics thru Aug 23 (all here in hospital due to IVDA per ID) * Follow for results of repeat blood cultures * I have ordered Repeat CBC and metabolic panel tomorrow * will give one more dose of Lasix now, follow resps and O2 sats repeat CXR in am * Hep A and B serologies ordered to determine if he is immune, consider vaccines if he is not * Ongoing PT and OT * Continue Suboxone, careful pain management * ongoing substance abuse counseling * He will need gallbladder removed, will review optimal timing with surgery. Given his overall picture I would favor doing during this admission if felt safe reviewed in detail with Dr Garcia today SUBJECTIVE: still some RUQ pain, slowly improving eating ok no sob very weak, not walking very well per his account OBJECTIVE Vitals reviewed: Afebrile since 08/12, vitals otherwise nl Analysis Mgr, my review: Sinus Oxygen: His oxygen requirement is down from 6L yest to 3L today Exam: alert, mildly disoriented today, appears comfortable skin warm dry color ok, no jaundice resps not labored Jugular venous distention is noted lungs very diminished breath sounds, no audible rales or wheeze heart regular, very quiet heart tones but no audible murmur or gallop abd soft, bowel sounds present, still mild RUQ tenderness limbs warm, 1+ bilateral ankle edema iv site ok Microbiology: Vancomycin resistant Enterococcus growing in initial blood cultures, all bottles Repeat surveillance blood cultures 08/14 no growth so far still pending I have reviewed images and radiology reports from yesterday's C spine MRI - there is severe degenerative change with central canal and foramenal stenoses, but there is no osteomyelitis, diskitis or abscess, no cord abnormalities Objective: Vital Signs Temp Pulse Resp BP Pulse Ox 36.9 C 80 16 133/89 H 96 08/16/18 08:00 08/16/18 08:00 08/16/18 08:00 08/16/18 08:00 08/16/18 08:00 Laboratory Results 08/14/18 11:00 08/13/18 04:35 08/15/18 08/16/18 08/17/18 06:59 06:59 06:59 Intake Total 2535 1100 Output Total 350 2175 550 Balance 2185 -1075 -550 PT 12.4 SEC (12.0-15.0) 08/09/18 05:35 INR 0.90 (0.83-1.16) 08/09/18 05:35 - Time Spent With Patient Time Spent with Patient: greater than 35 minutes Time Spent with Patient: Greater than 35 minutes spent on this patients care, greater than 50% of time spent counseling, educating, and coordinating care regarding the above mentioned plan. ICD10 Worksheet Patient Problems: Problems Problem Status Onset Common bile duct mass Acute Alcohol dependence Acute Alcoholic intoxication Acute Dehydration Acute Delirium tremens Acute Head injury Acute Heroin abuse Acute Hypokalemia Acute Hypomagnesemia Acute Pneumonia Acute Respiratory failure Acute Seizure Acute
[2018-08-16 13:59] LABS: HEPATITIS A ANTIBODY TOTAL POSITIVE (NEGATIVE); HEPATITIS B CORE AB TOTAL REACTIVE (NEGATIVE)
[2018-08-16] MEDS ORDERED: FUROSEMIDE 20 MG/2 ML VIAL IVP ONE (14:12)
[2018-08-16 14:40] LABS: HEPATITIS A ANTIBODY IGM (BCH) NEGATIVE (NEGATIVE)
[2018-08-16 14:45] LABS: HEPATITIS B CORE AB IGM NEGATIVE (NEGATIVE)
[2018-08-16] MEDS: LORazepam 0.5 MG TAB PO PRN (17:19)
[2018-08-16] MEDS: DAPTOMYCIN IV SCH (21:34)
[2018-08-16] MEDS: NS IV SCH (21:34)
[2018-08-16] MEDS: traZODone 100 MG TAB PO SCH (21:51)
[2018-08-17] MEDS: METHOCARBAMOL 750 MG TAB PO PRN ×3 (01:30→15:13)
[2018-08-17] MEDS: oxyCODONE IR 5 MG TAB PO PRN ×2 (01:30→04:31)
[2018-08-17] MEDS: ACETAMINOPHEN 325 MG TAB PO PRN (01:39)
[2018-08-17] MEDS: LORazepam 0.5 MG TAB PO PRN ×2 (04:31→15:13)
[2018-08-17] MEDS: GABAPENTIN 300 MG CAP PO SCH ×4 (04:32→20:16)
[2018-08-17 05:11] LABS: PLATELET COUNT 171 10^3/uL (150-400)
[2018-08-17] MEDS: NICOTINE 14 MG/24 HR PATCH TD SCH (09:30)
[2018-08-17] MEDS: MULTIVITAMINS W-MINERALS 1 EACH TAB PO SCH (09:32)
[2018-08-17] MEDS: THIAMINE HCL 100 MG TAB PO SCH (09:32)
[2018-08-17] MEDS: QUEtiapine FUMARATE 200 MG TAB PO SCH (09:34)
[2018-08-17] MEDS: FOLIC ACID 1 MG TAB PO SCH (09:34)
[2018-08-17] MEDS: SENNOSIDES/DOCUSATE SODIUM TAB PO SCH ×2 (09:34→20:17)
[2018-08-17] MEDS: ENOXAPARIN 40 MG/0.4 ML SYR SC SCH (09:35)
--- NOTE | 2018-08-17 13:09 | PCMIDPN ---
Assessment/Plan: 1. Tachycardia, with irregularly irregular rhythm: Blood pressure stable. Patient is more phlegmatic today, but denies chest pain or shortness of breath. Neurologic exam is normal. He denies injecting substances into his PICC line, or ingesting any illicit substances. For now, will obtain stat EKG, stat CMP, TSH, CK, troponin, and urine tox screen. May need CT with PE protocol, but will defer to Internal Medicine. Have notified of what's going on, and what I am doing. He will see patient shortly and follow up on these tests. 1. VRE sepsis secondary to cholangitis with obstructing common bile duct stone status post extraction August 14: Continue high-dose daptomycin (10 milligrams/kilogram) for vancomycin resistant Enterococcus faecium bacteremia. CK is flat. Blood cultures cleared quickly; TTE negative for evidence of valvular vegetations. Will likely treat for 10 days; stop date August 23. Patient unfortunately needs to stay here for the duration of his treatment given homelessness, heroin use and other complicating factors. Do not feel confident that he will take oral linezolid as an outpatient. 2. Hepatitis-C antibody positive: Over 25 min spent with this patient today. 08/17/18 13:05 Objective: Daptomycin 580 mg IV daily day 6, stop date August 23 No fevers, but heart rate in the 130s, blood pressure 150/80 Vital Signs Temp Pulse Resp BP Pulse Ox 36.2 C 72 16 169/122 H 92 08/17/18 08:48 08/17/18 08:48 08/17/18 08:48 08/17/18 08:48 08/17/18 08:48 Laboratory Results 08/17/18 04:54 08/17/18 04:54 08/16/18 08/17/18 08/18/18 05:59 05:59 05:59 Intake Total 1100 750 240 Output Total 2175 550 Balance -1075 200 240 Laboratory Tests 08/16/18 08/16/18 12:30 12:30 Hepatitis A Ab Total POSITIVE Hep Bs Antibody Pending HCV RNA (PCR) IUs/ml Pending No new microbiology - Physical Exam General Appearance: other (Alert, but slow to respond to my questions. Have to redirect him.) EENT: No thrush Respiratory: lungs clear Cardiac/Chest: tachycardia, irregularly irregular Extremities: other (PICC line right upper extremity.), No calf tenderness, No swelling Abdomen: non-tender, soft Skin: No rash, No embolic lesions Neuro/Psych: no motor/sensory deficits, oriented x 3, No facial droop ICD10 Worksheet Patient Problems: Problems Problem Status Onset Common bile duct mass Acute Alcohol dependence Acute Alcoholic intoxication Acute Dehydration Acute Delirium tremens Acute Head injury Acute Heroin abuse Acute Hypokalemia Acute Hypomagnesemia Acute Pneumonia Acute Respiratory failure Acute Seizure Acute
[2018-08-17 14:12] LABS: CREATINE KINASE < 20 IU/L (0-224)
--- NOTE | 2018-08-17 15:28 | CPEKG ---
Test Reason : OPEN Blood Pressure : / mmHG Vent. Rate : 058 BPM Atrial Rate : 057 BPM P-R Int : 122 ms QRS Dur : 108 ms QT Int : 424 ms P-R-T Axes : 069 -71 -07 degrees QTc Int : 417 ms Sinus rhythm Left anterior fascicular block Probable anterior infarct, age indeterminate Confirmed by Collin March ([id number]) on 08/17/2018 3:28:04 PM Referred By: Confirmed By:Collin March
--- NOTE | 2018-08-17 15:34 | ASMTCMCOM ---
CM Note CM Note Notes: Pt to continue receiving high dose dapto with stop date 08/23/18. Per pt request this CM left a voicemail with [facility] updating them on his inpatient status. Pt also provided the [employer] phone number as he has lost his card. Pt has [facility]/homeless resources. Pt d/c plan remains d/c to [facility], pt may requires [facility] f/u appt, Medicaid transport and potentially clothing. Date Signed: 08/17/2018 03:33 PM Electronically Signed By:BELLA Reyez
[2018-08-17] MEDS: LORazepam 2 MG/ML INJ IVP PRN (18:13)
--- NOTE | 2018-08-17 18:27 | HOSPPROG ---
Hospitalist Progress Note Assessment/Plan: DIAGNOSES: * Acute Sepsis with increased fevers and hypotension due to biliary disease -sepsis resolved * Vancomycin Resistant Enterococcal Bacteremia with growth in all bottles; biliary source -currently on Dapto * Retained CBD stone -initially failed removal by ERCP -subsequent IR transhepatic guided wire rendezvous with successful removal of a common duct stone by ERCP 08/09 -2nd common bile duct stone removed by repeat ERCP 08/14 after persisting pain and fever and CT scan showing a new stone * cholecystitis noted on CT scan * hypoxemic resp failure, pulmonary edema by cxr but with normal echo -suspect all volume overload -has improved very nicely with diuresis so far * Toxic/metabolic encephalopathy due to anesthesia + infection, IVDA -improved overall but still a bit disoriented today * h/o TBI with chronic cognitive dysfunction * history of Heroin abuse -Suboxone (unclear if opiates on drug screen in ER due to suboxone or if he has used heroin recently) * 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 Ativan * Tobacco dependence, -patch * Hep C -HIV negative -has evidence of prior exposure to hepatitis A and B, so vaccines not indicated PLANS: * Continue current antibiotics thru Aug 23 (all here in hospital due to IVDA per ID) * Follow for results of repeat blood cultures * Hep A and B serologies ordered to determine if he is immune, consider vaccines if he is not * Ongoing PT and OT * Continue Suboxone, careful pain management * ongoing substance abuse counseling * He will need gallbladder removed, will review optimal timing with surgery. Given his overall picture I would favor doing during this admission if felt safe reviewed in detail with Dr Garcia today SUBJECTIVE: still some RUQ pain, slowly improving eating ok no sob very weak, not walking very well per his account Complains of some anxiety which is chronic for him OBJECTIVE Vitals reviewed: Afebrile since 08/12, vitals otherwise nl Supervisor [employer], my review: Sinus Oxygen: O2 need further decreased to 2 L this evening Exam: alert, better oriented today, appears comfortable skin warm dry color ok, no jaundice resps not labored Jugular venous distention is noted lungs very diminished breath sounds, no audible rales or wheeze heart regular, very quiet heart tones but no audible murmur or gallop abd soft, bowel sounds present, still mild RUQ tenderness limbs warm, 1+ bilateral ankle edema iv site ok Lab data: Normal liver panel, electrolytes, renal function Slight decrease in hemoglobin otherwise stable CBC Microbiology: Vancomycin resistant Enterococcus growing in initial blood cultures, all bottles Repeat surveillance blood cultures 08/14 no growth so far still pending Objective: Vital Signs Temp Pulse Resp BP Pulse Ox 36.9 C 68 16 124/94 H 94 08/17/18 16:00 08/17/18 16:00 08/17/18 16:00 08/17/18 16:00 08/17/18 16:00 Laboratory Results 08/17/18 04:54 08/17/18 13:15 08/16/18 08/17/18 08/18/18 06:59 06:59 06:59 Intake Total 1100 750 240 Output Total 2175 550 Balance -1075 200 240 PT 12.4 SEC (12.0-15.0) 08/09/18 05:35 INR 0.90 (0.83-1.16) 08/09/18 05:35 - Time Spent With Patient Time Spent with Patient: greater than 35 minutes Time Spent with Patient: Greater than 35 minutes spent on this patients care, greater than 50% of time spent counseling, educating, and coordinating care regarding the above mentioned plan. ICD10 Worksheet Patient Problems: Problems Problem Status Onset Common bile duct mass Acute Alcohol dependence Acute Alcoholic intoxication Acute Dehydration Acute Delirium tremens Acute Head injury Acute Heroin abuse Acute Hypokalemia Acute Hypomagnesemia Acute Pneumonia Acute Respiratory failure Acute Seizure Acute
[2018-08-17] MEDS: DAPTOMYCIN IV SCH (20:14)
[2018-08-17] MEDS: NS IV SCH (20:14)
[2018-08-17] MEDS: traZODone 100 MG TAB PO SCH (20:16)
[2018-08-18] MEDS: GABAPENTIN 300 MG CAP PO SCH ×4 (05:36→20:20)
[2018-08-18] MEDS: LORazepam 0.5 MG TAB PO PRN ×2 (05:36→16:27)
[2018-08-18] MEDS: QUEtiapine FUMARATE 200 MG TAB PO SCH (09:24)
[2018-08-18] MEDS: MULTIVITAMINS W-MINERALS 1 EACH TAB PO SCH (09:24)
[2018-08-18] MEDS: THIAMINE HCL 100 MG TAB PO SCH (09:24)
[2018-08-18] MEDS: FOLIC ACID 1 MG TAB PO SCH (09:25)
[2018-08-18] MEDS: SENNOSIDES/DOCUSATE SODIUM TAB PO SCH ×2 (09:27→20:20)
[2018-08-18] MEDS: ENOXAPARIN 40 MG/0.4 ML SYR SC SCH (09:28)
[2018-08-18] MEDS: NICOTINE 14 MG/24 HR PATCH TD SCH (09:30)
[2018-08-18] MEDS: ACETAMINOPHEN 325 MG TAB PO PRN ×3 (09:37→18:00)
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
[2018-08-18] MEDS: METHOCARBAMOL 750 MG TAB PO PRN (16:26)
[2018-08-18] MEDS: KETOROLAC 30 MG/1 ML SDV IVP PRN (16:27)
[2018-08-18] MEDS: LORazepam 2 MG/ML INJ IVP PRN (17:53)
[2018-08-18] MEDS: NS IV SCH (20:20)
[2018-08-18] MEDS: traZODone 100 MG TAB PO SCH (20:20)
[2018-08-18] MEDS: DAPTOMYCIN IV SCH (20:20)
[2018-08-19] MEDS: KETOROLAC 30 MG/1 ML SDV IVP PRN (06:33)
[2018-08-19] MEDS: GABAPENTIN 300 MG CAP PO SCH ×4 (06:33→20:09)
[2018-08-19] MEDS: LORazepam 0.5 MG TAB PO PRN ×2 (06:34→15:43)
[2018-08-19] MEDS: FOLIC ACID 1 MG TAB PO SCH (09:34)
[2018-08-19] MEDS: SENNOSIDES/DOCUSATE SODIUM TAB PO SCH ×2 (09:34→20:10)
[2018-08-19] MEDS: QUEtiapine FUMARATE 200 MG TAB PO SCH (09:34)
[2018-08-19] MEDS: THIAMINE HCL 100 MG TAB PO SCH (09:34)
[2018-08-19] MEDS: MULTIVITAMINS W-MINERALS 1 EACH TAB PO SCH (09:34)
[2018-08-19] MEDS: ENOXAPARIN 40 MG/0.4 ML SYR SC SCH (09:35)
[2018-08-19] MEDS: NICOTINE 14 MG/24 HR PATCH TD SCH (09:35)
[2018-08-19] MEDS: ACETAMINOPHEN 325 MG TAB PO PRN ×2 (12:45→20:09)
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
[2018-08-19] MEDS: METHOCARBAMOL 750 MG TAB PO PRN (15:43)
[2018-08-19] MEDS: traZODone 100 MG TAB PO SCH (20:10)
[2018-08-19] MEDS: NS IV SCH (20:11)
[2018-08-19] MEDS: DAPTOMYCIN IV SCH (20:11)
[2018-08-20] MEDS: LORazepam 0.5 MG TAB PO PRN ×3 (05:22→18:18)
[2018-08-20] MEDS: METHOCARBAMOL 750 MG TAB PO PRN ×3 (05:22→19:29)
[2018-08-20] MEDS: ACETAMINOPHEN 325 MG TAB PO PRN ×2 (05:22→19:28)
[2018-08-20] MEDS: GABAPENTIN 300 MG CAP PO SCH ×4 (05:22→19:29)
[2018-08-20] MEDS: NICOTINE 14 MG/24 HR PATCH TD SCH (08:54)
[2018-08-20] MEDS: SENNOSIDES/DOCUSATE SODIUM TAB PO SCH ×2 (08:54→19:29)
[2018-08-20] MEDS: QUEtiapine FUMARATE 200 MG TAB PO SCH (08:54)
[2018-08-20] MEDS: THIAMINE HCL 100 MG TAB PO SCH (08:54)
[2018-08-20] MEDS: FOLIC ACID 1 MG TAB PO SCH (08:54)
[2018-08-20] MEDS: MULTIVITAMINS W-MINERALS 1 EACH TAB PO SCH (08:54)
[2018-08-20] MEDS: ENOXAPARIN 40 MG/0.4 ML SYR SC SCH (08:58)
--- NOTE | 2018-08-20 09:32 | HOSPPROG ---
Hospitalist Progress Note Assessment/Plan: 58-year-old gentleman with a history of alcohol and heroin dependence last with last use 5 days ago, bipolar disorder with PTSD who presents emergency department who presents emergency department with sudden onset of epigastric/ right upper quadrant abdominal pain. First encounter, chart reviewed. * Acute Sepsis with increased fevers and hypotension due to biliary disease -resolved * Vancomycin Resistant Enterococcal Bacteremia with growth in all bottles; biliary source -daptomycin: CPK stable -here in the hospital till August 23 * Retained CBD stone -initially failed removal by ERCP -subsequent IR transhepatic guided wire rendezvous with successful removal of a common duct stone by ERCP 08/09 -2nd common bile duct stone removed by repeat ERCP 08/14 after persisting pain and fever and CT scan showing a new stone * cholecystitis noted on CT scan - needs lap jv before dc, will discuss w surgery today -reviewed it w ID and it is fine to do this surgery anytime at this point * hypoxemic resp failure, pulmonary edema by cxr but with normal echo -resolved w diuresis * Toxic/metabolic encephalopathy due to anesthesia + infection, IVDA -resolved * h/o TBI with chronic cognitive dysfunction * history of Heroin abuse -Suboxone (unclear if opiates on drug screen in ER due to Suboxone or if he has used heroin recently) * 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 Ativan * Tobacco dependence, -patch * Hep C -HIV negative -has evidence of prior exposure to hepatitis A and B, so vaccines not indicated * chest pain -none further *elevated TSH -recheck in OP setting, not significantly high *plan: get surgery involved to get his gallbladder out, patient very unlikely to get any f/u care. I explained to Pepe that he needs his gallbladder out and he is fine w this. Subjective: Pepe says he is cold this morning, eating well, has no complaints. Objective: Vital Signs Temp Pulse Resp BP Pulse Ox 36.6 C 64 16 114/75 90 L 08/19/18 23:15 08/19/18 23:15 08/19/18 23:15 08/19/18 23:15 08/19/18 23:15 Microbiology 08/14/18 15:35 Blood Culture - Final Blood 08/14/18 11:00 Blood Culture - Final Blood Laboratory Results 08/17/18 04:54 08/17/18 13:15 08/19/18 08/20/18 08/21/18 05:59 05:59 05:59 Intake Total 1050 Balance 1050 PT 12.4 SEC (12.0-15.0) 08/09/18 05:35 INR 0.90 (0.83-1.16) 08/09/18 05:35 - Physical Exam Constitutional: chronically ill appearing, other (thin) Eyes: PERRL Ears, Nose, Mouth, Throat: hearing normal Cardiovascular: regular rate and rhythym Respiratory: no respiratory distress Gastrointestinal: normoactive bowel sounds Skin: warm Musculoskeletal: full muscle strength Psychiatric: interacting appropriately ICD10 Worksheet Patient Problems: Problems Problem Status Onset Common bile duct mass Acute Alcohol dependence Acute Alcoholic intoxication Acute Dehydration Acute Delirium tremens Acute Head injury Acute Heroin abuse Acute Hypokalemia Acute Hypomagnesemia Acute Pneumonia Acute Respiratory failure Acute Seizure Acute
--- NOTE | 2018-08-20 13:36 | PDCONSULT ---
<Ermelinda Sierra - Last Filed: 08/20/18 15:44> Order Expediter Note: CONSULTING PROVIDER: Janine Khanna CC: Abdominal pain, sepsis with biliary source HISTORY OF PRESENTING ILLNESS: 58 year old homeless male, with significant history of alcohol and illicit drug use, who initially presented to the ED on with complaints of epigastric, right upper quadrant pain, and vomiting. He was subsequently admitted for treatment and evaluation of VRE sepsis with suspected cause by cholangitis and choledocholithiasis. VRE sepsis has resolved on current daptomycin treatment. He underwent 2 separate ERCP procedures during his hospitalization, with the last being on 08/14/18 for bile duct stone extraction. He is also being managed for pulmonary edema and toxic/metabolic encephalopathy, both of which have improved during his stay. He continues to have mild right upper quadrant pain. No nausea or emesis. Bowel movements have been normal for him. No recent fever or chills. No urinary complaints. No chest pain, palpitations, or shortness of breath. SOCIAL: homeless, alcohol abuse, methadone use, marijuana use, heroin abuse FAMILY HISTORY: noncontributory PAST MEDICAL HISTORY: Alcohol abuse, Heroin abuse, head injury, pneumonia, respiratory failure, depression, opioid withdrawal, delirium tremens, seizures CURRENT MEDICATIONS: Tylenol, Dulcolax, Naloxone, Daptomycin, Lovenox, Flumazenil, Folic acid, gabapentin, haloperidol, Toradol, Lactulose, Lorazepam, Milk of Mag, Methocarbamol, multivitamin, Nicoderm, Zofran, Miralax, Seroquel, Senokot, Thiamine, Trazodone HOME MEDICATIONS: Seroquel, multivitamin, gabapentin, trazodone, naloxone ALLERGIES: NKDA REVIEW OF SYSTEMS: A 10-point review of systems was reviewed and otherwise negative except stated in HPI above. PHYSICAL EXAM: VITALS: 108/72, HR 72, 93% O2 sat room air, RR 16, Temp 36.8C. GEN: alert and oriented x3, appears comfortable, in no acute distress, afebrile. HEENT: Anicteric sclera. SKIN: normal, no jaundice. HEART: regular rate and rhythm. LUNGS: clear to auscultation bilaterally. ABDOMEN: soft, nondistended, mild right upper quadrant tenderness with palpation. NEUROLOGIC: nonfocal. EXTREMITIES: unremarkable. PSYCHIATRIC: appropriate during exam Reviewed patient labs, imaging, and hospital reports. ASSESSMENT/PLAN: Choledocholithiasis with multiple common bile duct stone extractions. Agree with proceeding with laparoscopic cholecystectomy. Discussed risks and benefits of procedure to patient including but not limited to bleeding , infection, retained bile duct stone, and bile duct injury. All questions addressed. Will schedule surgery for tomorrow am. Patient seen and evaluated by Dr. Manriquez. <Markos Manriquez - Last Filed: 08/20/18 17:02> Order Expediter Note: Agree with above findings. The patient is clinically stable for cholecystectomy. The risks benefits and alternatives to the procedure been outlined clearly with the patient. Consent will be obtained. Perioperative antibiotics not necessary due to his current regimen. May require open as post laparoscopic cholecystectomy from previous manipulation from ERCP and percutaneous transhepatic cholangiogram. All questions addressed. Anticipate 2 day postoperative stay for pain control and convalescence
[2018-08-20] MEDS: KETOROLAC 30 MG/1 ML SDV IVP PRN (15:58)
[2018-08-20] MEDS: LORazepam 2 MG/ML INJ IVP PRN (16:58)
[2018-08-20] MEDS: traZODone 100 MG TAB PO SCH (19:30)
[2018-08-20] MEDS: NS IV SCH (19:31)
[2018-08-20] MEDS: DAPTOMYCIN IV SCH (19:31)
[2018-08-21] MEDS: GABAPENTIN 300 MG CAP PO SCH ×4 (00:10→20:51)
[2018-08-21] MEDS: LORazepam 2 MG/ML INJ IVP PRN ×2 (07:01→11:31)
[2018-08-21] MEDS ORDERED: BUPIVACAINE 0.5% 30 ML SDV ONE (07:43)
[2018-08-21] MEDS ORDERED: LIDO/EPI 1% **for epidural** 30 ML SDV ONE (07:44)
--- NOTE | 2018-08-21 07:55 | PDANEPAE ---
ANE History of Present Illness choledocholithiasis s/p ERCP x2 ANE Past Medical History - Cardiovascular History Hx Hypertension: No Hx Arrhythmias: Yes Hx Chest Pain: No Hx Coronary Artery / Peripheral Vascular Disease: No Cardiovascular History Comment: irregular heart beat on propranolol until a few yrs ago when pt stopped taking it. - Pulmonary History Hx COPD: No Hx Asthma/Reactive Airway Disease: No Hx Oxygen in Use at Home: No Hx Sleep Apnea: Yes Sleep Apnea Screening Result - Last Documented: Positive Pulmonary History Comment: Pt denies any MARC, but does report insomnia. - Endocrine History Hx Diabetes: No Obesity: no - Renal History Hx Renal Disorders: No - Liver History Hx Hepatic Disorders: Yes Hepatic History Comment: hepatitis C - Neurological & Psychiatric Hx Hx Neurological and Psychiatric Disorders: Yes Neurological / Psychiatric History Comment: bipolar d/o, h/o heroine use - Cancer History Hx Cancer: No - GI History Hx Gastrointestinal Disorders: No ANE Review of Systems Review of systems is: negative Review of Systems: ANE Patient History - Allergies Allergies/Adverse Reactions: No Known Allergies Allergy (Verified 08/06/18 00:56) - Home Medications Home medications: home medication list seen and reviewed Home Medications: Buprenorphine HCl/Naloxone HCl [Suboxone 8 mg-2 mg Sl Film] 1 each SL DAILY 08/07 [Last Taken Unknown] QUEtiapine FUMARATE [Seroquel 200 mg (*)] 200 - 400 mg PO DAILY 08/01/18 [Last Taken Unknown] traZODone [traZODONE 100MG (*)] 200 mg PO HS 08/01/18 [Last Taken Unknown] Gabapentin [Neurontin 300 MG (*)] 300 mg PO QID 08/06/18 [Last Taken Unknown] Herbals/Supplements -Info Only 1 ea PO DAILY 08/06/18 [Last Taken Unknown] Multivitamins [Multivitamin (*)] 1 each PO DAILY 08/06/18 [Last Taken Unknown] - NPO status NPO Since - Liquids (Date): 08/21/18 NPO Since - Liquids (Time): 00:00 NPO Since - Solids (Date): 08/21/18 NPO Since - Solids (Time): 00:00 - Anes Hx Anes Hx: no prior problems - Smoking Hx Smoking Status: Current every day smoker - Alcohol Use Alcohol Use: Heavy (Five days previously heavy use of liquor. Drinks 1 pint of hard liquor daily.) ANE Labs/Vital Signs - Labs Result Diagrams: 08/17/18 04:54 08/17/18 13:15 - Vital Signs Blood Pressure: 131/87 Heart Rate: 72 Respiratory Rate: 14 O2 Sat (%): 92 Height: 172.72 cm Weight: 58.06 kg ANE Physical Exam - Airway Neck exam: FROM Mallampati Score: Class 1 Mouth exam: poor dentition - Pulmonary Pulmonary: no respiratory distress - Cardiovascular Cardiovascular: regular rate and rhythym - ASA Status ASA Status: III ANE Anesthesia Plan Anesthesia Plan: general endotracheal anesthesia
[2018-08-21] MEDS ORDERED: fentaNYL 100 MCG/2 ML INJ ONE ×2 (08:01)
[2018-08-21] MEDS ORDERED: PROPOFOL 200 MG/20 ML VIAL ONE (08:01)
[2018-08-21] MEDS ORDERED: ROCURONIUM 50 MG/5 ML VIAL ONE (08:01)
--- NOTE | 2018-08-21 08:01 | SOAPPROG ---
SOAP Progress Note Assessment/Plan: Assessment/Plan: No new concerns overnight. Plan laparoscopic cholecystectomy today all questions addressed. Additional antibiotics perioperatively. 08/21/18 08:00 Objective: Vital Signs Temp Pulse Resp BP Pulse Ox 36.2 C 72 14 131/87 H 92 08/21/18 07:40 08/21/18 07:55 08/21/18 07:55 08/21/18 07:55 08/21/18 07:55 Microbiology 08/14/18 15:35 Blood Culture - Final Blood 08/14/18 11:00 Blood Culture - Final Blood Laboratory Results 08/17/18 04:54 08/17/18 13:15 PT 12.4 SEC (12.0-15.0) 08/09/18 05:35 INR 0.90 (0.83-1.16) 08/09/18 05:35 ICD10 Worksheet Patient Problems: Problems Problem Status Onset Common bile duct mass Acute Alcohol dependence Acute Alcoholic intoxication Acute Dehydration Acute Delirium tremens Acute Head injury Acute Heroin abuse Acute Hypokalemia Acute Hypomagnesemia Acute Pneumonia Acute Respiratory failure Acute Seizure Acute
[2018-08-21] MEDS ORDERED: LIDOCAINE 2% 5 ML SDV ONE ×2 (08:02→08:37)
--- NOTE | 2018-08-21 08:27 | POSTANESTH ---
Post Anesthetic Evaluation Cardiovascular Status: Normal, Stable Respiratory Status: Normal, Stable Level of Consciousness/Mental Status: Can Participate in Eval, Mildly Sleepy, Arousable Pain Control: Adequate, Prn Tx Ordered Nausea/Vomiting Control: Adequate, Prn Tx Ordered Complications Possibly Related to Anesthesia: None Noted
[2018-08-21] MEDS ORDERED: SUGAMMADEX SODIUM 200 MG/2 ML VIAL IVP ONE (08:36)
[2018-08-21] MEDS ORDERED: KETOROLAC 30 MG/1 ML SDV ONE (08:37)
[2018-08-21] MEDS ORDERED: ONDANSETRON 4 MG/2 ML VIAL ONE (08:37)
[2018-08-21] MEDS ORDERED: HYDROmorphONE/DILAUDID 2 MG/ML INJ IVP PRN (09:01)
[2018-08-21] MEDS ORDERED: ALBUTEROL 3 ML DEYVIAL IH PRN (09:01)
[2018-08-21] MEDS ORDERED: ONDANSETRON 4 MG/2 ML VIAL IVP PRN (09:01)
[2018-08-21] MEDS ORDERED: oxyCODONE IR 5 MG TAB PO PRN (09:01)
[2018-08-21] MEDS ORDERED: ACETAMINOPHEN 500 MG TAB PO PRN (09:01)
[2018-08-21] MEDS ORDERED: HYDROCODONE/APAP 5/325 TAB PO PRN (09:01)
[2018-08-21] MEDS ORDERED: NALOXONE HCL 0.4 MG/ML INJ IVP PRN (09:01)
[2018-08-21] MEDS ORDERED: LR 500 ML IV PRN (09:01)
[2018-08-21] MEDS ORDERED: fentaNYL 100 MCG/2 ML INJ IVP PRN (09:01)
[2018-08-21] MEDS ORDERED: DIAZEPAM 5 MG/ML 1 ML SYR IVP PRN (09:01)
--- NOTE | 2018-08-21 09:19 | POSTOPPROG ---
Post Op Note Date of Operation: 08/21/18 Surgeon: Markos Manriquez Anesthesiologist: Faby Grace Anesthesia: GET(General Endotracheal) Pre-op Diagnosis: Choledocholithiasis Post-op Diagnosis: same Procedure: Laparoscopic cholecystectomy Inf/Abcess present in the surg proc area at time of surgery?: Yes Depth: Organ Space EBL: Minimal Specimen(s): Gallbladder to permanent pathology
--- NOTE | 2018-08-21 09:25 | SUROPNOTE ---
[facility] Operative Report - Surgery Date of surgery: 08/21/2018 Indications: This is a 58-year-old gentleman with known liver disease presenting with choledocholithiasis and VRE. He has been on antibiotics and has had multiple procedures including several ERCPs and percutaneous transhepatic cholangiogram for the ability to access the duct in a duodenal diverticulum. He has been apprised of the risks benefits and alternatives surgery and is a agree to a laparoscopic cholecystectomy. Preop diagnosis: Choledocholithiasis Postop: Same Procedure laparoscopic cholecystectomy Surgeon: Dr. Manriquez Anesthesiologist: Dr. Grace general endotracheal anesthesia Specimen: Gallbladder to permanent pathology EBL 15 mL Fluid given 1 L crystalloid Procedure: Patient was brought to the operating room and placed supine on the operating room table. Time-out procedure was performed according his usual standards. Patient had general endotracheal anesthesia established abdomen is prepped chlorhexidine in a normal sterile fashion. Local anesthetic was infused in skin and subcutaneous tissues of the trocar sites and open supraumbilical trocar placement was done in the standard fashion. The abdomen is insufflated to 15 torr with carbon dioxide he has somewhat intrahepatic gallbladder. There is no other pathology that is noted. Working trocars were placed in the subxiphoid and right subcostal areas under direct visualization the gallbladder is and mobilized in the field of dissection and cystic artery and cystic duct are identified in the triangle of calot triply clipped and ligated. The gallbladder was brought out through the umbilical incision. The abdomen is inspected he has some of bleeding from all the trocar sites and skin puncture sites. The liver bed is dry and hemostasis assured working trocars were removed. Hemostasis is then on obtained at all the trocar sites fascia was reapproximated at the umbilical incision and all incisions are reapproximated the skin level using 4 Monocryl. Dermabond was applied the patient was awakened extubated taken to recovery room stable condition no immediate complications.
[2018-08-21] MEDS: OXYCODONE/APAP 5/325 TAB PO PRN ×3 (11:01→21:15)
[2018-08-21] MEDS: MULTIVITAMINS W-MINERALS 1 EACH TAB PO SCH (11:03)
[2018-08-21] MEDS: QUEtiapine FUMARATE 200 MG TAB PO SCH (11:03)
[2018-08-21] MEDS: SENNOSIDES/DOCUSATE SODIUM TAB PO SCH ×2 (11:04→20:51)
[2018-08-21] MEDS: THIAMINE HCL 100 MG TAB PO SCH (11:04)
[2018-08-21] MEDS: FOLIC ACID 1 MG TAB PO SCH (11:04)
[2018-08-21] MEDS: NICOTINE 14 MG/24 HR PATCH TD SCH (11:06)
[2018-08-21] MEDS: ENOXAPARIN 40 MG/0.4 ML SYR SC SCH (11:07)
--- NOTE | 2018-08-21 11:39 | ASMTCMCOM ---
CM Note CM Note Notes: Pt had lap jv. Plan remains pt will stay at hospital until IV antibiotics complete, 08/23/18. Pt has [facility] appt 08/23/18, may require Medicaid transport. Date Signed: 08/21/2018 11:38 AM Electronically Signed By:BELLA Reyez
--- NOTE | 2018-08-21 15:59 | HOSPPROG ---
Hospitalist Progress Note Assessment/Plan: 58-year-old gentleman with a history of alcohol and heroin dependence last with last use 5 days ago, bipolar disorder with PTSD who presents to the emergency department with sudden onset of epigastric/right upper quadrant abdominal pain. First encounter, chart reviewed. * Acute Sepsis with increased fevers and hypotension due to biliary disease -resolved -cont dapto for VRE * Vancomycin Resistant Enterococcal Bacteremia with growth in all bottles; biliary source -daptomycin: CPK stable -here in the hospital till August 23 * Retained CBD stone - jv today * cholecystitis noted on CT scan- post op from cholecystectomy today. I discussed the case with his surgeon. patient can advance diet. * hypoxemic resp failure, pulmonary edema by cxr but with normal echo -resolved w diuresis * Toxic/metabolic encephalopathy due to anesthesia + infection, IVDA -resolved * h/o TBI with chronic cognitive dysfunction * history of Heroin abuse -Suboxone (unclear if opiates on drug screen in ER due to Suboxone or if he has used heroin recently) * 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 Ativan * Tobacco dependence, -patch * Hep C -HIV negative -has evidence of prior exposure to hepatitis A and B, so vaccines not indicated * chest pain -none further *elevated TSH -recheck in OP setting, not significantly high Plan to continue dapto until August 23. Subjective: patient having ab pain. otherwise tolerating PO well. no other complaints Objective: Vital Signs Temp Pulse Resp BP Pulse Ox 36.7 C 87 14 114/78 91 L 08/21/18 12:20 08/21/18 12:20 08/21/18 12:20 08/21/18 12:20 08/21/18 12:20 Laboratory Results 08/17/18 04:54 08/17/18 13:15 08/20/18 08/21/18 08/22/18 05:59 05:59 05:59 Intake Total 900 Balance 900 PT 12.4 SEC (12.0-15.0) 08/09/18 05:35 INR 0.90 (0.83-1.16) 08/09/18 05:35 - Physical Exam Constitutional: no apparent distress, appears nourished, not in pain Eyes: PERRL, anicteric sclera, EOMI Ears, Nose, Mouth, Throat: moist mucous membranes, hearing normal, ears appear normal, no oral mucosal ulcers Cardiovascular: regular rate and rhythym, no murmur, rub, or gallop Respiratory: no respiratory distress, no rales or rhonchi, clear to auscultation Gastrointestinal: other (laparascopic scars appear cdi. mildly tender to palpation in adb diffusely. hypoactive BS) Genitourinary: no bladder fullness, no bladder tenderness, no renal bruits Skin: no rashes or abrasions, no fluctuance, no induration Musculoskeletal: full muscle strength, no muscle tenderness, normal joint ROM Neurologic: AAOx3, sensation intact bilaterally Psychiatric: interacting appropriately, not anxious, not encephalopathic, thought process linear Lymph, Heme, Immunologic: no cervical LAD, no supraclavicular LAD ICD10 Worksheet Patient Problems: Problems Problem Status Onset Common bile duct mass Acute Alcohol dependence Acute Alcoholic intoxication Acute Dehydration Acute Delirium tremens Acute Head injury Acute Heroin abuse Acute Hypokalemia Acute Hypomagnesemia Acute Pneumonia Acute Respiratory failure Acute Seizure Acute
[2018-08-21] MEDS: DAPTOMYCIN IV SCH (20:50)
[2018-08-21] MEDS: NS IV SCH (20:50)
[2018-08-21] MEDS: traZODone 100 MG TAB PO SCH (20:51)
[2018-08-21] MEDS: LORazepam 0.5 MG TAB PO PRN (21:16)
[2018-08-22] MEDS: OXYCODONE/APAP 5/325 TAB PO PRN (05:47)
[2018-08-22] MEDS: GABAPENTIN 300 MG CAP PO SCH ×4 (05:47→20:06)
[2018-08-22] MEDS: LORazepam 0.5 MG TAB PO PRN ×2 (05:49→18:52)
[2018-08-22] MEDS: SENNOSIDES/DOCUSATE SODIUM TAB PO SCH ×2 (08:23→20:06)
[2018-08-22] MEDS: MULTIVITAMINS W-MINERALS 1 EACH TAB PO SCH (08:24)
[2018-08-22] MEDS: FOLIC ACID 1 MG TAB PO SCH (08:24)
[2018-08-22] MEDS: THIAMINE HCL 100 MG TAB PO SCH (08:24)
[2018-08-22] MEDS: QUEtiapine FUMARATE 200 MG TAB PO SCH (08:24)
[2018-08-22] MEDS: KETOROLAC 30 MG/1 ML SDV IVP PRN ×3 (08:25→20:46)
[2018-08-22] MEDS: ENOXAPARIN 40 MG/0.4 ML SYR SC SCH (08:25)
[2018-08-22] MEDS: NICOTINE 14 MG/24 HR PATCH TD SCH (08:30)
--- NOTE | 2018-08-22 09:48 | SOAPPROG ---
SOAP Progress Note Assessment/Plan: Assessment/Plan: Doing very well s/p laparoscopic cholecystectomy. No clinical concern for infection. May eat regular diet as tolerated. Discussed no lifting >30lbs for 2 weeks. Discussed expected healing course. Follow up in outpatient setting 1-2 weeks. Patient is okay for discharge from a surgical standpoint. Patient case discussed with Dr. Manriquez. 08/22/18 09:48 Subjective: s/p laparoscopic cholecystectomy POD #1 for choledocholithiasis and VRE. Doing very well. Eating breakfast during visit. Tolerating regular diet well. No nausea or emesis. Mild abdominal incisional pain and right upper quadrant soreness. Has not had BM since operation. No concerns. Objective: Vital Signs Temp Pulse Resp BP Pulse Ox 36.6 C 68 18 106/66 90 L 08/22/18 07:34 08/22/18 07:34 08/22/18 07:34 08/22/18 07:34 08/22/18 07:34 Laboratory Results 08/17/18 04:54 08/17/18 13:15 08/21/18 08/22/18 08/23/18 05:59 05:59 05:59 Intake Total 1450 Balance 1450 PT 12.4 SEC (12.0-15.0) 08/09/18 05:35 INR 0.90 (0.83-1.16) 08/09/18 05:35 Physical Exam: Gen: A&O x3, appears comfortable, afebrile HEENT: anicteric Skin: normal Abdomen: soft, distended, appropriate incisional tenderness. Incisions clean without erythema or drainage. Extremities: no edema ICD10 Worksheet Patient Problems: Problems Problem Status Onset Common bile duct mass Acute Alcohol dependence Acute Alcoholic intoxication Acute Dehydration Acute Delirium tremens Acute Head injury Acute Heroin abuse Acute Hypokalemia Acute Hypomagnesemia Acute Pneumonia Acute Respiratory failure Acute Seizure Acute
[2018-08-22] MEDS: ACETAMINOPHEN 325 MG TAB PO PRN ×2 (12:16→17:35)
--- NOTE | 2018-08-22 15:03 | HOSPPROG ---
Hospitalist Progress Note Assessment/Plan: 58-year-old gentleman with a history of alcohol and heroin dependence last with last use 5 days ago, bipolar disorder with PTSD who presents to the emergency department with sudden onset of epigastric/right upper quadrant abdominal pain. * Acute Sepsis with increased fevers and hypotension due to biliary disease -resolved -cont dapto for VRE through August 23. * Vancomycin Resistant Enterococcal Bacteremia with growth in all bottles; biliary source -daptomycin: CPK stable -here in the hospital till August 23 * Retained CBD stone - had jv, discussed case with surgery who is fine with discharge at this point. * cholecystitis noted on CT scan- post op jv, tolerating PO. fine to discharge from surgeons standpoint. * hypoxemic resp failure, pulmonary edema by cxr but with normal echo -resolved w diuresis * Toxic/metabolic encephalopathy due to anesthesia + infection, IVDA -resolved * h/o TBI with chronic cognitive dysfunction * history of Heroin abuse -Suboxone (unclear if opiates on drug screen in ER due to Suboxone or if he has used heroin recently) * 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 Ativan * Tobacco dependence, -patch * Hep C -HIV negative -has evidence of prior exposure to hepatitis A and B, so vaccines not indicated * chest pain -none further *elevated TSH -recheck in OP setting, not significantly high Plan to continue dapto until August 23. will clear with ID tomorrow, then pull picc and dc if they are okay wtih plan Subjective: patient with mild ab tenderness. tolerating PO, no bm but passing flatus Objective: Vital Signs Temp Pulse Resp BP Pulse Ox 36.6 C 74 19 93/58 L 90 L 08/22/18 12:00 08/22/18 12:00 08/22/18 12:00 08/22/18 12:00 08/22/18 12:00 Laboratory Results 08/17/18 04:54 08/17/18 13:15 08/21/18 08/22/18 08/23/18 05:59 05:59 05:59 Intake Total 1450 Balance 1450 PT 12.4 SEC (12.0-15.0) 08/09/18 05:35 INR 0.90 (0.83-1.16) 08/09/18 05:35 - Physical Exam Constitutional: no apparent distress, appears nourished, not in pain Eyes: PERRL, anicteric sclera, EOMI Ears, Nose, Mouth, Throat: moist mucous membranes, hearing normal, ears appear normal, no oral mucosal ulcers Cardiovascular: regular rate and rhythym, no murmur, rub, or gallop Respiratory: no respiratory distress, no rales or rhonchi, clear to auscultation Gastrointestinal: normoactive bowel sounds, soft, non-tender abdomen, no palpable masses Genitourinary: no bladder fullness, no bladder tenderness, no renal bruits Skin: no rashes or abrasions, no fluctuance, no induration Musculoskeletal: full muscle strength, no muscle tenderness, normal joint ROM Neurologic: AAOx3, sensation intact bilaterally Psychiatric: interacting appropriately, not anxious, not encephalopathic, thought process linear Lymph, Heme, Immunologic: no cervical LAD, no supraclavicular LAD ICD10 Worksheet Patient Problems: Problems Problem Status Onset Common bile duct mass Acute Alcohol dependence Acute Alcoholic intoxication Acute Dehydration Acute Delirium tremens Acute Head injury Acute Heroin abuse Acute Hypokalemia Acute Hypomagnesemia Acute Pneumonia Acute Respiratory failure Acute Seizure Acute
[2018-08-22] MEDS: NS IV SCH (19:52)
[2018-08-22] MEDS: DAPTOMYCIN IV SCH (19:52)
[2018-08-22] MEDS: traZODone 100 MG TAB PO SCH (20:07)
[2018-08-23] MEDS: GABAPENTIN 300 MG CAP PO SCH ×4 (06:00→20:02)
[2018-08-23] MEDS: ACETAMINOPHEN 325 MG TAB PO PRN ×2 (06:01→18:39)
[2018-08-23] MEDS: KETOROLAC 30 MG/1 ML SDV IVP PRN (06:02)
[2018-08-23] MEDS: LORazepam 0.5 MG TAB PO PRN ×3 (06:11→18:39)
[2018-08-23] MEDS: NICOTINE 14 MG/24 HR PATCH TD SCH (08:25)
[2018-08-23] MEDS: SENNOSIDES/DOCUSATE SODIUM TAB PO SCH ×2 (08:26→20:02)
[2018-08-23] MEDS: QUEtiapine FUMARATE 200 MG TAB PO SCH (08:26)
[2018-08-23] MEDS: MULTIVITAMINS W-MINERALS 1 EACH TAB PO SCH (08:26)
[2018-08-23] MEDS: THIAMINE HCL 100 MG TAB PO SCH (08:26)
[2018-08-23] MEDS: FOLIC ACID 1 MG TAB PO SCH (08:27)
[2018-08-23] MEDS: ENOXAPARIN 40 MG/0.4 ML SYR SC SCH (08:27)
[2018-08-23 08:39] LABS: PLATELET COUNT 292 10^3/uL (150-400)
--- NOTE | 2018-08-23 10:30 | PCMIDPN ---
Assessment/Plan: # VRE sepsis secondary to cholangitis with obstructing common bile duct stone status post extraction August 14 and cholecystectomy 08/21/18. Blood cx cleared rapidly and TTE neg --last day high dose daptomycin today, dosed at 8:00 p.m. , Therefore will hold discharge till tomorrow. Can discharge before ID rounds --still w abdominal pain RUQ, seems chronic since surgery and dc narcotics. Labs normal and AF. Discussed w hospitalist --remove PICC before dc # Hepatitis-C antibody positive: VL pending; HIV negative Meds Daptomycin 580mg IV daily, # 10 Microbiology 08/14/18 11:00 Blood Cx (2) Neg 08/12/18 06:10 Blood Cx 09/22: Enterococcus Faecium Vre Subjective: still w abdominal pain, localizing to the right upper quadrant appetite okay Patient is having bowel movements, no diarrhea Objective: Vital Signs Temp Pulse Resp BP Pulse Ox 36.4 C 65 16 154/88 H 90 L 08/23/18 07:55 08/23/18 07:55 08/23/18 07:55 08/23/18 07:55 08/23/18 07:55 Laboratory Results 08/23/18 08:30 08/23/18 08:30 08/22/18 08/23/18 08/24/18 05:59 05:59 05:59 Intake Total 1450 750 Balance 1450 750 - Physical Exam General Appearance: alert, no apparent distress, thin EENT: poor dentition, No thrush Respiratory: lungs clear, No accessory muscle use Cardiac/Chest: regular rate, rhythm, No systolic murmur Extremities: No pedal edema Abdomen: other (soft, mild discomfort to palpation RUQ, 3 small surgical incision w ecchymosis; no peritoneal signs; bowel sounds present) Male Genitalia: No gary Skin: pallor, No rash Neuro/Psych: alert - Line/s RUE PICC Lines: No drainage, No erythema - Time Spent With Patient Time Spent with Patient: greater than 35 minutes Time Spent with Patient: Greater than 35 minutes spent on this patients care, greater than 50% of time spent counseling, educating, and coordinating care regarding the above mentioned plan. ICD10 Worksheet Patient Problems: Problems Problem Status Onset Common bile duct mass Acute Alcohol dependence Acute Alcoholic intoxication Acute Dehydration Acute Delirium tremens Acute Head injury Acute Heroin abuse Acute Hypokalemia Acute Hypomagnesemia Acute Pneumonia Acute Respiratory failure Acute Seizure Acute
[2018-08-23 11:04] LABS: HCV QT RNA PCR 205300 IU/mL (<10)
--- NOTE | 2018-08-23 13:51 | HOSPPROG ---
Hospitalist Progress Note Assessment/Plan: 58-year-old gentleman with a history of alcohol and heroin dependence last with last use 5 days ago, bipolar disorder with PTSD who presents to the emergency department with sudden onset of epigastric/right upper quadrant abdominal pain. * Acute Sepsis with increased fevers and hypotension due to biliary disease -resolved -cont dapto for VRE through August 23. I discussed case with ID, he will get last dose of dapto tonight, then in am pull picc and can discharge. * Vancomycin Resistant Enterococcal Bacteremia with growth in all bottles; biliary source -daptomycin: CPK stable -here in the hospital till August 23 * Retained CBD stone - had jv, discussed case with surgery today who is fine with discharge at this point. * cholecystitis noted on CT scan- post op jv, tolerating PO. fine to discharge from surgeons standpoint. * hypoxemic resp failure, pulmonary edema by cxr but with normal echo -resolved w diuresis * Toxic/metabolic encephalopathy due to anesthesia + infection, IVDA -resolved * h/o TBI with chronic cognitive dysfunction * history of Heroin abuse -Suboxone (unclear if opiates on drug screen in ER due to Suboxone or if he has used heroin recently) * 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 Ativan * Tobacco dependence, -patch * Hep C -Hep C RNA positive. will discuss with patient. LFTs WNL currently. * chest pain -none further *elevated TSH -recheck in OP setting, not significantly high Plan to continue dapto until August 23. will clear with ID tomorrow, then pull picc and dc if they are okay wtih plan Subjective: still with ab tenderness. tolerating pO well. passing flatus. Objective: Vital Signs Temp Pulse Resp BP Pulse Ox 36.4 C 65 16 154/88 H 90 L 08/23/18 07:55 08/23/18 07:55 08/23/18 07:55 08/23/18 07:55 08/23/18 07:55 Laboratory Results 08/23/18 08:30 08/23/18 08:30 08/22/18 08/23/18 08/24/18 05:59 05:59 05:59 Intake Total 1450 750 Balance 1450 750 PT 12.4 SEC (12.0-15.0) 08/09/18 05:35 INR 0.90 (0.83-1.16) 08/09/18 05:35 - Physical Exam Constitutional: no apparent distress, appears nourished, not in pain Eyes: PERRL, anicteric sclera, EOMI Ears, Nose, Mouth, Throat: moist mucous membranes, hearing normal, ears appear normal, no oral mucosal ulcers Cardiovascular: regular rate and rhythym, no murmur, rub, or gallop Respiratory: no respiratory distress, no rales or rhonchi, clear to auscultation Gastrointestinal: normoactive bowel sounds, soft, non-tender abdomen, no palpable masses Genitourinary: no bladder fullness, no bladder tenderness, no renal bruits Skin: no rashes or abrasions, no fluctuance, no induration Musculoskeletal: full muscle strength, no muscle tenderness, normal joint ROM Neurologic: AAOx3, sensation intact bilaterally Psychiatric: interacting appropriately, not anxious, not encephalopathic, thought process linear Lymph, Heme, Immunologic: no cervical LAD, no supraclavicular LAD ICD10 Worksheet Patient Problems: Problems Problem Status Onset Common bile duct mass Acute Alcohol dependence Acute Alcoholic intoxication Acute Dehydration Acute Delirium tremens Acute Head injury Acute Heroin abuse Acute Hypokalemia Acute Hypomagnesemia Acute Pneumonia Acute Respiratory failure Acute Seizure Acute
[2018-08-23] MEDS: traZODone 100 MG TAB PO SCH (20:02)
[2018-08-23] MEDS: DAPTOMYCIN IV SCH (20:03)
[2018-08-23] MEDS: NS IV SCH (20:03)
[2018-08-23] MEDS: LORazepam 2 MG/ML INJ IVP PRN (20:49)
[2018-08-23] MEDS: METHOCARBAMOL 750 MG TAB PO PRN (20:50)
[2018-08-24] MEDS: LORazepam 0.5 MG TAB PO PRN ×2 (00:45→06:47)
[2018-08-24] MEDS: LORazepam 2 MG/ML INJ IVP PRN (04:58)
[2018-08-24] MEDS: ACETAMINOPHEN 325 MG TAB PO PRN (04:59)
[2018-08-24] MEDS: METHOCARBAMOL 750 MG TAB PO PRN (05:01)
[2018-08-24] MEDS: GABAPENTIN 300 MG CAP PO SCH (05:01)
[2018-08-24 08:12] VITALS: BP 137/88
[2018-08-24] MEDS: NICOTINE 14 MG/24 HR PATCH TD SCH (09:23)
[2018-08-24] MEDS: THIAMINE HCL 100 MG TAB PO SCH (09:24)
[2018-08-24] MEDS: FOLIC ACID 1 MG TAB PO SCH (09:25)
[2018-08-24] MEDS: MULTIVITAMINS W-MINERALS 1 EACH TAB PO SCH (09:25)
[2018-08-24] MEDS: QUEtiapine FUMARATE 200 MG TAB PO SCH (09:25)
[2018-08-24] MEDS: ENOXAPARIN 40 MG/0.4 ML SYR SC SCH (09:25)
[2018-08-24] MEDS: SENNOSIDES/DOCUSATE SODIUM TAB PO SCH (09:26)
--- NOTE | 2018-08-24 10:59 | ASMTCMCOM ---
CM Note CM Note Notes: Pt medically stable for d/c to [facility], correction bed reserved. Pt scheduled for [facility] appointment 08/30/18 at 10:30. Pt provided [employer] transport. Date Signed: 08/24/2018 10:58 AM Electronically Signed By:BELLA Reyez
--- NOTE | 2018-08-24 11:24 | GIREPORT ---
[facility] - Endoscopy Department Patient Name: Pepe Stanton Procedure Date: 08/11/2018 11:01 AM Patient Type: Inpatient Attending MD/ ER Physician: Eliceo Ceron MD Procedure: ERCP Indications: Suspected bile duct stone, on I.R. cholangiogram Providers: Eliceo Ceron MD, [facility] Referring MD: [facility] Hospitalist service Medicines: Indomethacin 100 mg CA, See the Anesthesia note for documentation of th e administered medications Complications: No immediate complications. Description of Procedure: After obtaining informed consent, the scope was passed under direct vis ion. Throughout the procedure, the patient's blood pressure, pulse, and oxyg en saturations were monitored continuously. The Duodenal scope was introdu kim through the mouth, and advanced to the duodenum and used to inject cont rast into the bile duct. Findings: I.R. percutaneously placed guidewire could be seen, exiting the papilla , with the distal end exiting through the duodenum wall on the other side . The wire was pulled back, with the distal tip now in the duodenum. This was grasped with a snare, and pulled through the 'scope. Then, a sphinctero tome was "back threaded" over this wire. Cholangiogram showed a 1 cm stone. A 9 mm biliary sphincterotomy was made with a sphincterotome. There was no post-sphincterotomy bleeding. Stone was removed, using a 13.5 mm balloo n. Post balloon-occlusive cholangiogram normal. EGD was performed, to inde ed visualize the stone fragments in the duodenum; the I.R. wire was then removed, and the percutaneous site cleaned with alcohol, topical 'biot placed, and dressed. Estimated Blood Loss: none. Post Op Diagnosis: - cbd stone, as above; removed, via a rendezvous procedure. I.R. placed guidewire removed. Recommendation: - feed - buffcap IV - biot x 1 - recommend lap jv; as per hospitalist service I will sign off; we'll arrange repeat LFTs in about 3 weeks, to make pastrana re they normalize (as I suspect). Else, please [facility] [phone]). Thanks! Attending Participation: I personally performed the entire procedure. Jie Fenton MD Eliceo Ceron MD 08/11/2018 1:28:48 PM This report has been signed electronicallyPeter MD Jie Number of Addenda: 0 Note Initiated On: 08/11/2018 11:01 AM Total Procedure Duration Time 2 hours 37 minutes 25 seconds [email or web address]
--- NOTE | 2018-08-25 10:36 | PDDCSUM ---
Discharge Summary Discharge Summary: Discharge diagnoses; Sepsis secondary to VRE. VRE bacteremia Choledocholithiasis Cholecystitis Bipolar Hepatitis C Suboxone use Patient is a 58-year-old male with past medical history of heroin addiction current on Suboxone, PTSD, TBI, alcohol dependence who originally presented to the ER with complaints of abdominal pain. Imaging was obtained and patient was found to biliary obstruction. He underwent 2 ERCPs with stone extraction. Further evaluation found multiple common bile duct stones. General surgery was consulted for evaluation of cholecystectomy. Blood cultures were drawn that eventually grew out vancomycin-resistant Enterococcus. Infectious Disease was consulted. He was started on daptomycin. Ultimately he was diagnosed with choledocholithiasis and underwent a laparoscopic cholecystectomy. He completed his course of daptomycin on August 23. On the day of discharge he was eating well with minimal abdominal pain and had a soft abdomen and had had a bowel movement. He was homeless and so was discharged to the homeless skilled nursing to follow up with surgery in clinic and to establish care with a primary care doctor Disposition Patient was discharged to the homeless skilled nursing Discharge condition Good Follow-up Patient was discharged to follow up with his general surgeon, infectious disease , and primary care doctor
== END 2018-08-24 10:06 | disposition home or self-care (01) | DRG 710 ==
LOC: EDUNIT# → F1N 03:23 → F2N 15:09 → OBSVTOIN 08-07 15:36 → F3E 08-08 14:36 → F2N 08-13 00:19 → F3N 08-15 19:31
PROVIDERS: ADMIT Family Medicine; ATTEND Family Medicine
PROC: 02HV33Z Insertion of Infusion Device into Superior Vena Cava, Percutaneous Approach (ICD-10-PCS; 2018-08-07)
PROC: 02HV33Z Insertion of Infusion Device into Superior Vena Cava, Percutaneous Approach (ICD-10-PCS; 2018-08-08)
PROC: 0DJ08ZZ Inspection of Upper Intestinal Tract, Via Natural or Artificial Opening Endoscopic (ICD-10-PCS; 2018-08-09)
PROC: BF131ZZ Fluoroscopy of Gallbladder and Bile Ducts using Low Osmolar Contrast (ICD-10-PCS; 2018-08-11)
PROC: 0FC98ZZ Extirpation of Matter from Common Bile Duct, Via Natural or Artificial Opening Endoscopic (ICD-10-PCS; principal; 2018-08-14 12:45)
PROC: 0FT44ZZ Resection of Gallbladder, Percutaneous Endoscopic Approach (ICD-10-PCS; 2018-08-21)
PROC: 0FC98ZZ Extirpation of Matter from Common Bile Duct, Via Natural or Artificial Opening Endoscopic (ICD-10-PCS; 2018-08-24)
DX: A41.81 Sepsis due to Enterococcus (principal); R65.20 Severe sepsis without septic shock; K80.43 Calculus of bile duct with acute cholecystitis with obstruction; B19.20 Unspecified viral hepatitis C without hepatic coma; F10.20 Alcohol dependence, uncomplicated; F11.20 Opioid dependence, uncomplicated; K31.84 Gastroparesis; T40.605A Adverse effect of unspecified narcotics, initial encounter; I38 Endocarditis, valve unspecified; F31.9 Bipolar disorder, unspecified; F43.10 Post-traumatic stress disorder, unspecified; Z87.820 Personal history of traumatic brain injury; Z87.01 Personal history of pneumonia (recurrent); Z59.0 Homelessness
CPT/HCPCS: 80305; 80307; 84484-PO; 86704-90; 86705-90; 86708-90; 86709-90; 87517-90; 92507-GN; 92523-GN; 96374; 97116-GP; 97161-GP; 97165-GO; 97530-GP; 97535-GO; A9585; C1751; C1769; G0378; G0472; G0480; J0295; J0574; J0878; J1610; J1630; J1644; J1650; J1885; J1940; J1956; J2001; J2060; J2270; J2370; J2405; J2543; J2704; J2710; J2765; J2780; J3010; J3370; J3411; J3486; P9041; Q9961; Q9967

== ENCOUNTER 2018-08-25 04:41 | Emergency (ER) | payer MEDICAID ==
[2018-08-25] MEDS ORDERED: NS 1,000 ML IV ONE (04:46)
--- NOTE | 2018-08-25 04:52 | EDPHY ---
H & P Stated Complaint: abd pain to incision sites from jv Time Seen by Provider: 08/25/18 04:49 HPI/ROS: HPI CHIEF COMPLAINT: Abdominal pain HISTORY OF PRESENT ILLNESS: A 58-year-old male, history of alcoholism daily alcohol use, respiratory failure, alcohol withdrawal, homelessness, presents emergency room with abdominal pain. Patient has a history of liver disease, additionally recent choledocholithiasis and gallbladder surgery on August 21. He had a laparoscopic cholecystectomy at that time. He presents emergency room at 5:00 a.m. In the morning from the homeless snf with abdominal pain. He has not any vomiting or diarrhea. No fever. Denies any chest pain or shortness of breath. The patient's main complaint his abdominal pain located at his laparoscopic port site periumbilical. Also complains some mild pain in the lower abdomen. Diffusely. States started earlier tonight. Past Medical History: Alcoholism with alcohol withdrawal, respiratory failure, respiratory failure Past Surgical History: Recent gallbladder surgery. Social History: Alcohol use. Homeless. Family History: Noncontributory ROS REVIEW OF SYSTEMS: 10 Systems were reviewed and negative with the exception of the elements mentioned in the history of present illness. Exam Constitutional thin appearing, frail triage nursing summary reviewed, vital signs reviewed, awake/alert. Eyes normal conjunctivae and sclera, EOMI, PERRLA. HENT normal inspection, atraumatic, moist mucus membranes, no epistaxis, neck supple/ no meningismus, no raccoon eyes. Respiratory clear to auscultation bilaterally, normal breath sounds, no respiratory distress, no wheezing. Cardiovascular rate normal, regular rhythm, no murmur, no edema, distal pulses normal. Gastrointestinal abdomen mildly tender but no peritoneal signs, laparoscopic sites are clean, dry and intact, the site where he has most pain is the periumbilical site I do not appreciate a seroma or hematoma or abscess, the incision is clean, dry and intact without any signs of infection, ecchymosis present to be expected, no rebound, no guarding, normal bowel sounds, no distension, no pulsatile mass. Genitourinary no CVA tenderness. Musculoskeletal no midline vertebral tenderness, full range of motion, no calf swelling, no tenderness of extremities, no meningismus, good pulses, neurovascularly intact. Skin pink, warm, & dry, no rash, skin atraumatic. Neurologic awake, alert and oriented x 3, AAOx3, moves all 4 extremities equally, motor intact, sensory intact, CN II-XII intact, normal cerebellar, normal vision, normal speech. Psychiatric normal mood/affect. Heme/Lymph/Immune no lymphadenopathy. Differential Diagnosis: Differential diagnosis includes but is not limited to and in no particular order: Bowel obstruction, appendicitis, gallbladder disease, diverticulitis, colitis, enteritis, perforated viscus, gastritis, GERD , esophagitis, urinary tract infection, pyelonephritis, kidney stones Medical Decision Making: Plan for this patient IV establishment IV fluid bolus basic blood work, CT scan abdomen pelvis with IV contrast, check alcohol level. Will perform CT abdomen pelvis with IV contrast due to abdominal pain post surgery. Patient does not have any chest pain or shortness of breath or pleuritic pain. Vital signs are stable. Re-evaluation: CT scan abdomen pelvis with IV contrast negative for acute inflammatory process. There is free air in the abdomen however he just had laparoscopic cholecystectomy 4 days ago. This is not a large amount of air. There is no large abscess there is no significant amount of free fluid. Called to me by Dr. Graham. The patient's labs reviewed mild leukocytosis. Patient's vital signs stable and is afebrile. No evidence of alcohol withdrawal here. Abdomen remained soft not significantly tender. No peritoneal signs. Will touch base with his surgeon Dr. Manriquez. Spoke with singh Goode for d/c home. Reviewed case/labs/ct. Updated patient on labs and CT. Plan for discharge. Return precautions discussed with the patient understands return emergency room if develops worsening abdominal pain, fever, vomiting. Patient is comfortable this plan. Abdomen remained soft nontender. Incision sites are healing. No dehiscence and no infection. Source: Patient, EMS - Personal History Current Tetanus/Diphtheria Vaccine: Yes Tetanus Vaccine Date: 2014 - Medical/Surgical History Hx Asthma: No Hx Chronic Respiratory Disease: No Hx Diabetes: No Hx Cardiac Disease: No Hx Renal Disease: No Hx Cirrhosis: No Hx Alcoholism: Yes Hx HIV/AIDS: No Hx Splenectomy or Spleen Trauma: No Other PMH: CHI, PTSD, bipolar, ETOH, TBI. Heroin use, jv - Social History Smoking Status: Current every day smoker Constitutional: Initial Vital Signs Temperature (C) 36.7 C 08/25/18 04:43 Heart Rate 84 08/25/18 04:43 Respiratory Rate 18 08/25/18 04:43 Blood Pressure 129/95 H 08/25/18 04:43 O2 Sat (%) 95 08/25/18 04:43 O2 Delivery Mode Room Air Allergies/Adverse Reactions: No Known Allergies Allergy (Verified 08/25/18 04:46) Home Medications: Medication Instructions Recorded Buprenorphine HCl/Naloxone HCl 1 each SL DAILY 08/01/18 [Suboxone 8 mg-2 mg SL Film] QUEtiapine FUMARATE [Seroquel 200 200 - 400 mg PO DAILY 08/01/18 mg (*)] traZODone [traZODONE 100MG (*)] 200 mg PO HS 08/01/18 Gabapentin [Neurontin 300 MG (*)] 300 mg PO QID 08/06/18 Herbals/Supplements -Info Only 1 ea PO DAILY 08/06/18 Multivitamins [Multivitamin (*)] 1 each PO DAILY 08/06/18 Medical Decision Making - Data Points Laboratory Results: Laboratory Results 08/25/18 05:00 08/25/18 05:00 08/25/18 08/25/18 08/25/18 06:05 05:00 05:00 WBC 14.45 10^3/uL H 10^3/uL (3.80-9.50) RBC 3.96 10^6/uL L 10^6/uL (4.40-6.38) Hgb 11.6 g/dL L g/dL (13.7-17.5) Hct 35.1 % L % (40.0-51.0) MCV 88.6 fL fL (81.5-99.8) MCH 29.3 pg pg (27.9-34.1) MCHC 33.0 g/dL g/dL (32.4-36.7) RDW 14.3 % % (11.5-15.2) Plt Count 316 10^3/uL 10^3/uL (150-400) MPV 9.5 fL fL (8.7-11.7) Neut % (Auto) 79.0 % H % (39.3-74.2) Lymph % (Auto) 8.2 % L % (15.0-45.0) [place] % (Auto) 10.0 % % (4.5-13.0) Eos % (Auto) 2.2 % % (0.6-7.6) Baso % (Auto) 0.2 % L % (0.3-1.7) Nucleat RBC Rel Count 0.0 % % (0.0-0.2) Absolute Neuts (auto) 11.42 10^3/uL H 10^3/uL (1.70-6.50) Absolute Lymphs (auto) 1.18 10^3/uL 10^3/uL (1.00-3.00) Absolute Monos (auto) 1.44 10^3/uL H 10^3/uL (0.30-0.80) Absolute Eos (auto) 0.32 10^3/uL 10^3/uL (0.03-0.40) Absolute Basos (auto) 0.03 10^3/uL 10^3/uL (0.02-0.10) Absolute Nucleated RBC 0.00 10^3/uL 10^3/uL (0-0.01) Immature Gran % 0.4 % % (0.0-1.1) Immature Gran # 0.06 10^3/uL 10^3/uL (0.00-0.10) PT INR APTT VBG Lactic Acid Sodium 134 mEq/L L mEq/L (135-145) Potassium 4.3 mEq/L mEq/L (3.5-5.2) Chloride 95 mEq/L L mEq/L (97-110) Carbon Dioxide 29 mEq/l mEq/l (22-31) Anion Gap 10 mEq/L mEq/L (6-14) BUN 13 mg/dL mg/dL (7-23) Creatinine 0.7 mg/dL mg/dL (0.7-1.3) Estimated GFR > 60 Glucose 111 mg/dL H mg/dL (70-100) Calcium 9.3 mg/dL mg/dL (8.5-10.4) Total Bilirubin 0.9 mg/dL mg/dL (0.1-1.4) Conjugated Bilirubin 0.4 mg/dL mg/dL (0.0-0.5) Unconjugated Bilirubin 0.5 mg/dL mg/dL (0.0-1.1) AST 23 IU/L IU/L (17-59) ALT 20 IU/L L IU/L (21-72) Alkaline Phosphatase 101 IU/L IU/L (38-126) Total Protein 7.5 g/dL g/dL (6.3-8.2) Albumin 3.9 g/dL g/dL (3.5-5.0) Lipase 14 IU/L L IU/L (23-300) Urine Color YELLOW Urine Appearance CLEAR Urine pH 8.0 H (5.0-7.5) Ur Specific [place] 1.006 (1.002-1.030) Urine Protein NEGATIVE (NEGATIVE) Urine Ketones NEGATIVE (NEGATIVE) Urine Blood NEGATIVE (NEGATIVE) Urine Nitrate NEGATIVE (NEGATIVE) Urine Bilirubin NEGATIVE (NEGATIVE) Urine Urobilinogen NEGATIVE EU EU (0.2-1.0) Ur Leukocyte Esterase NEGATIVE (NEGATIVE) Urine Glucose NEGATIVE (NEGATIVE) 08/25/18 08/25/18 05:00 01:41 WBC RBC Hgb Hct MCV MCH MCHC RDW Plt Count MPV Neut % (Auto) Lymph % (Auto) [place] % (Auto) Eos % (Auto) Baso % (Auto) Nucleat RBC Rel Count Absolute Neuts (auto) Absolute Lymphs (auto) Absolute Monos (auto) Absolute Eos (auto) Absolute Basos (auto) Absolute Nucleated RBC Immature Gran % Immature Gran # PT 13.7 SEC SEC (12.0-15.0) INR 1.03 (0.83-1.16) APTT 32.5 SEC SEC (23.0-38.0) VBG Lactic Acid 2.0 mmol/L mmol/L (0.7-2.1) Sodium Potassium Chloride Carbon Dioxide Anion Gap BUN Creatinine Estimated GFR Glucose Calcium Total Bilirubin Conjugated Bilirubin Unconjugated Bilirubin AST ALT Alkaline Phosphatase Total Protein Albumin Lipase Urine Color Urine Appearance Urine pH Ur Specific [place] Urine Protein Urine Ketones Urine Blood Urine Nitrate Urine Bilirubin Urine Urobilinogen Ur Leukocyte Esterase Urine Glucose Medications Given: Discontinued Medications Sodium Chloride (Ns) 1,000 mls @ 0 mls/hr IV EDNOW ONE; Wide Open PRN Reason: Protocol Stop: 08/25/18 04:47 Last Admin: 08/25/18 05:03 Dose: 1,000 mls Departure - Departure Disposition: Home, Routine, Self-Care Clinical Impression: Abdominal pain Condition: Good Instructions: Acute Abdominal Pain (ED) Additional Instructions: 1. Take it easy. No heavy lifting 2. No vigorous movements you're still healing 3. Tylenol Motrin for pain 4. Return to the emergency room if worsening symptoms 5. Issues developed worsening abdominal pain, fever, not doing well return Referrals: Patient,NotPresent [Unknown] - As per Instructions Markos Manriquez MD [Medical Doctor] - As per Instructions
[2018-08-25 05:11] LABS: PLATELET COUNT 316 10^3/uL (150-400)
[2018-08-25 05:19] LABS: INR 1.03 (0.83-1.16); PROTIME(PATIENT) 13.7 SEC (12.0-15.0)
[2018-08-25] MEDS ORDERED: IOPAMIDOL (ISOVUE-300) 100 ML BTL ONE (05:53)
[2018-08-25 06:51] VITALS: BP 132/98
== END 2018-08-25 07:06 | disposition home or self-care (01) ==
LOC: EDUNIT#
DX: R10.9 Unspecified abdominal pain (principal); J96.90 Respiratory failure, unspecified, unspecified whether with hypoxia or hypercapnia; E86.9 Volume depletion, unspecified; F10.10 Alcohol abuse, uncomplicated; Z90.49 Acquired absence of other specified parts of digestive tract; Z59.0 Homelessness
CPT/HCPCS: 80305; 84484-ER; G0480; Q9967

== ENCOUNTER 2018-08-25 20:01 | Emergency (ER) | payer MEDICAID ==
--- NOTE | 2018-08-25 20:26 | EDPHY ---
H & P Smoking Status: Current every day smoker Time Seen by Provider: 08/25/18 20:02 HPI/ROS: Chief complaint. Chest pain, shortness of breath, depression HPI. Patient is a 58-year-old male with complicated recent medical history. He was admitted August 06 for common bile duct mass that turned out the stone. The he had an ERCP x2 with inability to remove. And subsequently on August 21 he had a cholecystectomy. Prior to this he had ascending cholangitis and enterococcal bacteremia in severe sepsis with pleural effusions. He was seen earlier this morning for abdominal pain and had a normal abdominal CT that did shows of small amount of residual free air but no evidence for abscess. In consultation with the surgeon it was felt safe to discharge the patient. He has been quite anxious and depressed. He did meth and drink alcohol today. He has anxiety. He is on a warrant for trespassing. He denies suicide and homicide ideation but quite depressed and wanting to talk to counselor. He complains left-sided chest discomfort worse with breathing. Some shortness of breath. ROS 10 systems were reviewed and negative with the exception of the elements mentioned in the history of present illness (Randy Cooley) Past Medical/Surgical History: Past medical history closed head injury, PTSD, bipolar illness, alcoholism, IVDA , recent cholecystectomy (Randy Cooley) Social History: Single, daily smoker, homeless, recent alcohol and meth (Randy Cooley) Physical Exam: General Appearance: Alert well-developed male mild distress vital signs are stable. Eyes: Pupils equal and round no pallor or injection. ENT, Mouth: Mucous membranes are moist. Respiratory: There are no retractions, lungs are clear to auscultation. Cardiovascular: Regular rate and rhythm. Gastrointestinal: Abdomen is soft and not tender. Healing surgical incisions. Bruising on the abdomen from Lovenox injections Neurological: Awake and alert, sensory and motor exams grossly normal. Skin: Warm and dry, no rashes. Musculoskeletal: Neck is supple nontender. Extremities symmetrical, full range of motion. Psychiatric: Patient is oriented X 3, there is no agitation. (Randy Cooley) Constitutional: Initial Vital Signs Temperature (C) 36.7 C 08/25/18 20:06 Heart Rate 98 08/25/18 20:06 Respiratory Rate 18 08/25/18 20:06 Blood Pressure 162/92 H 08/25/18 20:06 O2 Sat (%) 95 08/25/18 20:06 O2 Delivery Mode Room Air Allergies/Adverse Reactions: No Known Allergies Allergy (Verified 08/25/18 20:06) Home Medications: Medication Instructions Recorded Buprenorphine HCl/Naloxone HCl 1 each SL DAILY 08/01/18 [Suboxone 8 mg-2 mg SL Film] QUEtiapine FUMARATE [Seroquel 200 200 - 400 mg PO DAILY 08/01/18 mg (*)] traZODone [traZODONE 100MG (*)] 200 mg PO HS 08/01/18 Gabapentin [Neurontin 300 MG (*)] 300 mg PO QID 08/06/18 Herbals/Supplements -Info Only 1 ea PO DAILY 08/06/18 Multivitamins [Multivitamin (*)] 1 each PO DAILY 08/06/18 Medical Decision Making - Diagnostics EKG Interpretation: An EKG obtained and was read and documented in trace view. Please see trace view for full reading and report. Sinus rhythm, PVC, no acute ischemic changes (Mitchell Rider) Procedures: IV normal saline, monitor (Randy Cooley) ED Course/Re-evaluation: Patient's care signed out to me with CTA pending. Patient's CT is reassuring for no pulmonary embolism however has diffuse patchy nodular opacities consistent with multi lobar pneumonia verses airspace disease. 2 weeks ago on the he had similar appearing x-ray however it had improved by the . This was during his hospital stay for ascending cholangitis and he is being treated with antibiotics at the time. The patient is here now complaining of pleuritic chest pain. He is not hypoxic or febrile or coughing. He abuses methamphetamine and has a history of heroin abuse although he states he has not used IV drugs in several months. He does however snort methamphetamine and did so today and this is likely the source of these opacities. He did have a transthoracic echocardiogram a few weeks ago that did not show any obvious valvular abnormalities. He also had HIV testing that was negative. He is positive for hep C. I spoke with Dr. Rivas who agrees that the patient does not meet admission for criteria. In light of his recent heavy doses of antibiotics this is likely from the inhalation of foreign particles versus possibly viral. The patient denies history of asthma or COPD. I encouraged him to discontinue methamphetamine abuse and inhalation. He is not hypoxic or tachypneic. He is afebrile. His white blood cell count is decreasing. He states that he will call his sponsor trying get back to the half-way. I will discharge him at this time. Initially he complained of some mild depression but is denying this now. I will refer him to [facility] for further counseling. He is not on a hold. (Mitchell Rider) Care Turn Over: care to Dr. Rider at 2100. (Randy Cooley) - Data Points Laboratory Results: Laboratory Results 08/25/18 20:56 08/25/18 20:56 Medications Given: Discontinued Medications Sodium Chloride (Ns) 1,000 mls @ 0 mls/hr IV ONCE ONE; Wide Open PRN Reason: Protocol Stop: 08/25/18 20:42 Last Admin: 08/25/18 21:18 Dose: 1,000 mls Lorazepam (Ativan) 1 mg PO EDNOW ONE Stop: 08/25/18 20:43 Last Admin: 08/25/18 21:18 Dose: 1 mg Point of Care Test Results: Chemistry 08/25/18 21:12 POC Troponin I 0.00 ng/mL ng/mL (0.00-0.08) Departure - Departure Disposition: Home, Routine, Self-Care Clinical Impression: Methamphetamine abuse Condition: Fair Instructions: Methamphetamine (By mouth) Additional Instructions: Path to Home~([address]; bus: [address], [address]). Referrals: NONE *PRIMARY CARE P,. [Primary Care Provider] - As per Instructions [facility],. [Clinic] - As per Instructions [facility],. [Clinic] - 1 day, if not improved
[2018-08-25] MEDS ORDERED: NS 1,000 ML IV ONE (20:41)
[2018-08-25] MEDS ORDERED: LORazepam 1 MG TAB PO ONE (20:42)
[2018-08-25] MEDS ORDERED: IOPAMIDOL (ISOVUE 370) 100 ML BTL IV ONE (20:44)
[2018-08-25 21:09] LABS: PLATELET COUNT 324 10^3/uL (150-400)
[2018-08-25 21:24] LABS: INR 1.04 (0.83-1.16); PROTIME(PATIENT) 13.8 SEC (12.0-15.0)
--- NOTE | 2018-08-25 21:43 | CPEKG ---
Test Reason : OPEN Blood Pressure : / mmHG Vent. Rate : 091 BPM Atrial Rate : 094 BPM P-R Int : 123 ms QRS Dur : 099 ms QT Int : 395 ms P-R-T Axes : 070 -76 020 degrees QTc Int : 487 ms Sinus rhythm Ventricular premature complex Probable left atrial enlargement Left anterior fascicular block Abnormal R-wave progression, early transition Confirmed by Mitchell Rider ([id number]) on 08/25/2018 9:43:25 PM Referred By: Confirmed By:Mitchell Rider
[2018-08-25 22:57] VITALS: BP 157/95
== END 2018-08-25 23:01 | disposition home or self-care (01) ==
LOC: EDUNIT#
DX: J98.4 Other disorders of lung (principal); E86.9 Volume depletion, unspecified; F15.20 Other stimulant dependence, uncomplicated; F43.10 Post-traumatic stress disorder, unspecified; Z90.49 Acquired absence of other specified parts of digestive tract; Z59.0 Homelessness
CPT/HCPCS: 80305; 84484-ER; G0480; Q9967